=== PATIENT | female | born 1985 | race Caucasian/White ===

== ENCOUNTER 2020-03-11 16:19 | Outpatient (CLI) | payer MEDICAID, SELFPAY ==
--- NOTE | 2020-03-11 | XRR_ITS ---
PROCEDURE INFORMATION: Exam: XR Chest, 2 Views Exam date and time: 03/11/2020 4:50 PM Age: 34 years old Clinical indication: Cough TECHNIQUE: Imaging protocol: XR of the chest Views: 2 views. COMPARISON: CR Chest 2 views* [id number] 05/05/2017 3:21 PM FINDINGS: Lungs: Unremarkable. No consolidation. Pleural space: Unremarkable. No pleural effusion. No pneumothorax. Heart/Mediastinum: Unremarkable. No cardiomegaly. Bones/joints: Unremarkable. Metallic nipple rings are in place stable since prior XR/XR chest 2V* [id number] IMPRESSION: No acute findings.
== END 2020-03-11 16:20 | disposition home or self-care (01) ==
PROVIDERS: Family Provider Family Medicine; PCP Internal Medicine; Visit Provider Family Medicine
DX: R05 Cough (principal); J06.9 Acute upper respiratory infection, unspecified
CPT/HCPCS: 71046

== ENCOUNTER 2020-03-23 09:42 | Emergency (ER) | payer MEDICAID, SELFPAY ==
[2020-03-23 09:48] VITALS: BMI 36.8
--- NOTE | 2020-03-23 09:54 | ED_ITS ---
HPI - SOB/Dyspnea General: Chief Complaint: Shortness of Breath/Dyspnea Stated Complaint: SOB Time Seen by Provider: 03/23/20 09:50 History of Present Illness: HPI Narrative: 34-year-old female comes in complaining of shortness of breath she was evaluated about 10 days ago had a chest x-ray and Kovic test both of which were negative she has had temps up to 101 at home that she is measured she has a cough is worse when she lays down she generally smokes a pack a day of cigarettes but is not smoked in a week because of the worsening cough and congestion. MD elicited complaint: shortness of breath and cough Pertinent past history: asthma Onset (ago): day(s) (10 ) Context: occurred during exertion Timing: constant Severity: moderate Exacerbating factors: lying flat and coughing Relieving factors: rest and bronchodilators Known history of: asthma Associated symptoms: Reports chest congestion, cough, diaphoresis, fever(s) and orthopnea; Deny hemoptysis, lightheadedness, myalgias, nausea or vomiting Treatment prior to arrival: bronchodilator Review of Systems Const: Reports: fever(s) and diaphoresis ENMT: Denies: throat pain, ear or mastoid pain, nasal discharge or nasal congestion Card: Reports: orthopnea; Denies: lightheadedness Resp: Reports: chest congestion; Denies: hemoptysis GI: Denies: nausea or vomiting : Denies: flank pain, difficulty voiding, dysuria, urinary frequency or urinary urgency Skin/Breast: Denies: rash or pruritus [facility] PFSH: Social History (Updated 03/23/20 @ 09:55 by Marlene Houston RN) Smoking and tobacco status: former smoker Female Reproductive History: Date of last menstrual period: 02/28/20 Physical Exam Const: COMMON NORMALS: no acute distress GENERAL APPEARANCE: cooperative and comfortable ORIENTATION/CONSCIOUSNESS: Yes awake, Yes oriented to person, Yes oriented to place and Yes oriented to time HENMT: COMMON NORMALS: normocephalic, atraumatic and hearing grossly normal bilaterally HEAD & SCALP: normocephalic and atraumatic Eye: COMMON NORMALS: Equal, round and reactive pupils present, EOMs intact bilaterally, conjunctivae normal and no scleral icterus CONJUNCTIVA: Yes conjunctivae normal PUPIL: Yes Equal, round and reactive pupils present Neck/C-Spine: COMMON NORMALS: full ROM, no lymphadenopathy, supple and no JVD Lymph: LYMPHATIC: no lymphadenopathy noted and no lymphedema noted Resp: AUSCULTATION: rhonchi lower bilaterally and wheezes expiratory wheezes Cardio: COMMON NORMALS: no JVD, regular rate, regular rhythm and No murmurs present (Cardio) RATE: regular rate RHYTHM: regular rhythm GI: COMMON NORMALS: Soft to palpation and No hepatosplenomegaly present AUSCULTATION: Yes normoactive bowel sounds PALPATION: Yes Soft to palpation, No Tenderness to palpation present (GI), No Guarding due to palpation present (GI) and Yes No hepatosplenomegaly present Extremity: COMMON NORMALS: normal to inspection, capillary refill normal, no clubbing, cyanosis or edema, no calf tenderness and no pedal edema Neuro: SENSORIUM/ORIENTATION: Yes oriented to person, Yes oriented to place and Yes oriented to time Skin: COMMON NORMALS: no rashes or lesions noted GENERAL SKIN EXAM: no rashes or lesions noted Course Vital Signs: Vital signs: Vital Signs Temperature 98.5 F 03/23/20 11:54 Pulse Rate 94 03/23/20 11:54 Respiratory Rate 20 H 03/23/20 11:54 Blood Pressure 142/77 03/23/20 11:54 Pulse Oximetry 98 03/23/20 11:54 MDM - SOB/Dyspnea MDM Narrative: Medical decision making narrative: With the patient. And she is having a asthma exacerbation will start on doxycycline Medrol Dosepak albuterol follow-up with her primary care doctor within the week return sooner if she has any further problems. Lab Data: Labs: Lab Results 03/23/20 03/23/20 03/23/20 Range/Units 10:17 10:44 10:44 WBC 12.2 H (4.0-10.0) 10^3/ uL RBC 5.28 (4.1-5.3) 10^6/u L Hgb 14.4 (11.5-15.3) g/dL Hct 45.0 (37.0-47.0) % MCV 85.2 (81-99) fL MCH 27.3 L (28.0-34.0) pg MCHC 32.0 (30.0-36.0) g/dL RDW 13.2 (12.1-15.1) % Plt Count 341 (130-400) 10^3/c mm MPV 10.0 (7.4-10.4) fL Neut % (Auto) 58.5 % Lymph % (Auto) 20.5 % [place] % (Auto) 7.8 % Eos % (Auto) 11.8 % Baso % (Auto) 0.7 % Neut # (Auto) 7.12 (1.8-7.7) 10^3/u L Lymph # (Auto) 2.5 (0.8-4.8) 10^3/u L [place] # (Auto) 1.0 H (0.2-0.9) 10^3/u L Eos # (Auto) 1.4 H (0.0-0.8) 10^3/u L Baso # (Auto) 0.1 (0.0-0.1) 10^3/u L Nucleated RBC % (a uto) 0 % Nucleated RBCs # 0.0 /100WBC D-Dimer 0.39 (0-0.59) ug/mIFE U Specimen Type Arterial Sample Site Radial, right ABG pH 7.43 (7.35-7.45) ABG pCO2 37.0 (35-45) mmHg ABG pO2 77.6 L (80.0-100.0) mmH g ABG HCO3 24.3 (22-26) mmol/L ABG O2 Saturation 96.8 ABG Base Excess 0.2 (-2.0-2.0) mmol/ L Nickolas Test Pos A-a O2 Gradient 3.4 L (5-10) mmHg Hematocrit 44.4 (37-47) % Hgb O2 Saturation 95.2 (95-100) % Carboxyhemoglobin 0.7 (0.4-20.1) %THgb Methemoglobin 0.9 (0.4-1.5) % Total Hemoglobin 14.5 (12-16) g/dL Sodium 136.0 (131-143) mmol/L Potassium 4.2 (3.5-5.0) mmol/L Glucose 95.0 (70-115) mg/dL Ionized Calcium 1.2 (1.1-1.4) mmol/L O2 Delivery Device Room air FiO2 21.0 % Brake Drum Lathe Operator ID glc Chloride (98-107) mmol/L Carbon Dioxide (22-29) mmol/L Anion Gap (5-19) BUN (6-20) mg/dL Creatinine (0.5-0.9) mg/dL GFR Calculation (90-130) mL/min Calculated Osmolal ity (285-295) mOsm/k g Calcium (8.5-10.5) mg/dL Total Bilirubin (0.15-1.2) mg/dL AST (0-32) U/L ALT (0-33) U/L Alkaline Phosphata se (35-105) IU/L Total Protein (6.6-8.7) g/dL Albumin (3.5-5.2) g/dL Globulin (1.3-4.6) g/dL SARS-CoV-2 RNA (RT -PCR) (NOT DETECTED) 03/23/20 03/23/20 Range/Units 10:44 11:45 WBC (4.0-10.0) 10^3/ uL RBC (4.1-5.3) 10^6/u L Hgb (11.5-15.3) g/dL Hct (37.0-47.0) % MCV (81-99) fL MCH (28.0-34.0) pg MCHC (30.0-36.0) g/dL RDW (12.1-15.1) % Plt Count (130-400) 10^3/c mm MPV (7.4-10.4) fL Neut % (Auto) % Lymph % (Auto) % [place] % (Auto) % Eos % (Auto) % Baso % (Auto) % Neut # (Auto) (1.8-7.7) 10^3/u L Lymph # (Auto) (0.8-4.8) 10^3/u L [place] # (Auto) (0.2-0.9) 10^3/u L Eos # (Auto) (0.0-0.8) 10^3/u L Baso # (Auto) (0.0-0.1) 10^3/u L Nucleated RBC % (a uto) % Nucleated RBCs # /100WBC D-Dimer (0-0.59) ug/mIFE U Specimen Type Sample Site ABG pH (7.35-7.45) ABG pCO2 (35-45) mmHg ABG pO2 (80.0-100.0) mmH g ABG HCO3 (22-26) mmol/L ABG O2 Saturation ABG Base Excess (-2.0-2.0) mmol/ L Nickolas Test A-a O2 Gradient (5-10) mmHg Hematocrit (37-47) % Hgb O2 Saturation (95-100) % Carboxyhemoglobin (0.4-20.1) %THgb Methemoglobin (0.4-1.5) % Total Hemoglobin (12-16) g/dL Sodium 134 L (131-143) mmol/L Potassium 4.2 (3.5-5.0) mmol/L Glucose 96 (70-115) mg/dL Ionized Calcium (1.1-1.4) mmol/L O2 Delivery Device FiO2 % Brake Drum Lathe Operator ID Chloride 99 (98-107) mmol/L Carbon Dioxide 26 (22-29) mmol/L Anion Gap 13.2 (5-19) BUN 13 (6-20) mg/dL Creatinine 0.8 (0.5-0.9) mg/dL GFR Calculation 81.2 L (90-130) mL/min Calculated Osmolal ity 274 L (285-295) mOsm/k g Calcium 8.9 (8.5-10.5) mg/dL Total Bilirubin 0.3 (0.15-1.2) mg/dL AST 26 (0-32) U/L ALT 30 (0-33) U/L Alkaline Phosphata se 105 (35-105) IU/L Total Protein 7.6 (6.6-8.7) g/dL Albumin 4.5 (3.5-5.2) g/dL Globulin 3.1 (1.3-4.6) g/dL SARS-CoV-2 RNA (RT -PCR) Not detected (NOT DETECTED) Discharge Plan Discharge Patient Disposition: Home Clinical Impression: Asthma with exacerbation Condition: Stable Prescriptions: New doxycycline hyclate 100 mg capsule 100 mg PO BID 10 Days Qty: 20 RF: 0 Medrol (Corwin) 4 mg tablets,dose pack See Rx Instructions .ROUTE .COMPLEX Qty: 21 RF: 0 albuterol sulfate 90 mcg/actuation HFA aerosol inhaler 2 inh INHALATION Q4H PRN (Reason: shortness of breath or wheezing) Qty: 18 RF: 0 Discharge Orders: Discharge Order (Routine); Ordered 03/23/20 Ordered By: Peter Malhotra Referrals: Jesenia Toth MD [Primary Care Provider] - Discharge Diet: Usual diet Discharge Activity: Limit activity as instructed Activity Restrictions/Additional Instructions: Your tests for COVID-19 today, you should remained self quarantine until these results are back we will call you with the are available. We will start you on a steroid burst and taper as well as continue to use albuterol and also start on doxycycline. If you have any worsening of symptoms return to the emergency room Discharge Date/Time: 03/23/20 11:55 Coding Level of Care Code ED Retail Asset Protection Specialist for Isaac Fwd Exam Comprehensive
[2020-03-23 09:55] VITALS: BP 136/107; PULSE 94; RESP 24; TEMP 36.9; O2SAT 98
--- NOTE | 2020-03-23 09:58 | XRR_ITS ---
PROCEDURE INFORMATION: Exam: XR Chest, 1 View Exam date and time: 03/23/2020 10:00 AM Age: 34 years old Clinical indication: Dyspnea and shortness of breath; Additional info: Cough/dyspnea TECHNIQUE: Imaging protocol: XR of the chest Views: 1 view. COMPARISON: CR XR chest 2V* [id number] 03/11/2020 4:46 PM FINDINGS: Lungs: Unremarkable. No consolidation. Pleural space: Unremarkable. No pleural effusion. No pneumothorax. Heart/Mediastinum: Unremarkable. No cardiomegaly. Bones/joints: Unremarkable. XR/XR chest 1V portable [id number] IMPRESSION: No acute findings.
[2020-03-23 10:27] LABS: ABG PH Result 7.43 (7.35-7.45); Alveolar-Arterial Oxygen Gradi 3.4 mmHg (5-10); Arterial Blood Gas Hematocrit 44.4 % (37-47); Base Excess ABG 0.2 mmol/L (-2.0-2.0); Blood Gas Allen Test Pos; Blood Gas Operator Identificat glc; Blood Gas Sample Site Radial, right; Blood Gas Sample Type Arterial; Carboxyhemoglobin 0.7 %THgb (0.4-20.1); HCO3 ABG 24.3 mmol/L (22-26); HGB O2 Sat 95.2 % (95-100); Ionized Calcium Level - ABG 1.2 mmol/L (1.1-1.4); Methemoglobin 0.9 % (0.4-1.5); Oxygen Device ROOM AIR; Oxygen Saturation ABG 96.8; PO2 ABG 77.6 mmHg (80.0-100.0); Potassium Level - ABG 4.2 mmol/L (3.5-5.0); Total Hemoglobin 14.5 g/dL (12-16)
[2020-03-23] MEDS: dexamethasone 10 mg/mL INJ IVP (10:44)
[2020-03-23 11:02] LABS: Basophils # 0.1 10^3/uL (0.0-0.1); Basophils % 0.7 %; Eosinophils # 1.4 10^3/uL (0.0-0.8); Eosinophils % 11.8 %; Hemoglobin 14.4 g/dL (11.5-15.3); Lymphocytes # 2.5 10^3/uL (0.8-4.8); Lymphocytes % 20.5 %; Mean Corpuscular Hemoglobin 27.3 pg (28.0-34.0); Mean Corpuscular Volume 85.2 fL (81-99); Monocytes % 7.8 %; Neutrophils # 7.12 10^3/uL (1.8-7.7); Neutrophils % 58.5 %; Nucleated Red Blood Cells % 0 %; Platelet Count 341 10^3/cmm (130-400); Red Blood Count 5.28 10^6/uL (4.1-5.3); Red Cell Distribution Width 13.2 % (12.1-15.1); White Blood Count 12.2 10^3/uL (4.0-10.0)
[2020-03-23 11:17] LABS: D Dimer 0.39 ug/mIFEU (0-0.59)
[2020-03-23 11:19] LABS: Alanine Aminotransferase 30 U/L (0-33); Albumin Level 4.5 g/dL (3.5-5.2); Alkaline Phosphatase 105 IU/L (35-105); Anion Gap 13.2 (5-19); Aspartate Amino Transferase 26 U/L (0-32); Blood Urea Nitrogen 13 mg/dL (6-20); Calcium 8.9 mg/dL (8.5-10.5); Carbon Dioxide 26 mmol/L (22-29); Chloride 99 mmol/L (98-107); Globulin 3.1 g/dL (1.3-4.6); Glomerular Filtration Rate 81.2 mL/min (90-130); Glucose 96 mg/dL (65-115); Osmolality Calculated 274 mOsm/kg (285-295); Potassium 4.2 mmol/L (3.5-5.1); Sodium 134 mmol/L (136-145); Total Bilirubin 0.3 mg/dL (0.15-1.2); Total Protein 7.6 g/dL (6.6-8.7)
[2020-03-23 11:54] VITALS: BP 142/77; PULSE 94; RESP 20; TEMP 36.9; O2SAT 98
--- NOTE | 2020-03-23 11:55 | PC.NURSE ---
[facility] Covid test done on patient prior to DC.
[2020-03-24 21:49] LABS: Quest SARS-CoV-2 RNA NOT DETECTED (NOT DETECTED)
== END 2020-03-23 11:55 | disposition home or self-care (01) ==
PROVIDERS: Emergency Provider Family Medicine; PCP Internal Medicine
DX: J45.901 Unspecified asthma with (acute) exacerbation (principal); Z87.891 Personal history of nicotine dependence
CPT/HCPCS: 12345; 36600; 71045; 80051; 80053; 82810; 83986; 85025; 85378; 87635; 96374; 96375; 99281; 99283; J1100

== ENCOUNTER 2020-04-08 14:59 | Emergency (ER) | payer OTHER, SELFPAY ==
[2020-04-08 15:01] VITALS: BP 92/61; PULSE 96; RESP 16; TEMP 36.1; O2SAT 97; BMI 36.0
--- NOTE | 2020-04-08 15:20 | XRR_ITS ---
PROCEDURE INFORMATION: Exam: XR Left Ankle Exam date and time: 04/08/2020 3:22 PM Age: 34 years old Clinical indication: Pain and injury or trauma; Fall; Initial encounter; Blunt trauma; Ankle; Left; Injury date: 04/08/20; Additional info: Injury/pain TECHNIQUE: Imaging protocol: XR Left ankle. Views: 3 or more views. COMPARISON: No relevant prior studies available. FINDINGS: Bones/joints: Normal. Soft tissues: Normal. XR/XR ankle LT min 3V* [id number] IMPRESSION: No acute findings.
--- NOTE | 2020-04-08 15:20 | XRR_ITS ---
PROCEDURE INFORMATION: Exam: XR Left Foot Complete Exam date and time: 04/08/2020 3:22 PM Age: 34 years old Clinical indication: Pain and injury or trauma; Fall; Initial encounter; Blunt trauma; Foot; Left; Injury date: 04/08/20; Additional info: Injury/pain TECHNIQUE: Imaging protocol: XR Left foot. Views: 3 or more views. COMPARISON: No relevant prior studies available. FINDINGS: Bones/joints: Negative for acute bony abnormality. Soft tissues: Normal. XR/XR foot LT min 3V* [id number] IMPRESSION: No acute findings.
--- NOTE | 2020-04-08 15:21 | W.ED.FALL ---
HPI - Fall General: Chief Complaint: Fall Stated Complaint: fall/wc Time Seen by Provider: 04/08/20 15:16 Source: patient Mode of arrival: ambulatory Limitations: no limitations History of Present Illness: HPI Narrative: Fabi is a nice 34-year-old female who comes in complaining of left ankle and foot pain after falling. Patient was walking out of a client's home when she rolled her ankle going down a stair. She has abrasion to her right knee but claims it is only a skin abrasion denies any deep pain. She complains most of her pain to her left ankle and foot on the lateral aspect. Patient denies any numbness or weakness distal. She denies any head or neck pain or injury. She denies any other complaints or concerns. Review of Systems General: Reports: 10 or more systems reviewed and unremarkable except in HPI and below PFSH ED PFSH: Social History (Updated 03/23/20 @ 09:55 by Marlene Houston RN) Smoking and tobacco status: former smoker Female Reproductive History: Date of last menstrual period: 02/28/20 Physical Exam Const: COMMON NORMALS: no acute distress, patient oriented x3, no limitations, healthy appearing and well nourished GENERAL APPEARANCE: cooperative, well kempt and well developed HENMT: COMMON NORMALS: normocephalic, atraumatic, external ears normal, EAC's normal and Normal external nose present HEAD & SCALP: normal to inspection, normocephalic and atraumatic FACE & SINUS: normal facial exam and face symmetric NOSE: Normal external nose present and Normal nares present EXTERNAL EAR: Yes external ears normal EXTERNAL AUDITORY CANAL: EAC's normal MOUTH: Normal oral and palatal mucosa present, lip normal and tongue normal Eye: COMMON NORMALS: Equal, round and reactive pupils present and conjunctivae normal GENERAL EYE: appearance normal, both eyes and all related structures ALIGNMENT: Yes alignment normal PERIORBITAL: periorbital findings normal EYELID: eyelids normal CONJUNCTIVA: Yes conjunctivae normal SCLERA: sclerae normal PUPIL: Yes Equal, round and reactive pupils present Neck/C-Spine: COMMON NORMALS: full ROM, no lymphadenopathy, supple, no meningeal signs and no JVD GENERAL: Yes normal visual inspection and Yes trachea midline Chest: COMMONS NORMALS: normal inspection of the chest and normal palpation of entire chest wall Resp: COMMON NORMALS: normal respiratory effort, No retractions, No use of accessory muscles and clear to auscultation bilaterally EFFORT & INSPECTION: Yes able to speak in complete sentences and Yes symmetric chest movement AUSCULTATION: clear to auscultation bilaterally, no crackles, no rales, no rhonchi and no wheezes Cardio: COMMON NORMALS: no JVD, regular rate, regular rhythm, S1 normal heart sound present and S2 normal heart sound present RATE: regular rate RHYTHM: regular rhythm HEART SOUNDS: S1 normal heart sound present, S2 normal heart sound present, no click, no gallops, no murmurs, no rubs and abnormal split S2 GI: COMMON NORMALS: Soft to palpation and No hepatosplenomegaly present PALPATION: Yes Soft to palpation, No Tenderness to palpation present (GI), No Guarding due to palpation present (GI), No Rigid due to palpation, Yes No hepatosplenomegaly present, No Hernia present, No Palpable mass present and No Pulsatile mass present : COMMON NORMALS: Yes no CVA tenderness BLADDER/KIDNEY EXAM: Yes no CVA tenderness EXTERNAL FEMALE EXAM: No Hernia present Back/Pelvis: COMMON NORMALS: no CVA tenderness, thoracic and lumbar spine normal to inspection, no thoracic nor lumbar tenderness and thoraco-lumbar ROM normal Extremity: COMMON NORMALS: capillary refill normal, no clubbing, cyanosis or edema and no calf tenderness NARRATIVE EXTREMITY EXAM: Left foot and ankle with tenderness to palpation laterally. Strong dorsalis pedis pulse present. No numbness or weakness to the toes. Mild swelling over the lateral malleolus. Neuro: COMMON NORMALS: patient oriented x3, CN's II-XII intact bilaterally, moves all extremities, no focal motor deficits and no sensory deficits noted MENINGEAL SIGNS: Yes no meningeal signs SPEECH: speech normal Psych: COMMON NORMALS: mental status grossly normal, Normal thought process present, cooperative, normal affect, speech normal and activity/motor behavior normal APPEARANCE: Yes well kempt SPEECH: Yes normal speech THOUGHT PROCESS: Normal thought process present Skin: COMMON NORMALS: no rashes or lesions noted, turgor normal, no jaundice, no petechiae and no mottling GENERAL SKIN EXAM: no rashes or lesions noted and turgor normal Course Vital Signs: Vital signs: Vital Signs Temperature 96.9 F L 04/08/20 15:01 Pulse Rate 97 04/08/20 16:11 Respiratory Rate 14 04/08/20 16:11 Blood Pressure 112/94 04/08/20 16:11 Pulse Oximetry 98 04/08/20 16:11 MDM - Fall MDM Narrative: Medical decision making narrative: Patient does not have evidence of definitive fracture on x-ray. I will go and give her a stirrup splint and she has crutches at home that she says she can use. She will follow-up with Dr. Burnett for reevaluation if her pain continues. Imaging Data^: Left Foot and Ankle: Attestation: I personally reviewed and interpreted this imaging study as follows: My impression: No obvious fractures dislocations. Discussed with Dr. Leos. Discharge Plan Discharge Patient Disposition: Home Clinical Impression: Ankle sprain Qualifiers: Encounter type: initial encounter Involved ligament of ankle: unspecified ligament Laterality: left Qualified Code(s): S93.402A - Sprain of unspecified ligament of left ankle, initial encounter Condition: Stable Prescriptions: No Action Medrol (Corwin) 4 mg tablets,dose pack See Rx Instructions .ROUTE .COMPLEX Qty: 21 RF: 0 albuterol sulfate 90 mcg/actuation HFA aerosol inhaler 2 inh INHALATION Q4H PRN (Reason: shortness of breath or wheezing) Qty: 18 RF: 0 Discharge Orders: Discharge Order (Routine); Ordered 04/08/20 Ordered By: Bre Venegas Referrals: Jesenia Toth MD [Primary Care Provider] - Javon Burnett MD [Physician] - 1-3 days Discharge Diet: Advance as tolerated Discharge Activity: Limit activity as instructed and Use walker/crutches as instructed Patient Instructions: Ankle Sprain (ED) Activity Restrictions/Additional Instructions: Please return to the ER immediately for any of the signs or symptoms listed on your discharge instruction sheets, worsening/changing of your symptoms, you are not getting better as quickly as expected, or for ANY other cause or concerns. Use your crutches and stirrup splint at all times until your pain is gone. Be certain to follow-up with Dr. Burnett for recheck. Discharge Date/Time: 04/08/20 16:15 Coding Level of Care Code ED Business Objects Report Developer for Chg Fwd Exam Comprehensive
[2020-04-08 15:35] VITALS: BP 129/65; PULSE 105; RESP 14; O2SAT 98
[2020-04-08 16:11] VITALS: BP 112/94; PULSE 97; RESP 14; O2SAT 98
--- NOTE | 2020-04-10 11:09 | DCPLANNER ---
manager sports had message to schedule a follow up appointment for patient with ortho. manager sports called the ortho clinic spoke with Clarissa, gave clinic patients information. manager sports was told that patients information would be printed and reviewed. Clinic will call patient with appointment information.
--- NOTE | 2020-04-17 10:08 | DCPLANNER ---
manager customs called Pat at the ortho clinic to confirm that a follow up appointment had been scheduled for patient. manager customs was told that patient was a workman compensation visit, and that patient followed up with who her employer told her to follow up with.
== END 2020-04-08 16:15 | disposition home or self-care (01) ==
PROVIDERS: Emergency Provider Emergency Medicine; PCP Internal Medicine
DX: S93.402A Sprain of unspecified ligament of left ankle, initial encounter (principal); Z87.891 Personal history of nicotine dependence; X50.1XXA Overexertion from prolonged static or awkward postures, initial encounter
CPT/HCPCS: 12345; 29515; 73610; 73630; 99281; 99283

== ENCOUNTER 2020-06-02 02:21 | Emergency (ER) | payer MEDICAID, SELFPAY ==
[2020-06-02] VITALS (12 sets, daily range): BP systolic 100–120; BP diastolic 57–88; PULSE 108–128; RESP 20–32; TEMP 37–37.1; O2SAT 91–97; BMI 36.8
--- NOTE | 2020-06-02 02:50 | ECG_ITS ---
[facility] Test Date: 2020-06-02 Pat Name: Fabi Raymundo Department: Room: Gender: Female Tree Planter: : 1985 Requested By: Wali Beebe Order Number: [id number] Mckeon MD: Kandy Benitez M.D. Measurements Intervals [place] Rate: 113 P: 62 ID: [id number] QRS: 58 QRSD: 90 T: 29 QT: 318 QTc: 436 Interpretive Statements SINUS TACHYCARDIA POSSIBLE RIGHT VENTRICULAR CONDUCTION DELAY [RSR (QR) IN V1/V2] ABNORMAL RHYTHM ECG No previous ECG available for comparison Electronically Signed On 06-02-2020 12:09:58 CDT by Kandy Benitez M.D. [email or web address]
--- NOTE | 2020-06-02 02:50 | XRR_ITS ---
PROCEDURE INFORMATION: Exam: XR Chest, 1 View Exam date and time: 06/02/2020 3:03 AM Age: 35 years old Clinical indication: Dyspnea; Additional info: SOB TECHNIQUE: Imaging protocol: XR of the chest Views: 1 view. COMPARISON: CR XR chest 1V portable [id number] 03/23/2020 10:17 AM FINDINGS: Lungs: Unremarkable. No consolidation. Pleural space: Unremarkable. No pleural effusion. No pneumothorax. Heart/Mediastinum: Unremarkable. No cardiomegaly. Bones/joints: Unremarkable. XR/XR chest 1V portable [id number] IMPRESSION: No acute findings.
[2020-06-02] MEDS: albuterol 8 gm MDI 4 PUFF INHALATION (02:58)
--- NOTE | 2020-06-02 03:19 | ED_ITS ---
Documented by User: Wali Prescott, 06/02/20 21:59 HPI - SOB/Dyspnea General: Chief Complaint: Shortness of Breath/Dyspnea Stated Complaint: difficulty breathing, covid symptoms Time Seen by Provider: 06/02/20 02:41 History of Present Illness: HPI Narrative: 35-year-old female presents with shortness of breath and cough. She says she has been short of breath since March on and off. She says that she improved for a while, and then started smoking again. She quit smoking for the second time a week and a half ago. She remains short of breath. She says that she had a fever of over 100 yesterday. She is coughing up sputum. This is despite breathing treatments at home. Associated symptoms: Reports fever(s); Deny abdominal pain, chest pain, dizziness, nausea, palpitations or vomiting Review of Systems Const: Reports: fever(s) and chills Eyes: Denies: change in vision ENMT: Denies: odynophagia, swelling of lips/tongue, post nasal drip or sinus pain Card: Denies: chest pain, palpitations or irregular heart rhythm Resp: Reports: dyspnea, productive cough and wheezing GI: Denies: abdominal pain, nausea or vomiting : Denies: dysuria or hematuria Musc: Denies: neck pain, back pain, joint redness or joint warmth Skin/Breast: Denies: rash or erythema Neuro: Denies: headache(s), dizziness or vertigo Psych: Denies: anxiety PFSH ED PFSH: Social History (Updated 05/17/20 @ 18:42 by Matthew Velázquez RN) Smoking and tobacco status: current every day smoker cigarettes Packs smoked per day: 0.5 Alcohol intake: never Female Reproductive History: Date of last menstrual period: 04/28/20 Physical Exam Const: GENERAL APPEARANCE: well developed ORIENTATION/CONSCIOUSNESS: Yes oriented to person, Yes oriented to place and Yes oriented to time HENMT: COMMON NORMALS: normocephalic, external ears normal and Normal external nose present HEAD & SCALP: normocephalic FACE & SINUS: normal facial exam NOSE: Normal external nose present and No nasal discharge present EXTERNAL EAR: Yes external ears normal THROAT: posterior oropharynx normal; no peritonsillar mass Eye: COMMON NORMALS: Equal, round and reactive pupils present, EOMs intact bilaterally and conjunctivae normal EYELID: eyelids normal CONJUNCTIVA: Yes conjunctivae normal PUPIL: Yes Equal, round and reactive pupils present Neck/C-Spine: GENERAL: No tracheal deviation Chest: COMMONS NORMALS: normal inspection of the chest CHEST: No tenderness Resp: COMMON NORMALS: negative for clear to auscultation bilaterally EFFORT & INSPECTION: Yes tachypneic, Yes respiratory distress, Yes retractions, No uses accessory muscles and No tracheal deviation AUSCULTATION: not clear to auscultation bilaterally, no rhonchi, wheezes and diminished lung sounds Cardio: COMMON NORMALS: regular rate and regular rhythm RATE: regular rate RHYTHM: regular rhythm HEART SOUNDS: no murmurs PERIPHERAL PULSES: radial pulses present GI: INSPECTION: No abdominal distension AUSCULTATION: No Hyperactive bowel sounds present and No Hypoactive bowel sounds present PALPATION: No Guarding due to palpation present (GI) and No Rigid due to palpation PERCUSSION: no dullness to percussion and no tympanic to percussion Neuro: SENSORIUM/ORIENTATION: Yes oriented to person, Yes oriented to place and Yes oriented to time Psych: COMMON NORMALS: mental status grossly normal Skin: COMMON NORMALS: no rashes or lesions noted GENERAL SKIN EXAM: no rashes or lesions noted Course Vital Signs: Vital signs: Vital Signs Temperature 98.6 F 06/02/20 07:17 Pulse Rate 110 H 06/02/20 07:17 Respiratory Rate 25 H 06/02/20 07:17 Blood Pressure 106/76 06/02/20 07:17 Pulse Oximetry 93 06/02/20 07:17 MDM - SOB/Dyspnea MDM Narrative: Medical decision making narrative: 35-year-old female. She presents short of breath and wheezing. She is hypoxic with room air sats in the low 90s to upper 80s. Blood gas was not obtainable. White blood cell count is 12.9. Her electrolytes are normal. Chest x-ray was equivocal. She has infiltrates in her bases bilaterally on CTA. No pulmonary embolism. She is received albuterol and dexamethasone here. She remains tachycardic in the 100s to 110s. Her rapid Covid antigen test is pending. Lab Data: Labs: Lab Results 06/02/20 06/02/20 06/02/20 Range/Units 03:25 03:49 03:49 WBC 12.9 H (4.0-10.0) 10^3/ uL RBC 4.78 (4.1-5.3) 10^6/u L Hgb 12.9 (11.5-15.3) g/dL Hct 40.8 (37.0-47.0) % MCV 85.4 (81-99) fL MCH 27.0 L (28.0-34.0) pg MCHC 31.6 (30.0-36.0) g/dL RDW 13.0 (12.1-15.1) % Plt Count 360 (130-400) 10^3/c mm MPV 9.9 (7.4-10.4) fL Neut % (Auto) 62.7 % Lymph % (Auto) 20.1 % [place] % (Auto) 6.7 % Eos % (Auto) 9.4 % Baso % (Auto) 0.7 % Neut # (Auto) 8.11 H (1.8-7.7) 10^3/u L Lymph # (Auto) 2.6 (0.8-4.8) 10^3/u L [place] # (Auto) 0.9 (0.2-0.9) 10^3/u L Eos # (Auto) 1.2 H (0.0-0.8) 10^3/u L Baso # (Auto) 0.1 (0.0-0.1) 10^3/u L Nucleated RBC % (a uto) 0 % Nucleated RBCs # 0.0 /100WBC D-Dimer 0.42 (0-0.59) ug/mIFE U Sodium (136-145) mmol/L Potassium (3.5-5.1) mmol/L Chloride (98-107) mmol/L Carbon Dioxide (22-29) mmol/L Anion Gap (5-19) BUN (6-20) mg/dL Creatinine (0.5-0.9) mg/dL GFR Calculation (90-130) mL/min Glucose (65-115) mg/dL Calculated Osmolal ity (285-295) mOsm/k g Lactic Acid (0.5-2.2) mmol/L Calcium (8.5-10.5) mg/dL Total Bilirubin (0.15-1.2) mg/dL AST (0-32) U/L ALT (0-33) U/L Alkaline Phosphata se (35-105) IU/L C-Reactive Protein (0.0-4.9) mg/L NT-Pro-B Natriuret Pep (0-125) pg/mL Total Protein (6.6-8.7) g/dL Albumin (3.5-5.2) g/dL Globulin (1.3-4.6) g/dL Procalcitonin (0-0.5) ng/mL Urine Opiates Scre en Negative (Negative) ng/mL Ur Barbiturates Sc reen Negative (Negative) ng/mL Ur Phencyclidine S crn Negative (Negative) ng/mL Ur Amphetamines Sc reen Negative (Negative) ng/mL U Benzodiazepines Scrn Negative (Negative) ng/mL Urine Cocaine Scre en Negative (Negative) ng/mL U Marijuana (THC) Screen Negative (Negative) ng/mL SARS-CoV-2 Ag (Rap id) (Negative) 06/02/20 06/02/20 06/02/20 Range/Units 03:49 03:49 05:45 WBC (4.0-10.0) 10^3/ uL RBC (4.1-5.3) 10^6/u L Hgb (11.5-15.3) g/dL Hct (37.0-47.0) % MCV (81-99) fL MCH (28.0-34.0) pg MCHC (30.0-36.0) g/dL RDW (12.1-15.1) % Plt Count (130-400) 10^3/c mm MPV (7.4-10.4) fL Neut % (Auto) % Lymph % (Auto) % [place] % (Auto) % Eos % (Auto) % Baso % (Auto) % Neut # (Auto) (1.8-7.7) 10^3/u L Lymph # (Auto) (0.8-4.8) 10^3/u L [place] # (Auto) (0.2-0.9) 10^3/u L Eos # (Auto) (0.0-0.8) 10^3/u L Baso # (Auto) (0.0-0.1) 10^3/u L Nucleated RBC % (a uto) % Nucleated RBCs # /100WBC D-Dimer (0-0.59) ug/mIFE U Sodium 141 (136-145) mmol/L Potassium 3.6 (3.5-5.1) mmol/L Chloride 103 (98-107) mmol/L Carbon Dioxide 22 (22-29) mmol/L Anion Gap 19.6 H (5-19) BUN 8 (6-20) mg/dL Creatinine 0.8 (0.5-0.9) mg/dL GFR Calculation 80.7 L (90-130) mL/min Glucose 137 H (65-115) mg/dL Calculated Osmolal ity 292 (285-295) mOsm/k g Lactic Acid 1.1 (0.5-2.2) mmol/L Calcium 9.3 (8.5-10.5) mg/dL Total Bilirubin 0.4 (0.15-1.2) mg/dL AST 13 (0-32) U/L ALT 12 (0-33) U/L Alkaline Phosphata se 111 H (35-105) IU/L C-Reactive Protein 47.0 H (0.0-4.9) mg/L NT-Pro-B Natriuret Pep 87 (0-125) pg/mL Total Protein 7.0 (6.6-8.7) g/dL Albumin 4.0 (3.5-5.2) g/dL Globulin 3.0 (1.3-4.6) g/dL Procalcitonin 0.06 (0-0.5) ng/mL Urine Opiates Scre en (Negative) ng/mL Ur Barbiturates Sc reen (Negative) ng/mL Ur Phencyclidine S crn (Negative) ng/mL Ur Amphetamines Sc reen (Negative) ng/mL U Benzodiazepines Scrn (Negative) ng/mL Urine Cocaine Scre en (Negative) ng/mL U Marijuana (THC) Screen (Negative) ng/mL SARS-CoV-2 Ag (Rap id) Negative (Negative) Discharge Plan Discharge Patient Disposition: Home Clinical Impression: Community acquired pneumonia Qualifiers: Laterality: unspecified laterality Qualified Code(s): J18.9 - Pneumonia, unspecified organism Condition: Stable Prescriptions: New prednisone 50 mg tablet 50 mg PO DAILY Qty: 5 RF: 0 albuterol sulfate 90 mcg/actuation HFA aerosol inhaler 2 inh INHALATION Q6H PRN (Reason: shortness of breath or wheezing) Qty: 8 RF: 0 doxycycline hyclate 100 mg capsule 100 mg PO BID 7 Days Qty: 14 RF: 0 No Action Medrol (Corwin) 4 mg tablets,dose pack See Rx Instructions .ROUTE .COMPLEX Qty: 21 RF: 0 albuterol sulfate 90 mcg/actuation HFA aerosol inhaler 2 inh INHALATION Q4H PRN (Reason: shortness of breath or wheezing) Qty: 18 RF: 0 Discharge Orders: Discharge Order (Routine); Ordered 06/02/20 Ordered By: Leeann Diaz Referrals: Jesenia Toth MD [Primary Care Provider] - 1-3 days Discharge Diet: Advance as tolerated Discharge Activity: Resume usual activity Patient Instructions: Upper Respiratory Infection (ED) Discharge Date/Time: 06/02/20 07:19 Coding Level of Care Code ED Eye Surgeon for Chg Fwd Exam Comprehensive Documented by User: Leeann Diaz MD 06/02/20 06:57 HPI - SOB/Dyspnea General: Chief Complaint: Shortness of Breath/Dyspnea Stated Complaint: difficulty breathing, covid symptoms Time Seen by Provider: 06/02/20 02:41 PFS ED PFSH: Social History (Updated 05/17/20 @ 18:42 by Matthew Velázquez RN) Smoking and tobacco status: current every day smoker cigarettes Packs smoked per day: 0.5 Alcohol intake: never Course Vital Signs: Vital signs: Vital Signs Temperature 98.6 F 06/02/20 07:17 Pulse Rate 110 H 06/02/20 07:17 Respiratory Rate 25 H 06/02/20 07:17 Blood Pressure 106/76 06/02/20 07:17 Pulse Oximetry 93 06/02/20 07:17 MDM - SOB/Dyspnea MDM Narrative: Medical decision making narrative: Patient presents here with shortness of breath does have slight bilateral pneumonias. Patient's pulse ox is currently 94%. She states she does feel improved. Will prescribe her an inhaler along with steroids and antibiotics. I offered admission she states she has to get home to her children. I informed her if she worsens she is to return. Patient's Covid test here is negative. She has no signs of pulmonary embolism. Lab Data: Labs: Lab Results 06/02/20 06/02/20 06/02/20 Range/Units 03:25 03:49 03:49 WBC 12.9 H (4.0-10.0) 10^3/ uL RBC 4.78 (4.1-5.3) 10^6/u L Hgb 12.9 (11.5-15.3) g/dL Hct 40.8 (37.0-47.0) % MCV 85.4 (81-99) fL MCH 27.0 L (28.0-34.0) pg MCHC 31.6 (30.0-36.0) g/dL RDW 13.0 (12.1-15.1) % Plt Count 360 (130-400) 10^3/c mm MPV 9.9 (7.4-10.4) fL Neut % (Auto) 62.7 % Lymph % (Auto) 20.1 % [place] % (Auto) 6.7 % Eos % (Auto) 9.4 % Baso % (Auto) 0.7 % Neut # (Auto) 8.11 H (1.8-7.7) 10^3/u L Lymph # (Auto) 2.6 (0.8-4.8) 10^3/u L [place] # (Auto) 0.9 (0.2-0.9) 10^3/u L Eos # (Auto) 1.2 H (0.0-0.8) 10^3/u L Baso # (Auto) 0.1 (0.0-0.1) 10^3/u L Nucleated RBC % (a uto) 0 % Nucleated RBCs # 0.0 /100WBC D-Dimer 0.42 (0-0.59) ug/mIFE U Sodium (136-145) mmol/L Potassium (3.5-5.1) mmol/L Chloride (98-107) mmol/L Carbon Dioxide (22-29) mmol/L Anion Gap (5-19) BUN (6-20) mg/dL Creatinine (0.5-0.9) mg/dL GFR Calculation (90-130) mL/min Glucose (65-115) mg/dL Calculated Osmolal ity (285-295) mOsm/k g Lactic Acid (0.5-2.2) mmol/L Calcium (8.5-10.5) mg/dL Total Bilirubin (0.15-1.2) mg/dL AST (0-32) U/L ALT (0-33) U/L Alkaline Phosphata se (35-105) IU/L C-Reactive Protein (0.0-4.9) mg/L NT-Pro-B Natriuret Pep (0-125) pg/mL Total Protein (6.6-8.7) g/dL Albumin (3.5-5.2) g/dL Globulin (1.3-4.6) g/dL Procalcitonin (0-0.5) ng/mL Urine Opiates Scre en Negative (Negative) ng/mL Ur Barbiturates Sc reen Negative (Negative) ng/mL Ur Phencyclidine S crn Negative (Negative) ng/mL Ur Amphetamines Sc reen Negative (Negative) ng/mL U Benzodiazepines Scrn Negative (Negative) ng/mL Urine Cocaine Scre en Negative (Negative) ng/mL U Marijuana (THC) Screen Negative (Negative) ng/mL SARS-CoV-2 Ag (Rap id) (Negative) 06/02/20 06/02/20 06/02/20 Range/Units 03:49 03:49 05:45 WBC (4.0-10.0) 10^3/ uL RBC (4.1-5.3) 10^6/u L Hgb (11.5-15.3) g/dL Hct (37.0-47.0) % MCV (81-99) fL MCH (28.0-34.0) pg MCHC (30.0-36.0) g/dL RDW (12.1-15.1) % Plt Count (130-400) 10^3/c mm MPV (7.4-10.4) fL Neut % (Auto) % Lymph % (Auto) % [place] % (Auto) % Eos % (Auto) % Baso % (Auto) % Neut # (Auto) (1.8-7.7) 10^3/u L Lymph # (Auto) (0.8-4.8) 10^3/u L [place] # (Auto) (0.2-0.9) 10^3/u L Eos # (Auto) (0.0-0.8) 10^3/u L Baso # (Auto) (0.0-0.1) 10^3/u L Nucleated RBC % (a uto) % Nucleated RBCs # /100WBC D-Dimer (0-0.59) ug/mIFE U Sodium 141 (136-145) mmol/L Potassium 3.6 (3.5-5.1) mmol/L Chloride 103 (98-107) mmol/L Carbon Dioxide 22 (22-29) mmol/L Anion Gap 19.6 H (5-19) BUN 8 (6-20) mg/dL Creatinine 0.8 (0.5-0.9) mg/dL GFR Calculation 80.7 L (90-130) mL/min Glucose 137 H (65-115) mg/dL Calculated Osmolal ity 292 (285-295) mOsm/k g Lactic Acid 1.1 (0.5-2.2) mmol/L Calcium 9.3 (8.5-10.5) mg/dL Total Bilirubin 0.4 (0.15-1.2) mg/dL AST 13 (0-32) U/L ALT 12 (0-33) U/L Alkaline Phosphata se 111 H (35-105) IU/L C-Reactive Protein 47.0 H (0.0-4.9) mg/L NT-Pro-B Natriuret Pep 87 (0-125) pg/mL Total Protein 7.0 (6.6-8.7) g/dL Albumin 4.0 (3.5-5.2) g/dL Globulin 3.0 (1.3-4.6) g/dL Procalcitonin 0.06 (0-0.5) ng/mL Urine Opiates Scre en (Negative) ng/mL Ur Barbiturates Sc reen (Negative) ng/mL Ur Phencyclidine S crn (Negative) ng/mL Ur Amphetamines Sc reen (Negative) ng/mL U Benzodiazepines Scrn (Negative) ng/mL Urine Cocaine Scre en (Negative) ng/mL U Marijuana (THC) Screen (Negative) ng/mL SARS-CoV-2 Ag (Rap id) Negative (Negative) Imaging Data^: CT Chest: Attestation: I personally reviewed and interpreted this imaging study as follows: Radiologist's impression: [facility] [address] [place] [address] CT Scan Report Signed Patient: Fabi Raymundo Unit #: [id number] : 1985 Age/Sex: 35 / F ADM Date: 06/02/20 Loc: ER Room/Bed: Attending Dr: Ordering Provider/Ordering MD: Wali Prescott DO Date of Service: 06/02/20 Procedure(s): CT angio chest PE protcl [id number] Accession Number(s): [id number] Report Number: [id number] PROCEDURE INFORMATION: Exam: CT Angiography Chest With Contrast Exam date and time: 06/02/2020 4:42 AM Age: 35 years old Clinical indication: Left-sided chest pain TECHNIQUE: Imaging protocol: Computed tomographic angiography of the chest with intravenous contrast. 3D rendering (Not supervised by radiologist): MIP and/or 3D reconstructed images were created by the technologist. Radiation optimization: All CT scans at this facility use at least one of these dose optimization techniques: automated exposure control; mA and/or kV adjustment per patient size (includes targeted exams where dose is matched to clinical indication); or iterative reconstruction. Contrast material: OMNI 350; Contrast volume: 95 ml; Contrast route: INTRAVENOUS (IV); COMPARISON: CR (CHEST, ) 06/02/2020 3:10 AM RADIATION DOSE METRICS: Total DLP (mGy-cm): 1244.9 FINDINGS: Pulmonary arteries: Pulmonary arteries are adequately opacified for evaluation to the central segmental level. More peripheral vessels are obscured. There is no filling defect to suggest embolism. Aorta: The aorta is unremarkable. There is no aneurysm. Lungs: There is mild patchy subpleural predominant geographic ground-glass opacities in the lower lungs bilaterally, greater on the right. There is no consolidation. Pleural space: There is no pleural effusion or pneumothorax. Heart: The heart is unremarkable. There is no pericardial effusion. Mediastinal space: There is a small sliding-type hiatal hernia. Lymph nodes: There is mild bilateral hilar lymph node enlargement. Gallbladder and bile ducts: The gallbladder is absent. Kidneys and ureters: Nonobstructive right renal stones are present. Bones/joints: Bones are unremarkable. Soft tissues: The extrathoracic soft tissues are unremarkable. CT/CT angio chest PE protcl [id number] IMPRESSION: 1. No visible pulmonary embolism. Evaluation is limited to the central segmental level. More peripheral vessels are poorly opacified. 2. Mild bilateral lower lung disease. Commonly reported imaging features of COVID-19 pneumonia are present. Other processes such as influenza pneumonia and organizing pneumonia (as can be seen with drug toxicity and connective tissue disease), can produce a similar imaging pattern. 3. Incidental findings above. Discharge Plan Discharge Patient Disposition: Home Clinical Impression: Community acquired pneumonia Qualifiers: Laterality: unspecified laterality Qualified Code(s): J18.9 - Pneumonia, unspecified organism Condition: Stable Prescriptions: New prednisone 50 mg tablet 50 mg PO DAILY Qty: 5 RF: 0 albuterol sulfate 90 mcg/actuation HFA aerosol inhaler 2 inh INHALATION Q6H PRN (Reason: shortness of breath or wheezing) Qty: 8 RF: 0 doxycycline hyclate 100 mg capsule 100 mg PO BID 7 Days Qty: 14 RF: 0 No Action Medrol (Corwin) 4 mg tablets,dose pack See Rx Instructions .ROUTE .COMPLEX Qty: 21 RF: 0 albuterol sulfate 90 mcg/actuation HFA aerosol inhaler 2 inh INHALATION Q4H PRN (Reason: shortness of breath or wheezing) Qty: 18 RF: 0 Discharge Orders: Discharge Order (Routine); Ordered 06/02/20 Ordered By: Leeann Diaz Referrals: Jesenia Toth MD [Primary Care Provider] - 1-3 days Discharge Diet: Advance as tolerated Discharge Activity: Resume usual activity Patient Instructions: Upper Respiratory Infection (ED) Discharge Date/Time: 06/02/20 07:19 Coding Level of Care Code ED Eye Surgeon for Chg Fwd Exam Comprehensive
[2020-06-02 03:52] LABS: Basophils # 0.1 10^3/uL (0.0-0.1); Basophils % 0.7 %; Eosinophils # 1.2 10^3/uL (0.0-0.8); Eosinophils % 9.4 %; Hematocrit 40.8 % (37.0-47.0); Hemoglobin 12.9 g/dL (11.5-15.3); Lymphocytes # 2.6 10^3/uL (0.8-4.8); Lymphocytes % 20.1 %; Mean Corpuscular HGB Conc 31.6 g/dL (30.0-36.0); Mean Corpuscular Volume 85.4 fL (81-99); Mean Platelet Volume 9.9 fL (7.4-10.4); Monocytes # 0.9 10^3/uL (0.2-0.9); Monocytes % 6.7 %; Neutrophils # 8.11 10^3/uL (1.8-7.7); Neutrophils % 62.7 %; Nucleated Red Blood Cells % 0 %; Platelet Count 360 10^3/cmm (130-400); Red Blood Count 4.78 10^6/uL (4.1-5.3); White Blood Count 12.9 10^3/uL (4.0-10.0)
[2020-06-02] MEDS: dexamethasone 10 mg/mL INJ IVP (03:52)
[2020-06-02] MEDS: LORazepam 2 mg/mL INJ 1 mL IVP (03:52)
[2020-06-02 04:14] LABS: Lactic Sepsis W/Reflex 1.1 mmol/L (0.5-2.2)
[2020-06-02 04:19] LABS: Amphetamines Screen Urine Negative (Negative); Barbiturates Screen Urine Negative (Negative); Benzodiazepines Screen Urine Negative (Negative); Cocaine Screen Urine Negative (Negative); Opiate Screen Urine Negative (Negative); PCP Screen Urine Negative (Negative); THC Screen Urine Negative (Negative)
[2020-06-02 04:32] LABS: D Dimer 0.42 ug/mIFEU (0-0.59)
--- NOTE | 2020-06-02 04:40 | CTR_ITS ---
PROCEDURE INFORMATION: Exam: CT Angiography Chest With Contrast Exam date and time: 06/02/2020 4:42 AM Age: 35 years old Clinical indication: Left-sided chest pain TECHNIQUE: Imaging protocol: Computed tomographic angiography of the chest with intravenous contrast. 3D rendering (Not supervised by radiologist): MIP and/or 3D reconstructed images were created by the technologist. Radiation optimization: All CT scans at this facility use at least one of these dose optimization techniques: automated exposure control; mA and/or kV adjustment per patient size (includes targeted exams where dose is matched to clinical indication); or iterative reconstruction. Contrast material: OMNI 350; Contrast volume: 95 ml; Contrast route: INTRAVENOUS (IV); COMPARISON: CR (CHEST, ) 06/02/2020 3:10 AM RADIATION DOSE METRICS: Total DLP (mGy-cm): 1244.9 FINDINGS: Pulmonary arteries: Pulmonary arteries are adequately opacified for evaluation to the central segmental level. More peripheral vessels are obscured. There is no filling defect to suggest embolism. Aorta: The aorta is unremarkable. There is no aneurysm. Lungs: There is mild patchy subpleural predominant geographic ground-glass opacities in the lower lungs bilaterally, greater on the right. There is no consolidation. Pleural space: There is no pleural effusion or pneumothorax. Heart: The heart is unremarkable. There is no pericardial effusion. Mediastinal space: There is a small sliding-type hiatal hernia. Lymph nodes: There is mild bilateral hilar lymph node enlargement. Gallbladder and bile ducts: The gallbladder is absent. Kidneys and ureters: Nonobstructive right renal stones are present. Bones/joints: Bones are unremarkable. Soft tissues: The extrathoracic soft tissues are unremarkable. CT/CT angio chest PE protcl [id number] IMPRESSION: 1. No visible pulmonary embolism. Evaluation is limited to the central segmental level. More peripheral vessels are poorly opacified. 2. Mild bilateral lower lung disease. Commonly reported imaging features of COVID-19 pneumonia are present. Other processes such as influenza pneumonia and organizing pneumonia (as can be seen with drug toxicity and connective tissue disease), can produce a similar imaging pattern. 3. Incidental findings above. Radiation Dose CTDIVOL = (mGy): DLP = 1244.9 (mGy-cm)
[2020-06-02] MEDS: iohexol 350 mg/mL 100 mL Btl IV (05:03)
[2020-06-02 05:33] LABS: NT Pro B Type Natriuretic Pept 87 pg/mL (0-125); Procalcitonin 0.06 ng/mL (0-0.5)
[2020-06-02 05:47] LABS: Alanine Aminotransferase 12 U/L (0-33); Alkaline Phosphatase 111 IU/L (35-105); Anion Gap 19.6 (5-19); Aspartate Amino Transferase 13 U/L (0-32); Blood Urea Nitrogen 8 mg/dL (6-20); Calcium 9.3 mg/dL (8.5-10.5); Carbon Dioxide 22 mmol/L (22-29); Chloride 103 mmol/L (98-107); Creatinine Clr Calc Pharmacy 109.1773; Glomerular Filtration Rate 80.7 mL/min (90-130); Glucose 137 mg/dL (65-115); Osmolality Calculated 292 mOsm/kg (285-295); Potassium 3.6 mmol/L (3.5-5.1); Sodium 141 mmol/L (136-145); Total Bilirubin 0.4 mg/dL (0.15-1.2)
[2020-06-02 06:40] LABS: SARS Covid-2 Antigen Negative (Negative)
--- NOTE | 2020-06-02 06:50 | PC.NURSE ---
Noted wheezes expiratory in all lung ke[place]. Pt states still feels tight . [place] at bedside has watery and thick sputum. Offered water.
--- NOTE | 2020-06-02 06:53 | PC.NURSE ---
Received report assumed care. No changes noted from report. Sitting up in bed. Offered water. Continue to monitor.
[2020-06-02] MEDS: doxycycline 100 mg Tablet PO (07:11)
== END 2020-06-02 07:19 | disposition home or self-care (01) ==
PROVIDERS: Emergency Medicine; Emergency Provider Emergency Medicine; PCP Internal Medicine
DX: J18.8 Other pneumonia, unspecified organism (principal); F17.210 Nicotine dependence, cigarettes, uncomplicated
CPT/HCPCS: 12345; 71045; 71275; 80053; 80306; 83605; 83880; 84145; 85025; 85378; 86140; 87426; 93005; 94640; 96374; 96375; 99284; J1100; J2060; J3535; Q9967

== ENCOUNTER 2020-06-28 07:46 | Outpatient (CLI) | payer MEDICAID, SELFPAY ==
--- NOTE | 2020-06-28 08:04 | CT_ITS ---
WS: [id number] CT CHEST TECHNIQUE: Noncontrast CT of the chest with coronal and sagittal reformatted images. CLINICAL INFORMATION: PNEUMONIA COMPARISON: June 02, 2020 DLP: 984.[address] scans at [facility] use at least one of these dose optimization techniques: automat ed exposure control; mA and/or kV adjustment per patient size (includes targeted exams where dose is matched to clinical indication); or iterative reconstruction. FINDINGS: Hazy groundglass infiltrates in the bilateral lower lobes right greater than left and right middle lo be improved from the prior examination and nearly resolved. Small amount of residual groundglass infi ltrates in the right lower lobe. No new pulmonary infiltrates. Mild chronic emphysematous changes. No focal pneumonia or pleural fluid. Normal thyroid gland. No mediastinal or hilar lymphadenopathy. Prominent pretracheal lymph node measu ring 9 mm nonspecific but likely reactive. Calcified subcarinal lymph nodes. No axillary lymphadenopa thy. Cholecystectomy clips. Adrenal glands are normal. A few incidental areas of sclerosis in the tho racic spine. No other significant findings. CT/CT chest wo con [id number] IMPRESSION: 1. Improved hazy ground glass infiltrates in both lower lobes compared to prev ious which has nearly resolved. Small amount of residual groundglass infiltrate in right lower lobe. 2. Slightly prominent pretracheal lymph node measuring 9 mm likely reactive. N o mediastinal or hilar lymphadenopathy. 3. Cholecystectomy clips. 4. No other significant findings.
== END 2020-06-28 07:47 | disposition home or self-care (01) ==
LOC: RADWPI 07:50
PROVIDERS: PCP Internal Medicine; Visit Provider Nurse Practitioner Family
DX: J18.9 Pneumonia, unspecified organism (principal)
CPT/HCPCS: 71250

== ENCOUNTER 2020-07-09 18:18 | Inpatient (IN) | payer MEDICAID, SELFPAY ==
[2020-07-09] VITALS (10 sets, daily range): BP systolic 101–122; BP diastolic 37–80; PULSE 110–137; RESP 16–22; TEMP 36.4–37.3; O2SAT 93–97; BMI 39.4
--- NOTE | 2020-07-09 18:23 | XR_ITS ---
WS: [id number] Portable AP upright chest, 07/09/2020 Clinical Data: sob Comparison: Portable chest, 06/02/2020. Findings: No nodules, masses or effusions are seen. The heart is normal. The pulmonary vascularity is not increased. No pneumonia or pneumothorax is seen. There are monitor leads on the chest wall. Ther e are decorative items overlying the breasts. XR/XR chest 1V portable [id number] Impression: Negative chest.
--- NOTE | 2020-07-09 18:25 | ECG_ITS ---
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 Measurements Intervals [place] Rate: 126 P: 75 NH: 128 QRS: 72 QRSD: 88 T: 74 QT: 309 QTc: 449 Interpretive Statements SINUS TACHYCARDIA POSSIBLE RIGHT VENTRICULAR CONDUCTION DELAY [RSR (QR) IN V1/V2] ABNORMAL RHYTHM ECG Compared to ECG 06/02/2020 03:14:12 No significant changes Electronically Signed On 07-09-2020 22:24:29 HARDWARE ASSEMBLER by Lili Castorena M.D. [id number]
--- NOTE | 2020-07-09 18:28 | W.ED.SOB ---
HPI - SOB/Dyspnea General: Chief Complaint: Shortness of Breath/Dyspnea Stated Complaint: RESP DISTRESS, ANXIETY Time Seen by Provider: 07/09/20 18:19 Source: patient and EMS Mode of arrival: EMS Limitations: no limitations History of Present Illness: HPI Narrative: 35-year-old female who has been having shortness of breath over last 3 weeks. She has been on albuterol along with prednisone in the past and states she has had improvement then gets worse again. She states that over the last 2 days she has had increasing shortness of breath and wheezing that got much worse over the last few hours. She denies any cough or fever. Denies any vomiting or diarrhea. Associated symptoms: Deny abdominal pain, chest pain, fever(s), nausea or vomiting Review of Systems Const: Denies: fever(s), chills, body aches or change in appetite Eyes: Denies: blurry vision or eye discomfort ENMT: Denies: throat pain or dental pain Card: Denies: chest pain Resp: Reports: dyspnea and wheezing GI: Denies: abdominal pain, nausea, vomiting or diarrhea : Denies: dysuria Musc: Denies: neck pain or back pain Skin/Breast: Denies: rash Neuro: Denies: headache(s) Psych: Denies: depression Michele/Lymph: Denies: easy bruising All/Imm: Denies: urticaria [facility] ED PFSH: Social History (Updated 05/17/20 @ 18:42 by Matthew Velázquez RN) Smoking and tobacco status: current every day smoker cigarettes Packs smoked per day: 0.5 Alcohol intake: never Female Reproductive History: Date of last menstrual period: 04/28/20 Physical Exam Const: COMMON NORMALS: no acute distress, patient oriented x3 and healthy appearing HENMT: COMMON NORMALS: normocephalic and atraumatic HEAD & SCALP: normocephalic and atraumatic Eye: COMMON NORMALS: Equal, round and reactive pupils present and EOMs intact bilaterally PUPIL: Yes Equal, round and reactive pupils present Neck/C-Spine: COMMON NORMALS: full ROM and supple Chest: COMMONS NORMALS: normal inspection of the chest and normal palpation of entire chest wall Resp: COMMON NORMALS: normal respiratory effort, No retractions, No use of accessory muscles and clear to auscultation bilaterally EFFORT & INSPECTION: Yes tachypneic and Yes respiratory distress AUSCULTATION: clear to auscultation bilaterally and wheezes Cardio: COMMON NORMALS: regular rate, regular rhythm and No murmurs present (Cardio) RATE: regular rate RHYTHM: regular rhythm GI: COMMON NORMALS: Normal to inspection, nondistended, normoactive bowel sounds present, Soft to palpation, non-tender and no masses PALPATION: Yes Soft to palpation Extremity: COMMON NORMALS: normal to inspection and full ROM Neuro: COMMON NORMALS: patient oriented x3, moves all extremities and no focal motor deficits Psych: COMMON NORMALS: mental status grossly normal, Normal thought process present and cooperative THOUGHT PROCESS: Normal thought process present Skin: COMMON NORMALS: no rashes or lesions noted and no wounds GENERAL SKIN EXAM: no rashes or lesions noted Course Vital Signs: Vital signs: Vital Signs Temperature 99.1 F 07/09/20 18:20 Pulse Rate 124 H 07/09/20 19:38 Respiratory Rate 20 H 07/09/20 19:38 Blood Pressure 122/54 07/09/20 19:38 Pulse Oximetry 95 07/09/20 19:38 MDM - SOB/Dyspnea MDM Narrative: Medical decision making narrative: Patient presents here with asthma exacerbation she is requiring 2 L of oxygen here. She is improved after breathing treatments. Patient's D-dimer is negative she has no signs of pulmonary embolism. Spoke to hospitalist will admit for observation Lab Data: Labs: Lab Results 07/09/20 07/09/20 07/09/20 Range/Units 18:52 18:52 18:52 WBC 13.4 H (4.0-10.0) 10^3/ uL RBC 4.87 (4.1-5.3) 10^6/u L Hgb 13.2 (11.5-15.3) g/dL Hct 41.0 (37.0-47.0) % MCV 84.2 (81-99) fL MCH 27.1 L (28.0-34.0) pg MCHC 32.2 (30.0-36.0) g/dL RDW 13.7 (12.1-15.1) % Plt Count 322 (130-400) 10^3/c mm MPV 10.0 (7.4-10.4) fL Neut % (Auto) 56.8 % Lymph % (Auto) 23.1 % [place] % (Auto) 7.1 % Eos % (Auto) 12.0 % Baso % (Auto) 0.6 % Neut # (Auto) 7.61 (1.8-7.7) 10^3/u L Lymph # (Auto) 3.1 (0.8-4.8) 10^3/u L [place] # (Auto) 1.0 H (0.2-0.9) 10^3/u L Eos # (Auto) 1.6 H (0.0-0.8) 10^3/u L Baso # (Auto) 0.1 (0.0-0.1) 10^3/u L Nucleated RBC % (a uto) 0 % Nucleated RBCs # 0.0 /100WBC D-Dimer 0.39 (0-0.59) ug/mIFE U Sodium 137 (136-145) mmol/L Potassium 5.5 H (3.5-5.1) mmol/L Chloride 102 (98-107) mmol/L Carbon Dioxide 27 (22-29) mmol/L Anion Gap 13.5 (5-19) BUN 12 (6-20) mg/dL Creatinine 0.8 (0.5-0.9) mg/dL GFR Calculation 80.7 L (90-130) mL/min Glucose 151 H (65-115) mg/dL Calculated Osmolal ity 287 (285-295) mOsm/k g Calcium 9.2 (8.5-10.5) mg/dL Total Bilirubin 0.4 (0.15-1.2) mg/dL AST 5 (0-32) U/L ALT < 5 (0-33) U/L Alkaline Phosphata se 122 H (35-105) IU/L NT-Pro-B Natriuret Pep 29 (0-125) pg/mL Total Protein 7.2 (6.6-8.7) g/dL Albumin 3.9 (3.5-5.2) g/dL Globulin 3.3 (1.3-4.6) g/dL Imaging Data^: CXR: Attestation: I personally reviewed and interpreted this imaging study as follows: My impression: no acute abnormality EKG Data^: EKG 1: Attestation: I personally reviewed and interpreted this EKG as follows: EKG Interpretation Date: 07/09/20 EKG interpretation time: 18:34 Interpretation: sinus tach hr [address] or t wave abnormalities qrs 88 qtc 384 Discharge Plan Discharge Patient Disposition: Admitted As Inpatient Clinical Impression: Asthma with exacerbation Condition: Stable Coding Level of Care Code ED Boiler Helper for Isaac Fwd Exam Comprehensive
[2020-07-09] MEDS: ipratropium-albuterol 3 mL Neb INHALATION (18:49)
[2020-07-09] MEDS: LORazepam 2 mg/mL INJ 1 mL 1 MG IVP (18:52)
[2020-07-09 19:03] LABS: Basophils # 0.1 10^3/uL (0.0-0.1); Basophils % 0.6 %; Eosinophils # 1.6 10^3/uL (0.0-0.8); Hemoglobin 13.2 g/dL (11.5-15.3); Lymphocytes # 3.1 10^3/uL (0.8-4.8); Lymphocytes % 23.1 %; Mean Corpuscular HGB Conc 32.2 g/dL (30.0-36.0); Mean Corpuscular Hemoglobin 27.1 pg (28.0-34.0); Mean Corpuscular Volume 84.2 fL (81-99); Monocytes % 7.1 %; Neutrophils # 7.61 10^3/uL (1.8-7.7); Neutrophils % 56.8 %; Nucleated Red Blood Cells % 0 %; Platelet Count 322 10^3/cmm (130-400); Red Blood Count 4.87 10^6/uL (4.1-5.3); Red Cell Distribution Width 13.7 % (12.1-15.1); White Blood Count 13.4 10^3/uL (4.0-10.0)
[2020-07-09] MEDS: sodium chloride 0.9% 1,000 ML 999 ML IV (19:10)
[2020-07-09 19:45] LABS: Albumin Level 3.9 g/dL (3.5-5.2); Alkaline Phosphatase 122 IU/L (35-105); Blood Urea Nitrogen 12 mg/dL (6-20); Calcium 9.2 mg/dL (8.5-10.5); Carbon Dioxide 27 mmol/L (22-29); Chloride 102 mmol/L (98-107); Globulin 3.3 g/dL (1.3-4.6); Glomerular Filtration Rate 80.7 mL/min (90-130); Glucose 151 mg/dL (65-115); NT Pro B Type Natriuretic Pept 29 pg/mL (0-125); Osmolality Calculated 287 mOsm/kg (285-295); Sodium 137 mmol/L (136-145); Total Bilirubin 0.4 mg/dL (0.15-1.2); Total Protein 7.2 g/dL (6.6-8.7)
[2020-07-09 19:57] LABS: Alanine Aminotransferase < 5 U/L (0-33); Aspartate Amino Transferase 5 U/L (0-32)
[2020-07-09 19:59] LABS: Anion Gap 13.5 (5-19); Potassium 5.5 mmol/L (3.5-5.1)
[2020-07-09 20:06] LABS: D Dimer 0.39 ug/mIFEU (0-0.59)
[2020-07-09] MEDS: guaiFENesin-dextromethorphan UDC 10 mL PO (20:42)
--- NOTE | 2020-07-09 20:51 | P.HP_ITS ---
Providers/Chief Complaint Admitting Physician: Konstantin Booker MD Primary Care Provider: Jesenia oTth MD Chief Complaint: RESP DISTRESS, ANXIETY History of Present Illness Fabi Raymundo is a 35 year old female with past medical history of asthma, and has positive Covid antibody test, though her prior rapid and PCR testings have been negative, also has significant history of smoking, quit last May. Came in with chief complaint of worsening shortness of breath for the last 3 days, associated with cough, and whitish sputum production.She is also giving history of subjective fever at home, runny nose, headache. She is able to speak in full complete sentences, no prior history of intubation. She has been in the ER multiple times in the last couple of , all her respir atory symptoms started after March this year, she has been tested for Covid multiple times, all her test have been negative, except for reported positive Covid antibody. Has a recent chest CT as well as CTA done in the month of May and June this year, suggestive of Mild bilateral lower lung disease. Commonly reported imaging features of COVID-19 pneumonia where present. Upon arrival in the ER: She was managed for acute asthma exacerbation: She received nebs as well as Solu-Medrol 125 mg i.v one-time dose, which failed to control her shortness of breath as well as wheezing. It was decided to admit as observation for acute asthma exacerbation management. Imaging study in the ER: X-ray chest: No acute infiltrates, no pulmonary vascular congestion. EKG: Sinus tachycardia Pertinent labs: D-dimer negative WBC: 13.4 ,( likely secondary to Solu-Medrol ) Review of Systems Const: Denies: chills, body aches or change in appetite Card: Denies: edema, swelling of feet/ankles, orthopnea or leg pain with exertion GI: Denies: abdominal pain, nausea, vomiting, diarrhea or constipation : Denies: flank pain Musc: Denies: back pain, extremity pain or extremity swelling Neuro: Denies: headache(s), difficulty walking or confusion Medications/Allergies Home Medications Medication Instructions Recorded Confirmed Last Taken Type albuterol sulfate 2 inh INHALATION Q4H PRN #18 gm 03/23/20 07/09/20 07/09/20 Rx albuterol sulfate 2 inh INHALATION Q6H PRN #8 gm 06/02/20 07/09/2020 Rx Fish Oil 1 tab PO DAILY 07/09/20 07/09/20 07/09/20 History diphenhydramine HCl [Cough 12.5 mg PO TID PRN 07/09/20 07/09/20 07/08/20 History Control(diphenhydramine)] Allergies Allergy/AdvReac Type Severity Reaction Status Date / Time No Known Allergies Allergy Verified 06/02/20 02:29 PFSH Acute PFSH: Social History Smoking and tobacco status: current every day smoker cigarettes Packs smoked p er day: 0.5 Alcohol intake: never Female Reproductive History: Date of last menstrual period: 04/28/20 Vitals/I&O/Wt Last Vital Signs Temp 99.1 F 07/09/20 18:20 Pulse 124 H 07/09/20 19:38 Resp 20 H 07/09/20 19:38 BP 122/54 07/09/20 19:38 Pulse Ox 95 07/09/20 19:38 Weight last 48 hrs Weight 104.326 kg Physical Exam Const: COMMON NORMALS: patient oriented x3 HENMT: COMMON NORMALS: normocephalic, atraumatic, hearing grossly normal bilaterally and external ears normal HEAD & SCALP: normocephalic and atraumatic EXTERNAL EAR: Yes external ears normal Eye: COMMON NORMALS: no scleral icterus GENERAL EYE: appearance normal, both eyes and all related structures Chest: COMMONS NORMALS: normal inspection of the chest and normal palpation of entire chest wall CHEST: Yes Symmetrical chest wall rise Resp: COMMON NORMALS: No retractions and No use of accessory muscles EFFORT & INSPECTION: Yes symmetric chest movement OTHER: Minimal expiratory wheezing bilaterally in both lung keene, decreased air entry at bases. No rhonchi no rails Cardio: COMMON NORMALS: regular rate, regular rhythm, S1 normal heart sound present, S2 normal heart sound present, No gallops present (Cardio), No murmurs present (Cardio), No rub (Cardio) and Peripheral pulses 2+ throughout RATE: regular rate RHYTHM: regular rhythm HEART SOUNDS: S1 normal heart sound present and S2 normal heart sound present PERIPHERAL PULSES: Peripheral pulses 2+ throughout GI: COMMON NORMALS: Normal to inspection, nondistended, normoactive bowel sounds present, Soft to palpation, non-tender, No hepatosplenomegaly present and no masses AUSCULTATION: Yes normoactive bowel sounds PALPATION: Yes Soft to palpation and Yes No hepatosplenomegaly present RECTAL EXAM: deferred Extremity: COMMON NORMALS: no clubbing, cyanosis or edema and no pedal edema Neuro: COMMON NORMALS: patient oriented x3 Data : 07/09/20 18:52 07/09/20 18:52 A&P Assessment and plan (1) Asthma exacerbation: Acute asthma exacerbation: Unknown precipitant: Nebs Solu-Medrol 60 mg i.v every 8h Azithromycin 500 mg IV daily (will help with inflammation as well as any p ossible atypical infection) Patient should be evaluated as outpatient for asthma / COPD overlap syndrome. Upon discharge she will need a pulmonary follow-up. Status: Acute (2) Hyperkalemia: Current serum potassium is 5.5. No EKG changes. We will continue to monitor serum potassium. Telemetry Status: Acute (3) Leukocytosis: Likely secondary to steroid use. We will continue azithromycin for now Status: Acute Additional A&P Information DVT prophylax: Lovenox 40 subcu IV daily CODE STATUS: Full code Disposition: Home Attestations Medical Necessity Statement*: Patient is to be in hospital for management of asthma exacerbation. Coding Level of Care Code Acute Special Forces Officer for Isaac Garcia Diagnoses Asthma exacerbation J45.901 Hyperkalemia E87.5 Leukocytosis D72.829
[2020-07-09 21:15] LABS: SARS Covid-2 Antigen Negative (Negative)
[2020-07-09] MEDS: enoxaparin 40 mg/0.4 mL Syringe SUBCUT (22:14)
[2020-07-09] MEDS: azithromycin 500 MG in sodium chloride 0.9% 250 ML 250 MG IV (23:27)
[2020-07-10] VITALS (15 sets, daily range): BP systolic 90–134; BP diastolic 57–81; PULSE 87–137; RESP 16–26; TEMP 36.4–36.9; O2SAT 93–98
[2020-07-10] MEDS: ipratropium-albuterol 3 mL Neb INHALATION ×2 (02:27→08:54)
[2020-07-10 05:32] LABS: Basophils % 0.2 %; Hematocrit 37.4 % (37.0-47.0); Lymphocytes # 0.9 10^3/uL (0.8-4.8); Lymphocytes % 8.9 %; Mean Corpuscular HGB Conc 32.1 g/dL (30.0-36.0); Mean Corpuscular Hemoglobin 27.1 pg (28.0-34.0); Mean Corpuscular Volume 84.4 fL (81-99); Mean Platelet Volume 10.2 fL (7.4-10.4); Monocytes # 0.1 10^3/uL (0.2-0.9); Monocytes % 0.7 %; Neutrophils # 8.87 10^3/uL (1.8-7.7); Neutrophils % 89.5 %; Nucleated Red Blood Cells % 0 %; Platelet Count 292 10^3/cmm (130-400); Red Blood Count 4.43 10^6/uL (4.1-5.3); Red Cell Distribution Width 13.5 % (12.1-15.1); White Blood Count 9.9 10^3/uL (4.0-10.0)
[2020-07-10 05:51] LABS: INR 0.99 (0.8-1.2)
[2020-07-10 06:00] LABS: Estmated Average Glucose 108; Hemoglobin A1C 5.4 % (4.0-6.0)
[2020-07-10 06:08] LABS: Chol HDL Ratio 2.58 mg/dL (0.0-4.40); Cholesterol 188 mg/dL (0-200); HDL Cholesterol 73 mg/dL (60-100); LDL Cholesterol Calculated 102 mg/dL (50-129); Triglycerides 67 mg/dL (0-150)
[2020-07-10 06:10] LABS: Alanine Aminotransferase 17 U/L (0-33); Albumin Level 3.7 g/dL (3.5-5.2); Alkaline Phosphatase 87 IU/L (35-105); Anion Gap 15.3 (5-19); Aspartate Amino Transferase 10 U/L (0-32); Blood Urea Nitrogen 11 mg/dL (6-20); Calcium 9.2 mg/dL (8.5-10.5); Carbon Dioxide 23 mmol/L (22-29); Chloride 104 mmol/L (98-107); Creatinine Clr Calc Pharmacy 129.5017; Glomerular Filtration Rate 94.2 mL/min (90-130); Glucose 168 mg/dL (65-115); Magnesium 1.7 mg/dL (1.7-2.3); Osmolality Calculated 289 mOsm/kg (285-295); Potassium 4.3 mmol/L (3.5-5.1); Sodium 138 mmol/L (136-145); Thyroid Stimulating Hormone 0.27 uIU/mL (0.27-4.20); Total Bilirubin 0.4 mg/dL (0.15-1.2); Total Protein 6.7 g/dL (6.6-8.7)
[2020-07-10] MEDS: benzonatate 100 mg Capsule PO (11:25)
--- NOTE | 2020-07-10 14:47 | PM.PN ---
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, she has been tested for Covid multiple times, she had a positive antibody test more than a month ago, every test since then has been negative, she did have a PCR done on 06/22 which was negative, no fevers, no chills Vitals/I&O/Wt Last Vital Signs Temp 97.5 F L 07/10/20 11:31 Pulse 133 H 07/10/20 14:19 Resp 24 H 07/10/20 14:10 BP 96/57 07/10/20 11:31 Pulse Ox 94 07/10/20 14:10 07/09/20 07/10/20 07/10/20 22:59 06:59 14:59 Intake Total 480 / 480 720 / 720 Balance 480 / 480 720 / 720 Weight last 48 hrs Weight 104.326 kg Physical Exam Const: COMMON NORMALS: no acute distress and patient oriented x3 HENMT: COMMON NORMALS: normocephalic HEAD & SCALP: normocephalic Neck/C-Spine: COMMON NORMALS: no JVD Resp: COMMON NORMALS: normal respiratory effort, No retractions, No use of accessory muscles and clear to auscultation bilaterally AUSCULTATION: clear to auscultation bilaterally Cardio: COMMON NORMALS: no JVD, regular rhythm, S1 normal heart sound present and S2 normal heart sound present RATE: tachycardic RHYTHM: regular rhythm HEART SOUNDS: S1 normal heart sound present and S2 normal heart sound present GI: COMMON NORMALS: Normal to inspection, nondistended, normoactive bowel sounds present, Soft to palpation, non-tender, No hepatosplenomegaly present, no masses and no bruits PALPATION: Yes Soft to palpation and Yes No hepatosplenomegaly present Extremity: COMMON NORMALS: capillary refill normal, no clubbing, cyanosis or edema, no calf tenderness and no pedal edema Neuro: COMMON NORMALS: patient oriented x3 Psych: COMMON NORMALS: mental status grossly normal Data : 07/10/20 05:16 07/10/20 05:16 A&P Assessment and plan (1) Asthma exacerbation: Acute asthma exacerbation: Unknown precipitant: Stop DuoNeb, switch to albuterol, space out albuterol due to sinus tachycardia Solu-Medrol 60 mg i.v every 8h Azithromycin 500 mg IV daily (will help with inflammation as well as any possible atypical infection), QTC 474 ms 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 Small amount of residual groundglass infiltrate in right lower lobe. Patient should be evaluated as outpatient for asthma / COPD overlap syndrome. Upon discharge she will need a pulmonary follow-up. Status: Acute (2) Hyperkalemia: Current serum potassium is 5.5. No EKG changes. We will continue to monitor serum potassium. Telemetry Status: Acute (3) Leukocytosis: Likely secondary to steroid use. We will continue azithromycin for now Status: Acute (4) Sinus tachycardia: -Likely secondary to anxiety, asthma, nebulizer treatments -Switch to albuterol, nebulizer treatments -EKG shows sinus tachycardia, QTC 474 ms -No complaints of chest pain -We will obtain a cardiac echocardiogram Status: Acute Additional A&P Information DVT prophylax: Lovenox 40 subcu IV daily CODE STATUS: Full code Disposition: Home Attestations Medical Necessity Statement*: Patient requires hospitalization for acute asthma exacerbation, sinus tachycardia Coding Level of Care Code Acute Paperhanger Pipe for [facility] Diagnoses Asthma exacerbation J45.901 Hyperkalemia E87.5 Leukocytosis D72.829 Sinus tachycardia R00.0
[2020-07-10] MEDS: acetaminophen 325 mg Tablet 650 MG PO (16:30)
[2020-07-10] MEDS: azithromycin 500 MG in sodium chloride 0.9% 250 ML 250 MG IV (21:15)
[2020-07-10] MEDS: enoxaparin 40 mg/0.4 mL Syringe SUBCUT (21:15)
[2020-07-11] VITALS (9 sets, daily range): BP systolic 110–120; BP diastolic 68–78; PULSE 69–121; RESP 17–19; TEMP 36.8–36.9; O2SAT 94–97
[2020-07-11] MEDS: phenol oral Spray 177 mL 3 SPRAY MUCOUS MEM (04:30)
[2020-07-11 04:57] LABS: Base Excess ABG -0.1 mmol/L (-2.0-2.0); HCO3 ABG 23.6 mmol/L (22-26); PO2 ABG 72.3 mmHg (80.0-100.0)
[2020-07-11 04:58] LABS: Arterial Blood Gas Hematocrit 38.6 % (37-47)
[2020-07-11 05:24] LABS: Basophils % 0.2 %; Hematocrit 38.3 % (37.0-47.0); Hemoglobin 11.7 g/dL (11.5-15.3); Lymphocytes % 9.8 %; Mean Corpuscular HGB Conc 30.5 g/dL (30.0-36.0); Mean Corpuscular Hemoglobin 26.7 pg (28.0-34.0); Mean Corpuscular Volume 87.2 fL (81-99); Mean Platelet Volume 10.6 fL (7.4-10.4); Monocytes # 0.6 10^3/uL (0.2-0.9); Neutrophils # 17.16 10^3/uL (1.8-7.7); Neutrophils % 85.8 %; Nucleated Red Blood Cells % 0 %; Platelet Count 288 10^3/cmm (130-400); Red Blood Count 4.39 10^6/uL (4.1-5.3); Red Cell Distribution Width 14.2 % (12.1-15.1)
[2020-07-11 05:40] LABS: D Dimer <= 0.27 ug/mIFEU (0-0.59)
[2020-07-11 05:54] LABS: C Reactive Protein 17.5 mg/L (0.0-4.9); Magnesium 1.9 mg/dL (1.7-2.3); Phosphorus 3.2 mg/dL (2.5-4.5)
[2020-07-11 05:56] LABS: Alanine Aminotransferase 15 U/L (0-33); Albumin Level 3.8 g/dL (3.5-5.2); Alkaline Phosphatase 79 IU/L (35-105); Anion Gap 16.9 (5-19); Aspartate Amino Transferase 10 U/L (0-32); Blood Urea Nitrogen 12 mg/dL (6-20); Calcium 9.2 mg/dL (8.5-10.5); Carbon Dioxide 20 mmol/L (22-29); Chloride 104 mmol/L (98-107); Creatinine Clr Calc Pharmacy 151.0854; Globulin 2.8 g/dL (1.3-4.6); Glomerular Filtration Rate 112.5 mL/min (90-130); Glucose 150 mg/dL (65-115); Osmolality Calculated 287 mOsm/kg (285-295); Potassium 3.9 mmol/L (3.5-5.1); Sodium 137 mmol/L (136-145); Total Bilirubin 0.2 mg/dL (0.15-1.2); Total Protein 6.6 g/dL (6.6-8.7)
[2020-07-11 05:58] LABS: NT Pro B Type Natriuretic Pept 544 pg/mL (0-125)
--- NOTE | 2020-07-11 06:00 | ECG_ITS ---
[facility] Test Date: 2020-07-11 Pat Name: Fabi Raymundo Department: Room: 277 Gender: Female Route Carrier: : 1985 Requested By: Vasyl Tamayo Order Number: [id number] Mckeon MD: Jason Law M.D. Measurements Intervals [place] Rate: 75 P: 41 NH: 121 QRS: 40 QRSD: 94 T: 6 QT: 364 QTc: 408 Interpretive Statements SINUS RHYTHM WITH SINUS ARRHYTHMIA POSSIBLE RIGHT VENTRICULAR CONDUCTION DELAY [RSR (QR) IN V1/V2] Compared to ECG 07/09/2020 18:34:15 Sinus tachycardia no longer present Electronically Signed On 07-11-2020 17:38:40 RIP TAILER by Jason Law M.D. [email or web address] [email or web address] [facility] biloxiSumo Insight Ltduniversity hospitals [facility].[id number]
--- NOTE | 2020-07-11 06:12 | NUR.SHIFT ---
From what this nurse understands, is that the patient has had a good night other than the patient's throat hurting. The patient has slept part of the night. The patient has been afebrile. The patient was have periods of tachycardia which will drop back down to Sinus rhythm.
--- NOTE | 2020-07-11 07:00 | USCV_ITS ---
Fabi Raymundo Age: 35 Gender: F : 1985 Exam Date: 07/11/2020 07:49 Ordering Phys: Vasyl Tamayo MD Technologist: Manolo Nolan [place] [facility] [place]: TACH BP: 110 / 72 HR: 69 Rhythm: Sinus Technical Quality: Fair MEASUREMENTS (Male / Female) Normal Values 2D ECHO LV Diastolic Diameter PLAX 3.7 cm 4.2 - 5.9 / 3.9 - 5.3 cm LV Systolic Diameter PLAX 2.2 cm IVS Diastolic Thickness 0.9 cm 0.6 - 1.0 / 0.6 - 0.9 cm IVS Systolic Thickness 1.4 cm LVPW Diastolic Thickness 1.1 cm 0.6 - 1.0 / 0.6 - 0.9 cm LVPW Systolic Thickness 1.3 cm LVOT Diameter 2.0 cm LV Ejection Fraction 2D Teich 73.5 % LV Ejection Fraction MOD 2C 69.1 % LV Ejection Fraction 2C AL 68.9 % LA Diameter 3.2 cm LA Width 3.1 cm LA Height 4.0 cm RA Width 3.0 cm RA Height 4.3 cm Aorta at Sinotubular Diameter 1.9 cm M-MODE LV Diastolic Diameter MM 3.9 cm 4.2 - 5.9 / 3.9 - 5.3 cm LV Systolic Diameter MM 2.4 cm LV Ejection Fraction MM Teich 69.4 % IVS Diastolic Thickness MM 0.9 cm 0.6 - 1.0 / 0.6 - 0.9 cm IVS Systolic Thickness MM 1.6 cm LVPW Diastolic Thickness MM 1.0 cm 0.6 - 1.0 / 0.6 - 0.9 cm LVPW Systolic Thickness MM 0.9 cm RV Diastolic Diameter MM 2.0 cm Aortic Annulus Diameter 2.6 cm LA Ao Ratio MM 1.3 MV E Point Septal Separation 0.9 cm DOPPLER AV Peak Velocity 131.0 cm/s LVOT Peak Velocity 121.0 cm/s AV Area Cont Eq vti 3.6 cm squared AV Area Cont Eq pk 2.9 cm squared MV Area PHT 5.0 cm squared Mitral E to A Ratio 1.1 MV E' Velocity 70.5 cm/s Mitral E to MV E' Ratio 8.8 Mitral E to LV E' Lateral Ratio 8.0 Mitral E to LV E' Septal Ratio 9.8 TR Peak Velocity 101.7 cm/s TR Peak Gradient 4.1 mmHg TV Peak E Velocity 89.0 cm/s Right Atrial Pressure 3.0 mmHg Pulmonary Artery Systolic Pressu 7.1 mmHg PV Peak Velocity 106.0 cm/s FINDINGS Left Ventricle Normal left ventricular size and systolic function, EF 67 %. No regional wall motion abnormalities. Right Ventricle The right ventricle is normal in size and function. Right Atrium The right atrium is normal in size. Left Atrium The left atrium is normal in size. Mitral Valve Slightly thickened mitral valve.trace mitral valve regurgitation. Aortic Valve No gross abnormalities noted Tricuspid Valve No gross abnormalities noted Pulmonic Valve No gross abnormalities noted Pericardium Normal pericardium without effusion. Aorta Normal ascending aorta dimension. CONCLUSIONS Normal left ventricular size and systolic function, EF 67 %. No regional wall motion abnormalities. Slightly thickened mitral valve. Trace mitral valve regurgitation. Normal chamber sizes. No significant valvular lesions. There is no pericardial effusion. There are no intracardiac masses. No previous study is available for comparison. Dr Lili Castorena MD FACC (Electronically Signed) Final Date: 11 July 2020 15:01 S
--- NOTE | 2020-07-11 07:00 | XR_ITS ---
WS: [id number] Portable AP upright chest, 07/11/2020 Clinical Data: sob Comparison: Portable chest, 07/09/2020. Findings: No nodules, masses or effusions are seen. The heart is normal. The pulmonary vascularity is not increased. No pneumonia or pneumothorax is seen. Monitor leads on the chest wall XR/XR chest 1V portable [id number] Impression: Negative chest.
[2020-07-11] MEDS: fluticasone nasal spray 16gm Btl 1 SPRAY NASAL (08:55)
--- NOTE | 2020-07-11 09:44 | PC.RESP ---
SMOKING CESSATION INFORMATION SENT TO PATIENT.
--- NOTE | 2020-07-11 10:41 | PC.CHAP ---
Pastoral Care Encounter/Spiritual Assessment Type of Contact [] Declined cocoa bean cleaner visit [] Patient/Family/Request visit [] Outpatient visit [] Follow-up visit [] Physician referral [] Code/Alert [x] Routine visit [] Staff referral [] Actively dying [] Patient sleeping [] Family support [] [] Out of room [] Palliative care [] [x] Receiving care in room [] Pre-surgical visit [] Trauma [] Long length of stay [] ICU visit [] Other: Relational/Emotional Strength [x] Patient feels connected with others/family/visitors/staff [] Distress [] Loneliness/isolation [] Abandonment Spirituality of Patient [x] Person of Krystle [] Attends Jehovah'S Witness of their Krystle [x] Believes in Prayer [] Reads Bible or Sabianism materials [] There are Spiritual issues to be addressed Corporate Real Estate Manager Interventions [x] Prayer [x] Active listening [x] Non-anxious presence [x] Spiritual/emotional support [] Crisis/trauma care [x] Spiritual counseling [] Bereavement support [] Provided bereavement packet [] Provided Bible/devotional materials [] Provided toy/stuffed animal, coloring book to patient or family member [] Provided Communion [] Anointing/Wilson [] Salvation [x] Completed spiritual assessment [] Other: Impact on Illness or Injury [] Angry [] Fearful [] Anxious [] Often cries [] Exhaustion [] Unable to work [] Unable to attend moravian [] Unable to walk/stand [] Unable to read [] Unable to drive [] Unable to eat/drink [] Unable to sleep [] Unable to be with family [] Patient intubated [] Other: Summary Has had Carona virers has had set back in the lungs, blood clots, has a good attitiude, getting ready to home Time spent with patient 10 mins
--- NOTE | 2020-07-11 11:34 | PM.DCS ---
Discharge Providers Date of Admission: 07/10/20 15:55 Date of Discharge: July 11, 2020 Attending Provider at Admission: Konstantin Booker MD Attending Provider at Discharge: Vasyl Tamayo MD Primary Care Provider: Jesenia Toth MD Diagnoses at Discharge Discharge Diagnosis (1) Asthma exacerbation: Status: Acute (2) Hyperkalemia: Status: Acute (3) Leukocytosis: Status: Acute (4) Sinus tachycardia: Status: Acute Reason for Visit Reason for Visit: RESP DISTRESS, ANXIETY Hospital Course Hospital Course This is a 35-year-old female, previous history of smoking, asthma, who presents to [facility] due to complaints of wheezing and shortness of breath Patient was admitted to [facility] for asthma exacerbation, admitted to general medical floors, received Solu-Medrol, nebulizers, oxygen therapy, azithromycin, clinically monitored. Patient clinically improved, discharged on a prednisone taper, albuterol nebulizer, doxycycline, with a follow-up with Dr. Khalil in 1 to 2 weeks Patient has sinus tachycardia throughout her hospital admission, improved after she was taken off duo nebs, onto albuterol, EKG showed sinus tachycardia Patient has quit smoking in mid May, advised to continue to stop smoking If she has any fevers or chills, cough go to the emergency room Physical Exam Const: COMMON NORMALS: no acute distress and patient oriented x3 HENMT: COMMON NORMALS: normocephalic HEAD & SCALP: normocephalic Neck/C-Spine: COMMON NORMALS: no JVD Resp: COMMON NORMALS: normal respiratory effort, No retractions, No use of accessory muscles and clear to auscultation bilaterally AUSCULTATION: clear to auscultation bilaterally Cardio: COMMON NORMALS: no JVD, regular rate, regular rhythm, S1 normal heart sound present and S2 normal heart sound present RATE: regular rate RHYTHM: regular rhythm HEART SOUNDS: S1 normal heart sound present and S2 normal heart sound present GI: COMMON NORMALS: Normal to inspection, nondistended, normoactive bowel sounds present, Soft to palpation, non-tender, No hepatosplenomegaly present, no masses and no bruits PALPATION: Yes Soft to palpation and Yes No hepatosplenomegaly present Extremity: COMMON NORMALS: capillary refill normal, no clubbing, cyanosis or edema, no calf tenderness and no pedal edema Neuro: COMMON NORMALS: patient oriented x3 Psych: COMMON NORMALS: mental status grossly normal Discharge Data Data Completed and Pending: Completed Studies During Hospitalization Category Date Time Status XR chest 1V tawanda ble [id number] Routine Exams 07/11/20 07:00 Completed XR chest 1V tawanda ble [id number] Urgent Exams 07/09/20 18:23 Completed Pending at discharge Category Date Time Status Arterial Blood Ga s W/O Coox AM LABS Lab 07/12/20 04:00 Ordered Arterial Blood Ga s W/O Coox AM LABS Lab 07/13/20 04:00 Ordered C Reactive Protei n AM LABS Lab 07/12/20 04:00 Ordered C Reactive Protei n AM LABS Lab 07/13/20 04:00 Ordered Complete Blood Co unt w/Auto AM LABS Lab 07/12/20 04:00 Ordered Comprehensive Met abolic Panel AM LA BS Lab 07/12/20 04:00 Ordered D Dimer AM LABS Lab 07/12/20 04:00 Ordered D Dimer AM LABS Lab 07/13/20 04:00 Ordered Magnesium AM LABS Lab 07/12/20 04:00 Ordered Magnesium AM LABS Lab 07/13/20 04:00 Ordered NT Pro B Type Clarita riuretic Pept QAM Lab 07/12/20 06:00 Ordered NT Pro B Type Clarita riuretic Pept QAM Lab 07/13/20 06:00 Ordered Phosphorus AM LAB S Lab 07/12/20 04:00 Ordered Phosphorus AM LAB S Lab 07/13/20 04:00 Ordered CV echo complete* [id number] Routine Ultrasound 07/11/20 07:00 Taken Labs from last 24 hours 07/11/20 07/11/20 07/11/20 05:04 05:04 05:04 WBC 20.0 H RBC 4.39 Hgb 11.7 Hct 38.3 MCV 87.2 MCH 26.7 L MCHC 30.5 RDW 14.2 Plt Count 288 MPV 10.6 H Neut % (Auto) 85.8 Lymph % (Auto) 9.8 [place] % (Auto) 3.0 Eos % (Auto) 0.0 Baso % (Auto) 0.2 Neut # (Auto) 17.16 H Lymph # (Auto) 2.0 [place] # (Auto) 0.6 Eos # (Auto) 0.0 Baso # (Auto) 0.0 Nucleated RBC % (a uto) 0 Nucleated RBCs # 0.0 D-Dimer Specimen Type Sample Site ABG pH ABG pCO2 ABG pO2 ABG HCO3 ABG Base Excess Nickolas Test Hematocrit O2 Delivery Device FiO2 Specimen Drawn By Oil Field Worker ID Sodium 137 Potassium 3.9 Chloride 104 Carbon Dioxide 20 L Anion Gap 16.9 BUN 12 Creatinine 0.6 GFR Calculation 112.5 Glucose 150 H Calculated Osmolal ity 287 Calcium 9.2 Phosphorus Magnesium Total Bilirubin 0.2 AST 10 ALT 15 Alkaline Phosphata se 79 C-Reactive Protein NT-Pro-B Natriuret Pep 544 H Total Protein 6.6 Albumin 3.8 Globulin 2.8 07/11/20 07/11/20 07/11/20 05:04 05:04 04:45 WBC RBC Hgb Hct MCV MCH MCHC RDW Plt Count MPV Neut % (Auto) Lymph % (Auto) [place] % (Auto) Eos % (Auto) Baso % (Auto) Neut # (Auto) Lymph # (Auto) [place] # (Auto) Eos # (Auto) Baso # (Auto) Nucleated RBC % (a uto) Nucleated RBCs # D-Dimer <= 0.27 Specimen Type arterial Sample Site left radial ABG pH 7.43 ABG pCO2 35.0 ABG pO2 72.3 L ABG HCO3 23.6 ABG Base Excess -0.1 Nickolas Test positive Hematocrit 38.6 O2 Delivery Device room air FiO2 21.0 Specimen Drawn By harkr Oil Field Worker ID harkr Sodium Potassium Chloride Carbon Dioxide Anion Gap BUN Creatinine GFR Calculation Glucose Calculated Osmolal ity Calcium Phosphorus 3.2 Magnesium 1.9 Total Bilirubin AST ALT Alkaline Phosphata se C-Reactive Protein 17.5 H NT-Pro-B Natriuret Pep Total Protein Albumin Globulin Vitals: Last Vital Signs Temp 98.3 F 07/11/20 07:41 Pulse 85 07/11/20 08:08 Resp 18 07/11/20 08:08 BP 116/68 07/11/20 07:41 Pulse Ox 94 07/11/20 08:08 Discharge Plan Discharge Patient Disposition: Home Condition: Stable Prescriptions: New albuterol sulfate 2.5 mg/0.5 mL Solution For Nebulization 2.5 mg inhalation Q6H.RESPIRATORY PRN (Reason: Shortness Of Breath) Qty: 30 RF: 0 prednisone 10 mg tablet See Rx Instructions .ROUTE .COMPLEX Qty: 53 RF: 0 doxycycline hyclate 100 mg capsule 100 mg PO BID 7 Days Qty: 14 RF: 0 Continued albuterol sulfate 90 mcg/actuation HFA aerosol inhaler 2 inh INHALATION Q4H PRN (Reason: shortness of breath or wheezing) Qty: 18 RF: 0 diphenhydramine HCl 12.5 mg/5 mL Syrup 12.5 mg PO TID PRN (Reason: Cough) RF: 0 Fish Oil 1 tab PO DAILY RF: 0 albuterol sulfate 90 mcg/actuation HFA aerosol inhaler 2 inh INHALATION Q6H PRN (Reason: shortness of breath or wheezing) Qty: 8 RF: 0 Discharge Orders: Discharge Order (Routine); Ordered 07/11/20 Ordered By: Vasyl Tamayo Referrals: Jesenia Toth MD [Primary Care Provider] - 07/18/20 10:00 am Datar,Jaswinder De Jesus MD [Physician] - 08/05/20 10:45 am Discharge Diet: Cardiac Discharge Activity: Resume usual activity Patient Instructions: Asthma Exacerbation - Adult, Doxycycline (By mouth), Albuterol (By breathing), Prednisone (By mouth) Discharge Attestations Time Spent in Discharge Care*: less than 30 min Quality Metrics Clinical Quality Measures During this hospital stay, did patient experience: None Coding Level of Care Code Acute Administrative Coordinator for Isaac Garcia Diagnoses Asthma exacerbation J45.901 Hyperkalemia E87.5 Leukocytosis D72.829 Sinus tachycardia R00.0
[2020-07-11 15:06] LABS: ABG PH Result 7.44 (7.35-7.45); Blood Gas Allen Test Pos; Blood Gas Operator Identificat HARKR; Blood Gas Sample Site Radial, left; Blood Gas Sample Type Arterial; Oxygen Device ROOM AIR
== END 2020-07-11 13:15 | disposition home or self-care (01) | DRG 203 ==
LOC: ER 20:35 → MEDSURG 20:41
PROVIDERS: Admitting Provider Internal Medicine; Emergency Provider Emergency Medicine; PCP Internal Medicine; Visit Provider Family Medicine
DX: J45.901 Unspecified asthma with (acute) exacerbation (principal); R00.0 Tachycardia, unspecified; E87.5 Hyperkalemia; F41.9 Anxiety disorder, unspecified; Z87.891 Personal history of nicotine dependence
CPT/HCPCS: 12345; 36415; 36600; 71045; 80053; 80061; 82803; 83036; 83735; 83880; 84100; 84443; 85025; 85378; 85610; 86140; 87426; 93005; 93306; 94640; 96372; 96375; 99283; G0378; J0456; J1650; J2060; J2930; J7030; J7050; J7611

== ENCOUNTER 2020-08-15 09:16 | Inpatient (IN) | payer BC, MEDICAID, SELFPAY ==
[2020-08-15] VITALS (89 sets, daily range): BP systolic 93–183; BP diastolic 55–117; PULSE 97–167; RESP 18–34; TEMP 36.6–37; O2SAT 83–100; BMI 39.4
--- NOTE | 2020-08-15 09:22 | W.ED.SOB ---
HPI - SOB/Dyspnea General: Chief Complaint: Shortness of Breath/Dyspnea Stated Complaint: RESPIRATORY DISTRESS Time Seen by Provider: 08/15/20 09:22 History of Present Illness: HPI Narrative: 35-year-old female brought in by EMS with difficulty breathing respiratory distress. States she has been having asthma-like symptoms she has been checked multiple times for Covid it was always negative she had a antibody test and told me it was positive. She has not had any abdominal pain she does have some chest discomfort she is breathing rapidly on arrival with a respiratory rate in the upper thirties. MD elicited complaint: shortness of breath, cough and asthma attack Pertinent past history: asthma Onset (ago): hour(s) Timing: constant Severity: severe Exacerbating factors: nothing Relieving factors: nothing Known history of: asthma Associated symptoms: Reports chest congestion, cough, diaphoresis, dizziness, lightheadedness and sense of impending doom; Deny abdominal pain, chest pain, extremity pain, fever(s), hemoptysis, myalgias, nausea, orthopnea, palpitations, paresthesias, polydipsia, polyuria, rash, syncope or vomiting Treatment prior to arrival: oxygen and bronchodilator Review of Systems Const: Reports: diaphoresis; Denies: fever(s) ENMT: Denies: throat pain, ear or mastoid pain, nasal discharge or nasal congestion Card: Reports: lightheadedness; Denies: chest pain, palpitations, syncope or orthopnea Resp: Reports: chest congestion; Denies: hemoptysis GI: Denies: abdominal pain, nausea or vomiting : Denies: flank pain, difficulty voiding, dysuria, urinary frequency or urinary urgency Musc: Denies: extremity pain Skin/Breast: Denies: rash or pruritus Neuro: Reports: dizziness Endo: Denies: polyuria or polydipsia PFSH ED PFSH: Medical History Asthma-COPD overlap syndrome H/O renal calculi H/O: depression Surgical History H/O tubal ligation Hx of cholecystectomy Social History Smoking and tobacco status: former smoker Quit status (tobacco): has quit using tobacco Year quit tobacco: may 2020 [id number] Second hand smoke exposure: Yes Smoking risk assessment/counseling performed?: Yes Alcohol intake: current Alcohol intake frequency: holidays/special occasions only Alcohol type: wine Desire information about alcohol rehabilitation?: No Counseling given: No Caregiver/support person: No Lives independently: Yes Household members: children Housing: House Marital status: service: No Current occupational status: employed Pets and animals: Yes History of recent travel: No Current gender identity: Female Female Reproductive History: Date of last menstrual period: 04/28/20 Physical Exam Const: GENERAL APPEARANCE: cooperative ORIENTATION/CONSCIOUSNESS: Yes awake, Yes oriented to person, Yes oriented to place and Yes oriented to time HENMT: COMMON NORMALS: normocephalic, atraumatic and hearing grossly normal bilaterally HEAD & SCALP: normocephalic and atraumatic Resp: AUSCULTATION: rales, wheezes and diminished lung sounds Cardio: COMMON NORMALS: regular rhythm and No murmurs present (Cardio) RATE: tachycardic RHYTHM: regular rhythm GI: COMMON NORMALS: Soft to palpation and No hepatosplenomegaly present AUSCULTATION: Yes normoactive bowel sounds PALPATION: Yes Soft to palpation, No Tenderness to palpation present (GI), No Guarding due to palpation present (GI) and Yes No hepatosplenomegaly present Extremity: COMMON NORMALS: normal to inspection, capillary refill normal, no clubbing, cyanosis or edema, no calf tenderness and no pedal edema Neuro: SENSORIUM/ORIENTATION: Yes oriented to person, Yes oriented to place and Yes oriented to time Skin: COMMON NORMALS: no rashes or lesions noted GENERAL SKIN EXAM: no rashes or lesions noted Course Vital Signs: Vital signs: Vital Signs Temperature 98.2 F 08/16/20 16:00 Pulse Rate 91 08/16/20 16:30 Respiratory Rate 18 08/16/20 17:39 Blood Pressure 124/66 08/16/20 16:30 Pulse Oximetry 96 08/16/20 16:30 MDM - SOB/Dyspnea MDM Narrative: Medical decision making narrative: Patient initially improved with nebulizers. Prior to arrival she had multiple Covid test. She improved and then began to worsen again we were reinstituted nebulizers made arrangements for admission Dr. Monique gave her more nebulizers including some Xopenex and Atrovent. She improved again for a time and then worsened the markedly worsened to the point where she was in severe respiratory distress and we decided to go ahead and intubate the patient rapid sequence intubation done by Dr. Monique was a fiberoptic laryngoscope. Patient tolerated well Dr. Dickson was consulted in the emergency room for management of her vent settings Dr. Monique will admit patient to the ICU Lab Data: Labs: Lab Results 08/15/20 08/15/20 08/15/20 Range/Units 09:23 09:33 09:33 WBC 10.2 H (4.0-10.0) 10^3/ uL RBC 5.04 (4.1-5.3) 10^6/u L Hgb 13.6 (11.5-15.3) g/dL Hct 42.4 (37.0-47.0) % MCV 84.1 (81-99) fL MCH 27.0 L (28.0-34.0) pg MCHC 32.1 (30.0-36.0) g/dL RDW 14.1 (12.1-15.1) % Plt Count 369 (130-400) 10^3/c mm MPV 9.8 (7.4-10.4) fL Neut % (Auto) 59.7 % Lymph % (Auto) 28.5 % [place] % (Auto) 6.4 % Eos % (Auto) 4.2 % Baso % (Auto) 0.7 % Neut # (Auto) 6.06 (1.8-7.7) 10^3/u L Lymph # (Auto) 2.9 (0.8-4.8) 10^3/u L [place] # (Auto) 0.7 (0.2-0.9) 10^3/u L Eos # (Auto) 0.4 (0.0-0.8) 10^3/u L Baso # (Auto) 0.1 (0.0-0.1) 10^3/u L Nucleated RBC % (a uto) 0 % Nucleated RBCs # 0.0 /100WBC D-Dimer (0-0.59) ug/mIFE U Specimen Type Arterial Sample Site Rr ABG pH 7.31 L (7.35-7.45) ABG pCO2 47.0 H (35-45) mmHg ABG pO2 70.6 L (80.0-100.0) mmH g ABG HCO3 23.4 (22-26) mmol/L ABG O2 Saturation Not Reportable ABG Base Excess -3.3 L (-2.0-2.0) mmol/ L Nickolas Test Pos A-a O2 Gradient Not Reportable Hematocrit 44.0 (37-47) % Hgb O2 Saturation 92.6 L (95-100) % Carboxyhemoglobin 0.7 (0.4-20.1) %THgb Methemoglobin 0.4 (0.4-1.5) % Total Hemoglobin 14.4 (12-16) g/dL Sodium 142.0 137 (131-143) mmol/L Potassium 4.3 4.1 (3.5-5.0) mmol/L Glucose 128.0 H 123 H (70-115) mg/dL Ionized Calcium 1.3 (1.1-1.4) mmol/L O2 Delivery Device Nc O2 Liters/Min 6.0 % FiO2 44.0 % Specimen Drawn By Monro Outreach Assistant ID Monro Chloride 104 (98-107) mmol/L Carbon Dioxide 22 (22-29) mmol/L Anion Gap 15.1 (5-19) BUN 12 (6-20) mg/dL Creatinine 0.8 (0.5-0.9) mg/dL GFR Calculation 80.7 L (90-130) mL/min Estimat Average Gl ucose Hemoglobin A1c (4.0-6.0) % Calculated Osmolal ity 285 (285-295) mOsm/k g Calcium 9.2 (8.5-10.5) mg/dL Magnesium (1.7-2.3) mg/dL Total Bilirubin 0.3 (0.15-1.2) mg/dL AST 21 (0-32) U/L ALT 24 (0-33) U/L Alkaline Phosphata se 104 (35-105) IU/L Creatine Kinase 63 (26-192) U/L Total Protein 7.3 (6.6-8.7) g/dL Albumin 4.2 (3.5-5.2) g/dL Globulin 3.1 (1.3-4.6) g/dL Procalcitonin (0-0.5) ng/mL Urine Color (Yellow) Urine Appearance (CLEAR) Urine pH (5-7) Ur Specific Gravit y (1.005-1.030) Urine Protein (Negative) Urine Glucose (UA) (Normal) Urine Ketones (Negative) Urine Blood (Negative) Urine Nitrate (Negative) Urine Bilirubin (Negative) Urine Urobilinogen (Negative) mg/dL Ur Leukocyte Jenae ase (Negative) Urine Opiates Scre en (Negative) ng/mL Ur Barbiturates Sc reen (Negative) ng/mL Ur Phencyclidine S crn (Negative) ng/mL Ur Amphetamines Sc reen (Negative) ng/mL U Benzodiazepines Scrn (Negative) ng/mL Urine Cocaine Scre en (Negative) ng/mL U Marijuana (THC) Screen (Negative) ng/mL 08/15/20 08/15/20 08/15/20 Range/Units 09:33 09:33 09:33 WBC (4.0-10.0) 10^3/ uL RBC (4.1-5.3) 10^6/u L Hgb (11.5-15.3) g/dL Hct (37.0-47.0) % MCV (81-99) fL MCH (28.0-34.0) pg MCHC (30.0-36.0) g/dL RDW (12.1-15.1) % Plt Count (130-400) 10^3/c mm MPV (7.4-10.4) fL Neut % (Auto) % Lymph % (Auto) % [place] % (Auto) % Eos % (Auto) % Baso % (Auto) % Neut # (Auto) (1.8-7.7) 10^3/u L Lymph # (Auto) (0.8-4.8) 10^3/u L [place] # (Auto) (0.2-0.9) 10^3/u L Eos # (Auto) (0.0-0.8) 10^3/u L Baso # (Auto) (0.0-0.1) 10^3/u L Nucleated RBC % (a uto) % Nucleated RBCs # /100WBC D-Dimer 0.63 H (0-0.59) ug/mIFE U Specimen Type Sample Site ABG pH (7.35-7.45) ABG pCO2 (35-45) mmHg ABG pO2 (80.0-100.0) mmH g ABG HCO3 (22-26) mmol/L ABG O2 Saturation ABG Base Excess (-2.0-2.0) mmol/ L Nickolas Test A-a O2 Gradient Hematocrit (37-47) % Hgb O2 Saturation (95-100) % Carboxyhemoglobin (0.4-20.1) %THgb Methemoglobin (0.4-1.5) % Total Hemoglobin (12-16) g/dL Sodium (131-143) mmol/L Potassium (3.5-5.0) mmol/L Glucose (70-115) mg/dL Ionized Calcium (1.1-1.4) mmol/L O2 Delivery Device O2 Liters/Min % FiO2 % Specimen Drawn By Outreach Assistant ID Chloride (98-107) mmol/L Carbon Dioxide (22-29) mmol/L Anion Gap (5-19) BUN (6-20) mg/dL Creatinine (0.5-0.9) mg/dL GFR Calculation (90-130) mL/min Estimat Average Gl ucose 117 Hemoglobin A1c 5.7 (4.0-6.0) % Calculated Osmolal ity (285-295) mOsm/k g Calcium (8.5-10.5) mg/dL Magnesium (1.7-2.3) mg/dL Total Bilirubin (0.15-1.2) mg/dL AST (0-32) U/L ALT (0-33) U/L Alkaline Phosphata se (35-105) IU/L Creatine Kinase (26-192) U/L Total Protein (6.6-8.7) g/dL Albumin (3.5-5.2) g/dL Globulin (1.3-4.6) g/dL Procalcitonin 0.04 (0-0.5) ng/mL Urine Color (Yellow) Urine Appearance (CLEAR) Urine pH (5-7) Ur Specific Gravit y (1.005-1.030) Urine Protein (Negative) Urine Glucose (UA) (Normal) Urine Ketones (Negative) Urine Blood (Negative) Urine Nitrate (Negative) Urine Bilirubin (Negative) Urine Urobilinogen (Negative) mg/dL Ur Leukocyte Jenae ase (Negative) Urine Opiates Scre en (Negative) ng/mL Ur Barbiturates Sc reen (Negative) ng/mL Ur Phencyclidine S crn (Negative) ng/mL Ur Amphetamines Sc reen (Negative) ng/mL U Benzodiazepines Scrn (Negative) ng/mL Urine Cocaine Scre en (Negative) ng/mL U Marijuana (THC) Screen (Negative) ng/mL 08/15/20 08/15/20 08/15/20 Range/Units 09:50 10:44 10:44 WBC (4.0-10.0) 10^3/ uL RBC (4.1-5.3) 10^6/u L Hgb (11.5-15.3) g/dL Hct (37.0-47.0) % MCV (81-99) fL MCH (28.0-34.0) pg MCHC (30.0-36.0) g/dL RDW (12.1-15.1) % Plt Count (130-400) 10^3/c mm MPV (7.4-10.4) fL Neut % (Auto) % Lymph % (Auto) % [place] % (Auto) % Eos % (Auto) % Baso % (Auto) % Neut # (Auto) (1.8-7.7) 10^3/u L Lymph # (Auto) (0.8-4.8) 10^3/u L [place] # (Auto) (0.2-0.9) 10^3/u L Eos # (Auto) (0.0-0.8) 10^3/u L Baso # (Auto) (0.0-0.1) 10^3/u L Nucleated RBC % (a uto) % Nucleated RBCs # /100WBC D-Dimer (0-0.59) ug/mIFE U Specimen Type Sample Site ABG pH (7.35-7.45) ABG pCO2 (35-45) mmHg ABG pO2 (80.0-100.0) mmH g ABG HCO3 (22-26) mmol/L ABG O2 Saturation ABG Base Excess (-2.0-2.0) mmol/ L Nickolas Test A-a O2 Gradient Hematocrit (37-47) % Hgb O2 Saturation (95-100) % Carboxyhemoglobin (0.4-20.1) %THgb Methemoglobin (0.4-1.5) % Total Hemoglobin (12-16) g/dL Sodium (131-143) mmol/L Potassium (3.5-5.0) mmol/L Glucose (70-115) mg/dL Ionized Calcium (1.1-1.4) mmol/L O2 Delivery Device O2 Liters/Min % FiO2 % Specimen Drawn By Outreach Assistant ID Chloride (98-107) mmol/L Carbon Dioxide (22-29) mmol/L Anion Gap (5-19) BUN (6-20) mg/dL Creatinine (0.5-0.9) mg/dL GFR Calculation (90-130) mL/min Estimat Average Gl ucose Hemoglobin A1c (4.0-6.0) % Calculated Osmolal ity (285-295) mOsm/k g Calcium (8.5-10.5) mg/dL Magnesium 1.7 (1.7-2.3) mg/dL Total Bilirubin (0.15-1.2) mg/dL AST (0-32) U/L ALT (0-33) U/L Alkaline Phosphata se (35-105) IU/L Creatine Kinase (26-192) U/L Total Protein (6.6-8.7) g/dL Albumin (3.5-5.2) g/dL Globulin (1.3-4.6) g/dL Procalcitonin (0-0.5) ng/mL Urine Color Straw (Yellow) Urine Appearance Clear (CLEAR) Urine pH 5.0 (5-7) Ur Specific Gravit y 1.005 (1.005-1.030) Urine Protein Neg (Negative) Urine Glucose (UA) Norm (Normal) Urine Ketones Negative (Negative) Urine Blood Neg (Negative) Urine Nitrate Negative (Negative) Urine Bilirubin Neg (Negative) Urine Urobilinogen Norm (Negative) mg/dL Ur Leukocyte Jenae ase Negative (Negative) Urine Opiates Scre en Negative (Negative) ng/mL Ur Barbiturates Sc reen Negative (Negative) ng/mL Ur Phencyclidine S crn Negative (Negative) ng/mL Ur Amphetamines Sc reen Negative (Negative) ng/mL U Benzodiazepines Scrn Negative (Negative) ng/mL Urine Cocaine Scre en Negative (Negative) ng/mL U Marijuana (THC) Screen Negative (Negative) ng/mL 08/15/20 Range/Units 13:36 WBC (4.0-10.0) 10^3/ uL RBC (4.1-5.3) 10^6/u L Hgb (11.5-15.3) g/dL Hct (37.0-47.0) % MCV (81-99) fL MCH (28.0-34.0) pg MCHC (30.0-36.0) g/dL RDW (12.1-15.1) % Plt Count (130-400) 10^3/c mm MPV (7.4-10.4) fL Neut % (Auto) % Lymph % (Auto) % [place] % (Auto) % Eos % (Auto) % Baso % (Auto) % Neut # (Auto) (1.8-7.7) 10^3/u L Lymph # (Auto) (0.8-4.8) 10^3/u L [place] # (Auto) (0.2-0.9) 10^3/u L Eos # (Auto) (0.0-0.8) 10^3/u L Baso # (Auto) (0.0-0.1) 10^3/u L Nucleated RBC % (a uto) % Nucleated RBCs # /100WBC D-Dimer (0-0.59) ug/mIFE U Specimen Type Arterial Sample Site Radial, right ABG pH 7.33 L (7.35-7.45) ABG pCO2 42.1 (35-45) mmHg ABG pO2 277.0 H (80.0-100.0) mmH g ABG HCO3 22.0 (22-26) mmol/L ABG O2 Saturation > 100.0 ABG Base Excess -3.9 L (-2.0-2.0) mmol/ L Nickolas Test Pos A-a O2 Gradient Not Reportable Hematocrit 44.3 (37-47) % Hgb O2 Saturation 98.9 (95-100) % Carboxyhemoglobin 0.3 L (0.4-20.1) %THgb Methemoglobin 0.9 (0.4-1.5) % Total Hemoglobin 14.5 (12-16) g/dL Sodium 141.0 (131-143) mmol/L Potassium 4.0 (3.5-5.0) mmol/L Glucose 179.0 H (70-115) mg/dL Ionized Calcium 1.2 (1.1-1.4) mmol/L O2 Delivery Device Nrb O2 Liters/Min 15.0 % FiO2 % Specimen Drawn By Outreach Assistant ID Nellie Chloride (98-107) mmol/L Carbon Dioxide (22-29) mmol/L Anion Gap (5-19) BUN (6-20) mg/dL Creatinine (0.5-0.9) mg/dL GFR Calculation (90-130) mL/min Estimat Average Gl ucose Hemoglobin A1c (4.0-6.0) % Calculated Osmolal ity (285-295) mOsm/k g Calcium (8.5-10.5) mg/dL Magnesium (1.7-2.3) mg/dL Total Bilirubin (0.15-1.2) mg/dL AST (0-32) U/L ALT (0-33) U/L Alkaline Phosphata se (35-105) IU/L Creatine Kinase (26-192) U/L Total Protein (6.6-8.7) g/dL Albumin (3.5-5.2) g/dL Globulin (1.3-4.6) g/dL Procalcitonin (0-0.5) ng/mL Urine Color (Yellow) Urine Appearance (CLEAR) Urine pH (5-7) Ur Specific Gravit y (1.005-1.030) Urine Protein (Negative) Urine Glucose (UA) (Normal) Urine Ketones (Negative) Urine Blood (Negative) Urine Nitrate (Negative) Urine Bilirubin (Negative) Urine Urobilinogen (Negative) mg/dL Ur Leukocyte Jenae ase (Negative) Urine Opiates Scre en (Negative) ng/mL Ur Barbiturates Sc reen (Negative) ng/mL Ur Phencyclidine S crn (Negative) ng/mL Ur Amphetamines Sc reen (Negative) ng/mL U Benzodiazepines Scrn (Negative) ng/mL Urine Cocaine Scre en (Negative) ng/mL U Marijuana (THC) Screen (Negative) ng/mL Discharge Plan Discharge Patient Disposition: Admitted As Inpatient Admit Provider: Jeffy Crawford Clinical Impression: Asthma-COPD overlap syndrome, Respiratory failure with hypercapnia Condition: Stable Coding Level of Care Code ED Supervisor [employer] for Leslyeg Radha
--- NOTE | 2020-08-15 09:23 | XR_ITS ---
WS: [id number] Portable AP upright chest, 08/15/2020 Clinical Data: dyspnea/cough Comparison: Portable chest, 07/11/2020. Findings: No nodules, masses or effusions are seen. The heart is normal. The pulmonary vascularity is not increased. No pneumonia or pneumothorax is seen. There is a monitor lead on the right chest wall . XR/XR chest 1V portable [id number] Impression: Negative chest.
[2020-08-15] MEDS: dexamethasone 4 mg/mL INJ 10 MG IVP (09:38)
[2020-08-15 09:44] LABS: Basophils # 0.1 10^3/uL (0.0-0.1); Basophils % 0.7 %; Eosinophils # 0.4 10^3/uL (0.0-0.8); Eosinophils % 4.2 %; Hematocrit 42.4 % (37.0-47.0); Hemoglobin 13.6 g/dL (11.5-15.3); Lymphocytes # 2.9 10^3/uL (0.8-4.8); Lymphocytes % 28.5 %; Mean Corpuscular HGB Conc 32.1 g/dL (30.0-36.0); Mean Corpuscular Volume 84.1 fL (81-99); Mean Platelet Volume 9.8 fL (7.4-10.4); Monocytes # 0.7 10^3/uL (0.2-0.9); Monocytes % 6.4 %; Neutrophils # 6.06 10^3/uL (1.8-7.7); Neutrophils % 59.7 %; Nucleated Red Blood Cells % 0 %; Platelet Count 369 10^3/cmm (130-400); Red Blood Count 5.04 10^6/uL (4.1-5.3); Red Cell Distribution Width 14.1 % (12.1-15.1); White Blood Count 10.2 10^3/uL (4.0-10.0)
[2020-08-15] MEDS: ipratropium-albuterol 3 mL Neb 6 ML INHALATION (10:05)
[2020-08-15 10:09] LABS: Alanine Aminotransferase 24 U/L (0-33); Albumin Level 4.2 g/dL (3.5-5.2); Alkaline Phosphatase 104 IU/L (35-105); Anion Gap 15.1 (5-19); Aspartate Amino Transferase 21 U/L (0-32); Blood Urea Nitrogen 12 mg/dL (6-20); Calcium 9.2 mg/dL (8.5-10.5); Carbon Dioxide 22 mmol/L (22-29); Chloride 104 mmol/L (98-107); Creatine Phosphokinase 63 U/L (26-192); Globulin 3.1 g/dL (1.3-4.6); Glomerular Filtration Rate 80.7 mL/min (90-130); Glucose 123 mg/dL (65-115); Osmolality Calculated 285 mOsm/kg (285-295); Potassium 4.1 mmol/L (3.5-5.1); Sodium 137 mmol/L (136-145); Total Bilirubin 0.3 mg/dL (0.15-1.2); Total Protein 7.3 g/dL (6.6-8.7)
[2020-08-15 10:59] LABS: ABG PH Result 7.31 (7.35-7.45); Base Excess ABG -3.3 mmol/L (-2.0-2.0); HCO3 ABG 23.4 mmol/L (22-26); PO2 ABG 70.6 mmHg (80.0-100.0); Potassium Level - ABG 4.3 mmol/L (3.5-5.0)
[2020-08-15 11:00] LABS: Blood Gas Allen Test POS; Blood Gas Drawn By MONRO; Blood Gas Operator Identificat MONRO; Blood Gas Sample Site RR; Blood Gas Sample Type ARTERIAL; Ionized Calcium Level - ABG 1.3 mmol/L (1.1-1.4); Oxygen Device NC; Total Hemoglobin 14.4 g/dL (12-16)
[2020-08-15 11:01] LABS: Carboxyhemoglobin 0.7 %THgb (0.4-20.1); HGB O2 Sat 92.6 % (95-100); Methemoglobin 0.4 % (0.4-1.5)
[2020-08-15 11:07] LABS: Add Urine Microscopic? NO
[2020-08-15 11:11] LABS: Magnesium 1.7 mg/dL (1.7-2.3)
--- NOTE | 2020-08-15 11:27 | PC.PHAR ---
pt states she only takes her paxil twice a week even tho it was written for 10mg po daily-pt states she has been using her albuterol for the nebulizer every 3-4 hours-pt states she has been using her proair inhaler every 2-4 hours -deport pharmacy states they have a rx ready to nut picker for singulair that was filled on 08/14/2019
[2020-08-15 11:31] LABS: Bilirubin Urine Neg (Negative); Blood Urine Neg (Negative); Glucose Urine UA Norm (Normal); Ketones Urine Negative (Negative); Leukocyte Esterase Urine Negative (Negative); Nitrate Urine Negative (Negative); Protein Urine Neg (Negative); Specific Gravity, Urine 1.005 (1.005-1.030); Urine Appearance Clear (CLEAR); Urine Color Straw (Yellow); Urobilinogen Urine Norm (Negative)
--- NOTE | 2020-08-15 11:40 | P.HP_ITS ---
Providers/Chief Complaint Chief Complaint: RESPIRATORY DISTRESS History of Present Illness Fabi Raymundo is a 35 year old female presenting to the emergency department with wheezing. She reports she has been using her inhaler, albuterol perhaps every 4 hours. She has stopped her Advair as she thought she was doing better. She was recently admitted to the hospital, and discharged on July 11. An office visit with pulmonary occurred on August 05 and reported her wheezing was better at that time. She denies any fever. She has had cough occasionally productive but no hemoptysis. No significant chest pain but has had chest tightness. Wheezing much worse the last 24 hours. Does not know of any particular triggers. Has had some reflux for a while. Review of Systems General: Reports: 10 or more systems reviewed and unremarkable except in HPI and below Const: Denies: fever(s) Eyes: Denies: change in vision ENMT: Denies: throat pain Card: Denies: chest pain Resp: Reports: dyspnea, productive cough and wheezing GI: Denies: abdominal pain : Denies: flank pain Musc: Denies: neck pain Skin/Breast: Denies: rash Neuro: Denies: headache(s) Psych: Reports: anxiety Endo: Denies: polyuria Michele/Lymph: Denies: easy bruising All/Imm: Denies: urticaria Medications/Allergies Home Medications Medication Instructions Recorded Confirmed Last Taken Type albuterol sulfate 2 inh INHALATION Q6H PRN #8 gm 06/02/20 08/15/20 07/09/20 Rx albuterol sulfate 2.5 mg INHALATION Q6H.RESPIRATORY 07/11/20 08/15/20 Unknown Rx PRN #30 ea paroxetine HCl 10 mg tablet 10 mg PO DAILY PRN 08/05/20 08/15/20 Unknown History Childrens Robitussin Syrup 20 ml PO PRN 08/15/20 08/15/20 08/14/20 History PNV cmb#95-ferrous fumarate-FA 1 tab PO DAILY@08/15/20 08/15/20 Unknown History [] hydroxyzine HCl 12.5 - 25 mg PO TID PRN 08/15/20 08/15/20 Unknown History montelukast [Singulair] 10 mg PO DAILY 08/15/20 08/15/20 Unknown History salmeterol [Serevent Diskus] 1 inh INHALATION BID 08/15/20 08/15/20 Unknown History Allergies Allergy/AdvReac Type Severity Reaction Status Date / Time No Known Allergies Allergy Verified 08/15/20 11:27 PFSH Acute PFSH: Medical History (Updated 08/15/20 @ 12:15 by Jeffy Crawford MD) Asthma-COPD overlap syndrome H/O renal calculi H/O: depression Surgical History (Updated 08/15/20 @ 12:15 by Jeffy Crawford MD) H/O tubal ligation Hx of cholecystectomy Social History Smoking and tobacco status: former smoker Quit status (tobacco): has quit using tobacco Year quit tobacco: may 2020 [id number] Second hand smoke exposure: Yes Smoking risk assessment/counseling performed?: Yes Alcohol intake: current Alcohol intake frequency: holidays/special occasions only Alcohol type: wine Desire information about alcohol rehabilitation?: No Counseling given: No Caregiver/support person: No Lives independently: Yes Household members: children Housing: House Marital status: service: No Current occupational status: employed Pets and animals: Yes History of recent travel: No Current gender identity: Female Female Reproductive History: Date of last menstrual period: 04/28/20 Supplemental PFSH Information: Denies any significant surgeries. Does report family history of asthma. Vitals/I&O/Wt Last Vital Signs Temp 97.9 F 08/15/20 09:17 Pulse 158 H 08/15/20 10:20 Resp 34 H 08/15/20 10:06 BP 131/84 08/15/20 09:40 Pulse Ox 98 08/15/20 10:20 Weight last 48 hrs Weight 104.326 kg Physical Exam Narrative: EXAM NARRATIVE: General exam is a white female on BiPAP who appears more comfortable with her breathing HEENT: Pupils equally round. Oropharynx clear. Neck is supple no lymphadenopathy or thyromegaly Cardiovascular tachycardic, no murmur Lungs bilateral expiratory wheezes Abdomen is soft with positive bowel sounds. No obvious organomegaly was deferred Extremities no cyanosis clubbing or edema, cap refill brisk Skin no rash Neuro no obvious focal deficits. Data : 08/15/20 09:33 08/15/20 09:33 Other data: Previous echocardiogram July demonstrated preserved EF, largely normal. CTA May demonstrated no pulmonary embolism, some bilateral lower lobe lung disease with question of Covid Covid antibody test positive June. Has not had a documented PCR or rapid that is positive. Chest x-ray question right middle lobe infiltrate by me. Radiology has read as normal. ABG with pH is 7.3, PCO2 47, PO2 71 LFTs normal Urinalysis and urine drug screen negative A&P Assessment and plan (1) Asthma-COPD overlap syndrome: Acute asthma exacerbation. Solu-Medrol 60 mg IV every 6 hours As she has had tachycardia with albuterol will use Xopenex and Atrovent scheduled Oxygen as needed Initiate budesonide inhaled with intention on conversion to Advair on discharge. It appears she was just receiving Serevent. Add Singulair, as well as loratadine she has already stopped smoking Secondary to review of systems with reflux add Protonix Zithromax 500mg a day Status: Acute (2) Respiratory failure: Placed on BiPAP Wean off as tolerated Status: Acute (3) Tachycardia: Change albuterol to Xopenex Status: Acute (4) Hyperglycemia: Check A1c Status: Acute Additional A&P Information Reflux. Initiate Protonix Anxiety. Ativan as needed. Full code Lovenox for DVT prophylaxis Attestations Medical Necessity Statement*: Will need greater than 2 midnight stay for evaluation and treatment of asthma. Time Spent in Patient Care: Greater than 35 minutes Coding Level of Care Code Acute Nursing Informatics Analyst for Isaac Fwd Diagnoses Asthma-COPD overlap syndrome J44.9 Respiratory failure J96.90 Tachycardia R00.0 Hyperglycemia R73.9
[2020-08-15 11:48] LABS: Amphetamines Screen Urine Negative (Negative); Barbiturates Screen Urine Negative (Negative); Benzodiazepines Screen Urine Negative (Negative); Cocaine Screen Urine Negative (Negative); Opiate Screen Urine Negative (Negative); PCP Screen Urine Negative (Negative); THC Screen Urine Negative (Negative)
[2020-08-15] MEDS: enoxaparin 40 mg/0.4 mL Syringe SUBCUT (12:50)
[2020-08-15] MEDS: ondansetron 2 mg/ML SDV 2 mL 4 MG IVP (13:23)
[2020-08-15] MEDS: levalbuterol 1.25 mg/3 mL Neb INHALATION ×5 (13:31→21:45)
[2020-08-15] MEDS: morphine 4 mg/mL SDV 1 mL IVP (13:31)
[2020-08-15 13:49] LABS: ABG PCO2 42.1 mmHg (35-45); ABG PH Result 7.33 (7.35-7.45); Arterial Blood Gas Hematocrit 44.3 % (37-47); Base Excess ABG -3.9 mmol/L (-2.0-2.0); Blood Gas Allen Test Pos; Blood Gas Operator Identificat MONRO; Blood Gas Sample Site Radial, right; Blood Gas Sample Type Arterial; Carboxyhemoglobin 0.3 %THgb (0.4-20.1); HGB O2 Sat 98.9 % (95-100); Ionized Calcium Level - ABG 1.2 mmol/L (1.1-1.4); Methemoglobin 0.9 % (0.4-1.5); Oxygen Device NRB; Oxygen Saturation ABG > 100.0; Total Hemoglobin 14.5 g/dL (12-16)
[2020-08-15] MEDS: magnesium sulfate premix 2 GM/50 ML PIGGYBACK IV ×2 (14:01→17:10)
[2020-08-15] MEDS: succinylcholine 20 mg/mL SDV 10mL 100 MG IVP (15:15)
--- NOTE | 2020-08-15 15:21 | XR_ITS ---
WS: [id number] Portable AP upright chest, 08/15/2020, 1534 hours Clinical Data: dyspnea/cough Comparison: Portable chest, today, 0946 hours. Findings: The endotracheal tube is above the vanessa. The nasogastric tube appears to end in the stoma ch. There is patchy opacity over the surface of the right diaphragm. The left lung is clear. No nodul es, masses or effusions are seen. The heart is normal. Monitor leads are on the chest wall. The pulmo nary vascularity is not increased. No pneumothorax is seen. XR/XR chest 1V portable [id number] Impression: 1. Satisfactory placement of endotracheal tube and nasogastric tube. 2. Development of patchy right lower lobe opacity which may represent acute pne umonia.
[2020-08-15 15:37] LABS: D Dimer 0.63 ug/mIFEU (0-0.59)
[2020-08-15] MEDS: propofol 1,000 MG/100 ML INJ 16.1 MG (15:46)
[2020-08-15] MEDS: vecuronium 10 mg SDV IVP (15:50)
--- NOTE | 2020-08-15 15:56 | PM.EVENT ---
Event Note Event Note: Patient tiring out. Emergency department physician noted this and she needed emergent intubation secondary to increased work of breathing.. She was alert enough to give consent. She received etomidate, succinylcholine. She was elevated with glide scope, with direct visualization of the tube going through the cords. 8 endotracheal tube. Breath sounds noted bilaterally with good color change. Chest x-ray shows adequate placement of OG and endotracheal tube.
[2020-08-15] MEDS: azithromycin 500 MG in sodium chloride 0.9% 250 ML 250 MG IV (16:00)
[2020-08-15] MEDS: ipratropium 0.5 mg/2.5 mL Neb INHALATION ×3 (16:25→21:45)
--- NOTE | 2020-08-15 16:30 | ECG_ITS ---
[facility] Test Date: 2020-08-15 Pat Name: Fabi Raymundo Department: Room: [facility] Gender: Female Sr. Director Product Management: : 1985 Requested By: Jeffy Clayton Order Number: [id number] Linda MD: Kandy Benitez M.D. Measurements Intervals [place] Rate: 141 P: 66 AL: 115 QRS: 65 QRSD: 82 T: 45 QT: 305 QTc: 468 Interpretive Statements SINUS TACHYCARDIA WITH SHORT AL INTERVAL POSSIBLE RIGHT VENTRICULAR CONDUCTION DELAY [RSR (QR) IN V1/V2] Compared to ECG 07/11/2020 06:21:04 Sinus rhythm no longer present Sinus arrhythmia no longer present Electronically Signed On 08-16-2020 13:55:30 BRAND AMBASSADOR PROMOTIONAL MODEL by Kandy Benitez M.D. [id number]
[2020-08-15 16:54] LABS: Alveolar-Arterial Oxygen Gradi 14.9 mmHg (5-10); Arterial Blood Gas Hematocrit 45.2 % (37-47); Base Excess ABG -6.4 mmol/L (-2.0-2.0); Blood Gas Allen Test Pos; Blood Gas Operator Identificat MONRO; Blood Gas Sample Site Radial, right; Blood Gas Sample Type Arterial; Blood Gas Tidal Volume 0.35; Carboxyhemoglobin 0.3 %THgb (0.4-20.1); HGB O2 Sat 99.8 % (95-100); Ionized Calcium Level - ABG 1.3 mmol/L (1.1-1.4); Methemoglobin 0.1 % (0.4-1.5); Oxygen Device VENT; Oxygen Saturation ABG > 100.0; Total Hemoglobin 14.7 g/dL (12-16)
[2020-08-15 16:55] LABS: Procalcitonin 0.04 ng/mL (0-0.5)
[2020-08-15] MEDS: piperacillin-tazobactam 3.375 GM in sodium chloride 0.9% (plus) 50 ML IV (17:01)
--- NOTE | 2020-08-15 17:14 | PC.NURSE ---
Late entry for 15:00. PT NOTED TO BE IN RESP DISTRESS, ANXIOUS, O2 SATS NOTED TO BE 88%. DR HARDEN AND DR BARRAZA AT BEDSIDE. ABG'S OBTAINED. THE DECISION TO INTUBATE WAS MADE BY DR HARDEN. ROOM PREPARED FOR INTUBATION. PER VO DR HARDEN SUCCINYLCHOLINE 100MG ORDERED WITH ETOMIDATE 30MG ORDERED. MEDS GIVEN ORDERED AFTER REASSURANCE GIVEN TO PT. PT INTUBATED WITH A 8.0 ET TUBE, 23CM @ THE LIP. TOLERATED WELL. SECOND IV ACCESS OBTAINED. SEDATION WITH PROPOFOL AND FENTANYL GTT ORDERED FOR TUBE TOLERANCE. DR BARRAZA REMAINS AT BEDSIDE. VECIRONIUM GIVEN ORDERED. PT'S MOTHER CALLED TO ER FOR UPDATE, DR BARRAZA SPOKE WITH MOTHER OF PT. VITAL SIGNS PER MONITOR.
--- NOTE | 2020-08-15 17:32 | XR_ITS ---
WS: [id number] Portable AP upright chest, 08/15/2020, 1736 hours Clinical Data: resp failure Comparison: Portable chest, yesterday, 1534 hours. Findings: The patchy opacity of the right lower lobe remains the same. The endotracheal tube and naso gastric tube are in good position. The left lung is clear. No nodules, masses or effusions are seen. The heart is normal. The pulmonary vascularity is not increased. No pneumothorax is seen. XR/XR chest 1V portable [id number] Impression: 1. No change in endotracheal tube and nasogastric tube. 2. No change in patchy opacity in right lower lobe which may represent acute pn eumonia.
[2020-08-15] MEDS: rocuronium 10 mg/mL INJ 5mL 65 MG IV (17:33)
[2020-08-15 17:57] LABS: ABG PCO2 78.6 mmHg (35-45); ABG PH Result 7.11 (7.35-7.45)
[2020-08-15] MEDS: propofol 1,000 MG/100 ML INJ 75 MG (18:00)
--- NOTE | 2020-08-15 19:01 | PC.NURSE ---
report received from JARED Manuel and care transferred to JARED Khan
[2020-08-15 19:06] LABS: ABG PH Result 7.18 (7.35-7.45); Alveolar-Arterial Oxygen Gradi 31.7 mmHg (5-10); Arterial Blood Gas Hematocrit 43.8 % (37-47); Base Excess ABG -5.1 mmol/L (-2.0-2.0); Blood Gas Allen Test Pos; Blood Gas Operator Identificat CAK; Blood Gas Sample Site Radial, left; Blood Gas Sample Type Arterial; Blood Gas Tidal Volume 0.38; Carboxyhemoglobin 0.7 %THgb (0.4-20.1); HCO3 ABG 24.7 mmol/L (22-26); HGB O2 Sat 91.7 % (95-100); Ionized Calcium Level - ABG 1.2 mmol/L (1.1-1.4); Methemoglobin 0.8 % (0.4-1.5); Oxygen Device VENT; Oxygen Saturation ABG 93.1; PO2 ABG 71.2 mmHg (80.0-100.0); Potassium Level - ABG 5.2 mmol/L (3.5-5.0); Total Hemoglobin 14.3 g/dL (12-16)
[2020-08-15 19:07] LABS: ABG PCO2 66.4 mmHg (35-45)
[2020-08-15] MEDS: propofol 1,000 MG/100 ML INJ 46.9 MG IV (20:13)
--- NOTE | 2020-08-15 20:50 | PC.NURSE ---
375ml out in strickland catheter.
[2020-08-15 22:24] LABS: Base Excess ABG -3.8 mmol/L (-2.0-2.0); Blood Gas Sample Site Brachial, left; Blood Gas Sample Type Arterial; Oxygen Device VENT
[2020-08-15 22:37] LABS: Estmated Average Glucose 117; Hemoglobin A1C 5.7 % (4.0-6.0)
[2020-08-15 22:44] LABS: ABG PCO2 45.5 mmHg (35-45); ABG PH Result 7.31 (7.35-7.45); Arterial Blood Gas Hematocrit 40.4 % (37-47); Blood Gas Allen Test Pos; HCO3 ABG 22.6 mmol/L (22-26)
[2020-08-15] MEDS: propofol 1,000 MG/100 ML INJ 31.3 MG IV (22:45)
--- NOTE | 2020-08-15 23:05 | P.CONIM_ITS ---
Providers/Reason For Consult Consulting Physican/Specialty*: Jaswinder Chauhan MD/Pulmonary critical care Reason for Consult*: And management in patient with asthma exacerbation Requesting Physcian: Jeffy Crawford MD Attending Physician: Jeffy Crawford MD History of Present Illness History of Present Illness Fabi Raymundo is a 35 year old female previous history of smoking, asthma, who presents to [facility] ER with wheezing and shortness of breath. She was recently admitted to the hospital, and discharged on July 11. Later she followed up in pulmonary clinic and reported she was asymptomatic with no wheezing or shortness of breath and mMRC 0 and so stopped taking Advair and albuterol that was given during hospitalization. Also reported her mother had asthma but she never had any symptoms of asthma except lately she was having shortness of breath when exposed to strong chemicals. She was tested -5 times for COVID-19 but her antibodies were positive and used oral steroids for 1 month during which the blood work showed high eosinophils. Had a history of significant smoking, smoked 1.5 PPD X 23 years and quit May 2020. Her work- up for COPD/asthma is pending and today she is seen in ER. . As per admitting H&P patient denied any fever. She has had cough occasionally productive but denied hemoptysis, chest pain reported chest tightness. Wheezing much worse the last 24 hours. Does not know of any particular triggers. While in ED patient received multiple doses of albuterol/Atrovent and later became tachycardic and received Xopenex and 2 doses of magnesium sulfate and IV steroids. Eventually got intubated and because of extreme bronchospasm. Pulmonary critical care consulted for vent management severe asthma exacerbation. Patient is intubated and sedated in the ED, with severe bronchoconstriction and wheezing, tachycardic and difficulty adequate tidal volumes. Review of Systems General: Reports: ROS unobtainable due to endotracheal tube, ROS unobtainable due to medical condition and ROS unobtainable due to mental status Meds/Allergies Home Medications and Allergies Home Medications Medication Instructions Recorded Confirmed Last Taken Type albuterol sulfate 2 inh INHALATION Q6H PRN #8 gm 06/02/20 08/15/20 07/09/20 Rx albuterol sulfate 2.5 mg INHALATION Q6H.RESPIRATORY 07/11/20 08/15/20 Unknown Rx PRN #30 ea paroxetine HCl 10 mg tablet 10 mg PO DAILY PRN 08/05/20 08/15/20 Unknown History Childrens Robitussin Syrup 20 ml PO PRN 08/15/20 08/15/20 08/14/20 History PNV cmb#95-ferrous fumarate-FA 1 tab PO DAILY@07 08/15/20 08/15/20 Unknown History [] hydroxyzine HCl 12.5 - 25 mg PO TID PRN 08/15/20 08/15/20 Unknown History montelukast [Singulair] 10 mg PO DAILY 08/15/20 08/15/20 Unknown History salmeterol [Serevent Diskus] 1 inh INHALATION BID 08/15/20 08/15/20 Unknown History Allergies Allergy/AdvReac Type Severity Reaction Status Date / Time No Known Allergies Allergy Verified 08/15/20 11:27 Current Medications Current Medications Generic Name Dose Route Start Last Admin Trade Name Freq PRN Reason Stop Dose Admin Enoxaparin Sodium 40 mg 08/15/20 13:00 08/15/20 12:50 Enoxaparin 40 Mg/0.4 Ml Syringe SUBCUT 40 mg Q24H HEATHER Administration Fentanyl 1,000 mcg/ Sodium 100 mls @ 0 mls/hr 08/15/20 16:00 08/15/20 21:25 Chloride IV 125 mcg/hr .Q0M HEATHER 12.5 mls/hr Titration Protocol Per Protocol Piperacillin Sod/Tazobactam 50 mls @ 12.5 mls/hr 08/15/20 16:30 08/15/20 21:01 Sod 3.375 gm/ Sodium Chloride IV Infused Q8H HEATHER Infusion Protocol Azithromycin 500 mg/ Sodium 250 mls @ 250 mls/hr 08/15/20 16:00 08/15/20 16:00 Chloride IV 250 mls/hr Q24H HEATHER Administration Protocol Propofol 1,000 mg in 100 mls @ 0 mls/hr 08/15/20 20:01 08/15/20 22:45 Diprivan IV 50 mcg/kg/min .Q0M HEATHER 31.3 mls/hr Administration Protocol Per Protocol Ipratropium [place] 0.5 mg 08/15/20 21:48 08/15/20 21:45 Ipratropium 0.5 Mg/2.5 Ml Neb INHALATION 0.5 mg Q3H HEATHER Administration Levalbuterol HCl 1.25 mg 08/15/20 21:45 08/15/20 21:45 Levalbuterol 1.25 Mg/3 Ml Neb INHALATION 1.25 mg Q3H HEATHER Administration Methylprednisolone Sodium Succinate 60 mg 08/15/20 21:48 08/15/20 21:58 Methylprednisolone Sod Succ 125 Mg/2 Ml Inj IVP 60 mg Q6H HEATHER Administration Ondansetron HCl 4 mg 08/15/20 11:58 08/15/20 13:23 Ondansetron 2 Mg/Ml Sdv 2 Ml IVP 4 mg Q6H PRN Administration vomiting, or N/V if npo Rocuronium [place] 65 mg 08/15/20 15:54 08/15/20 17:33 Rocuronium 10 Mg/Ml Inj 5ml IV 65 mg Q1H PRN Administration AGITATION PFSH Acute PFSH: Medical History Asthma-COPD overlap syndrome H/O renal calculi H/O: depression Surgical History H/O tubal ligation Hx of cholecystectomy Social History Smoking and tobacco status: former smoker Quit status (tobacco): has quit using tobacco Year quit tobacco: may 2020 [id number] Second hand smoke exposure: Yes Smoking risk assessment/counseling performed?: Yes Alcohol intake: current Alcohol intake frequency: holidays/special occasions only Alcohol type: wine Desire information about alcohol rehabilitation?: No Counseling given: No Caregiver/support person: No Lives independently: Yes Household members: children Housing: House Marital status: service: No Current occupational status: employed Pets and animals: Yes History of recent travel: No Current gender identity: Female Female Reproductive History: Date of last menstrual period: 04/28/20 Vitals/I&O/Wt Last Vital Signs Temp 98.6 F 08/15/20 21:30 Pulse 98 08/15/20 22:00 Resp 18 08/15/20 22:18 BP 146/81 08/15/20 23:00 Pulse Ox 98 08/15/20 23:00 08/15/20 08/15/20 08/16/20 14:59 22:59 06:59 Intake Total 160.221 / 160.221 Balance 160.221 / 160.221 Weight last 48 hrs Weight 230 lb Physical Exam Narrative: EXAM NARRATIVE: PHYSICAL EXAM: General: lying in bed, sedated and intubated. HEENT:NCAT, PERRLA, EOMI Neck: Supple Lungs: Bilateral diffuse wheeze with prolonged expiration Heart: s1/s2, RRR Abd: Obese soft, NT, ND, BS + Normoactive Extremities: No edema CATSHOVEL DRIVER: sedated and limited CATSHOVEL DRIVER exam possible. SKIN: no rash Urinary Catheter Management^: Beebe: Cath Placed During This Visit: yes Urinary Catheter Date of Insertion: 08/15/20 Urinary Catheter Time of Insertion: 15:39 A&P Assessment and plan (1) Asthma-COPD overlap syndrome: Status: Acute (2) ROBINA (obstructive sleep apnea): Status: Acute (3) Ex-smoker for less than 1 year: Status: Acute (4) Respiratory failure with hypercapnia: Status: Acute Qualifiers: Chronicity: acute Qualified Code(s): J96.02 - Acute respiratory failure with hypercapnia (5) Patient ventilator dyssynchrony: Status: Acute #Acute hypercapnic respiratory failure secondary to severe asthma/COPD exacerbation #Ex-smoker with significant smoking history 1.5 PPD cross 23 years quit May 2020 #Undiagnosed ROIBNA #Difficulty vent management due to severe bronchoconstriction -Patient is sedated with fentanyl 125 and propofol 75, pulling low tidal volumes on CMV 18/350 TV/PEEP 10/FiO2 70%. Initial ABG revealed pH 7.11/PCO2 78. - Decreased TI 1sec, increased RR to 20 and TV 400, given a dose of paralytic rocuronium 80 mg and repeat ABG showed 7.17/PcO2 64. - Continued every hour Xopenex/Atrovent and given second dose of magnesium sulfate, -increased tidal volume to 500 and decreased rate to 18 and patient was transferred to ICU. - Increased his sedation fentanyl to 150 and decreased propofol to 50; repeated ABG in couple of hours showed pH 7.30 and PCO2 45. -Requested to continue sedation fentanyl 150 and propofol 50-start weaning of sedation tomorrow morning -to awakening trial and patient is awake and following commands do breathing trials. -Continue Xopenex Atrovent nebulizations every 3 hours scheduled -IV Solu-Medrol 40 every 8 from tomorrow and taper based on clinical response later -Pulmicort 0.5 twice daily scheduled -Chest x-ray-no acute events -Singulair 10 mg daily -Agree with antibiotic coverage with Zosyn and azithromycin Based on most recent ABG-seems like patient is slowly recovering and now her bronchoconstriction is improving and with no underlying significant lung injury- we can plan for tapering off sedation, awakening trial and breathing trial tomorrow. Recommendations conveyed to hospitalist, RN and RT taking care of the patient. Consult Attestations Medical Necessity Statement: Acute hypercarbic respiratory failure secondary to severe asthma exacerbation requiring mechanical ventilation and intubation Time Spent in Patient Care: Greater than 35 minutes (>than 50% of time spent in counselling and/or direct pt care on unit) . Critical Care Time: Critical Care Time (min): 90 Coding Level of Care Code New Pt Acute Surgical Instrument Mechanic for Chg Fwd Patient Type New History Comprehensive Exam Comprehensive Medical Decision Making High Complexity Diagnoses Asthma-COPD overlap syndrome J44.9 ROBINA (obstructive sleep apnea) G47.33 Ex-smoker for less than 1 year Z78.9 Respiratory failure with hypercapnia J96.02 Chronicity: acute Patient ventilator dyssynchrony J95.859 Time Spent (min) 90
[2020-08-16] VITALS (58 sets, daily range): BP systolic 86–137; BP diastolic 49–79; PULSE 71–114; RESP 17–20; TEMP 36.6–37.3; O2SAT 93–100
[2020-08-16] MEDS: piperacillin-tazobactam 3.375 GM in sodium chloride 0.9% (plus) 50 ML IV ×3 (00:55→16:34)
[2020-08-16] MEDS: propofol 1,000 MG/100 ML INJ 31.3 MG IV ×8 (01:32→23:58)
[2020-08-16] MEDS: ipratropium 0.5 mg/2.5 mL Neb INHALATION ×7 (01:59→23:32)
[2020-08-16] MEDS: levalbuterol 1.25 mg/3 mL Neb INHALATION ×8 (01:59→23:32)
[2020-08-16 03:53] LABS: Basophils % 0.2 %; Hematocrit 39.7 % (37.0-47.0); Hemoglobin 12.7 g/dL (11.5-15.3); Lymphocytes # 1.2 10^3/uL (0.8-4.8); Mean Corpuscular Hemoglobin 27.9 pg (28.0-34.0); Mean Corpuscular Volume 87.1 fL (81-99); Mean Platelet Volume 10.4 fL (7.4-10.4); Monocytes # 0.6 10^3/uL (0.2-0.9); Monocytes % 3.6 %; Neutrophils # 15.76 10^3/uL (1.8-7.7); Neutrophils % 88.6 %; Nucleated Red Blood Cells % 0 %; Platelet Count 339 10^3/cmm (130-400); Red Blood Count 4.56 10^6/uL (4.1-5.3); Red Cell Distribution Width 14.3 % (12.1-15.1); White Blood Count 17.8 10^3/uL (4.0-10.0)
[2020-08-16 05:27] LABS: Anion Gap 16.2 (5-19); Blood Urea Nitrogen 17 mg/dL (6-20); Calcium 9.6 mg/dL (8.5-10.5); Carbon Dioxide 22 mmol/L (22-29); Chloride 104 mmol/L (98-107); Glomerular Filtration Rate 55.9 mL/min (90-130); Glucose 216 mg/dL (65-115); Magnesium 2.9 mg/dL (1.7-2.3); Osmolality Calculated 294 mOsm/kg (285-295); Potassium 4.2 mmol/L (3.5-5.1); Sodium 138 mmol/L (136-145)
[2020-08-16 05:45] LABS: ABG PCO2 38.1 mmHg (35-45); ABG PH Result 7.39 (7.35-7.45); Arterial Blood Gas Hematocrit 39.4 % (37-47); Base Excess ABG -1.6 mmol/L (-2.0-2.0); Blood Gas Allen Test Pos; Blood Gas Sample Site Radial, right; Blood Gas Sample Type Arterial; HCO3 ABG 23.1 mmol/L (22-26); Oxygen Device VENT; PO2 ABG 88.1 mmHg (80.0-100.0)
--- NOTE | 2020-08-16 07:00 | XR_ITS ---
WS: [id number] Portable AP upright chest, 08/16/2020 Clinical Data: resp failure Comparison: Portable chest, 08/15/2020, 1736 hours Findings: The endotracheal tube and nasogastric tube remain in good position. The patchy opacity over lying the right diaphragm is not changed. The remainder the lungs is clear. No nodules or masses are seen. There is no pneumothorax. Monitor leads on the chest wall. XR/XR chest 1V portable [id number] Impression: 1. No change in endotracheal tube and nasogastric tube. 2. No change in right lower lobe opacity.
[2020-08-16] MEDS: budesonide 0.5 mg/2 mL Neb INHALATION (09:16)
[2020-08-16] MEDS: sodium chloride 0.9% 1,000 ML 100 ML IV ×2 (09:20→21:51)
[2020-08-16] MEDS: loratadine 10 mg Tablet PO (09:21)
[2020-08-16] MEDS: montelukast sodium 10 mg Tablet PO (09:21)
--- NOTE | 2020-08-16 10:34 | XR_ITS ---
WS: [id number] Portable AP upright chest, 08/16/2020, 1045 hours Clinical Data: tube placement Comparison: Portable chest, 08/16/2020, 0517 hours. Findings: A nasogastric tube now appears to enter the stomach. The distal portion of the tube is clos e to the duodenal bulb. XR/XR chest 1V portable [id number] Impression: Nasogastric tube which appears to end in the stomach and the distal tip is clos e to the duodenal bulb.
[2020-08-16] MEDS: dexmedetomidine 400 MCG in sodium chloride 0.9% (100 ml) 100 ML 5.5 MCG IV (11:40)
--- NOTE | 2020-08-16 13:24 | P.PN_ITS ---
Subjective Subjective: Interval history: Fabi is stable on the ventilator this morning. She is well sedated. Medications: Reviewed: Yes Vitals/I&O/Wt Last Vital Signs Temp 99.1 F 08/16/20 04:00 Pulse 105 H 08/16/20 11:27 Resp 18 08/16/20 13:17 BP 95/49 08/16/20 05:00 Pulse Ox 97 08/16/20 11:27 08/15/20 08/16/20 08/16/20 22:59 06:59 14:59 Intake Total 160.221 / 160.221 369.410 / 529.631 200 / 200 Output Total 250 / 250 Balance 160.221 / 160.221 119.410 / 279.631 200 / 200 Weight last 48 hrs Weight 106.594 kg Weight 104.326 kg Physical Exam Narrative: EXAM NARRATIVE: General exam, well sedated Neck is supple no lymphadenopathy or thyromegaly Cardiovascular tachycardic, no murmur Lungs bilateral expiratory wheezes Abdomen is soft with positive bowel sounds. No obvious organomegaly demonstrates Beebe Extremities no cyanosis clubbing or edema, cap refill brisk Urinary Catheter Management^: Beebe: Cath Placed During This Visit: yes Reason for Continuing Indwelling Catheter: Accurate Measurement of Urinary Output in Critically Ill Patients Urinary Catheter Date of Insertion: 08/15/20 Urinary Catheter Time of Insertion: 15:39 Data : 08/16/20 03:06 08/16/20 03:06 A&P Assessment and plan (1) Asthma-COPD overlap syndrome: Acute asthma exacerbation. Continue Solu-Medrol. Dose adjusted down per pulmonary Continue Xopenex and Atrovent every 4 hours Continue inhaled budesonide Continue Singulair and loratadine Continue Protonix Continue a azithromycin Status: Acute (2) Respiratory failure: Currently on the ventilator. Appreciate pulmonary consult Further vent changes per pulmonary. No plans to extubate today. Likely extubate tomorrow. Status: Acute (3) Tachycardia: Improved with treatment of respiratory failure Status: Acute (4) Hyperglycemia: A1c not elevated Some glucose elevation secondary to steroids. Status: Acute Additional A&P Information Question pneumonia. Procalcitonin level normal. Placed on Zosyn on admission secondary to possibility of aspiration pneumonitis. MRSA PCR pending. Reflux. Initiate Protonix Anxiety. Full code Lovenox for DVT prophylaxis Attestations Medical Necessity Statement*: Needs continued hospitalization for respiratory failure requiring ventilatory support Coding Level of Care Code Acute Student Counselor for Chg Fwd Diagnoses Asthma-COPD overlap syndrome J44.9 Respiratory failure J96.90 Tachycardia R00.0 Hyperglycemia R73.9
[2020-08-16] MEDS: enoxaparin 40 mg/0.4 mL Syringe SUBCUT (14:06)
--- NOTE | 2020-08-16 15:00 | PC.RESP ---
PULMONARY REHAB INFORMATION SENT TO PATIENT.
[2020-08-16] MEDS: azithromycin 500 MG in sodium chloride 0.9% 250 ML 250 MG IV (16:30)
--- NOTE | 2020-08-16 17:20 | PC.NURSE ---
Left wrist IV infiltrated. Hand and arm skin tight. Hand dusky. Restraints released to relieve pressure. Iv removed. Cath tip intact. Hand and arm elevated on 2 pillows . Warm blanket placed over arm. By the time these interventions were done the color of her hand returned to normal.
--- NOTE | 2020-08-16 19:30 | PC.NURSE ---
Report given to JARED Wilks.
--- NOTE | 2020-08-16 19:59 | PC.NURSE ---
Shift summary: Pt remains intubated and sedated at 35% FIO@. HEr lungs were very coarse and wheezy this am. Some improvement noted at end of shift. She bit the ETT so hard first thing this am her O2 sats dropped to 75%. BIte block was inserted around ETT with some difficulty. Sats greatly improved. During the episode the Og was bit hard enough no fluids would pass though so OG was replaced. Placement checked with xray. She did this while on Fentanyl 100mcg/hr and Propofol at 50 mcg/kg/min. Dr Chauhan came by and ordered Precedex started, then to wean fentanyl. At merrill of shift she wan on Fentanyl at 50mcg/hr, Propofol at 50 mcg/kg/min and Precedex at 0.4mck/kg/hr. The skin on her right hand and arm less tight from infiltration. urie is brown output of 525ml. She remains restrained for her safety.
[2020-08-16] MEDS: dexmedetomidine 400 MCG in sodium chloride 0.9% (100 ml) 100 ML 11.1 MCG IV ×2 (20:58→21:48)
--- NOTE | 2020-08-16 23:09 | PM.PN ---
Subjective Subjective: Interval history: Patient ABG improved since admission but still has diffuse expiratory wheezing On suctioning she still has some thick clots coming up Getting agitated while trying to wean off sedation -Plan today is to continue adequate sedation and continue nebulizations and steroids and plan for extubation tomorrow Medications: Reviewed: Yes Vitals/I&O/Wt Last Vital Signs Temp 98.3 F 08/16/20 20:00 Pulse 90 08/16/20 21:30 Resp 18 08/16/20 19:57 BP 118/63 08/16/20 21:30 Pulse Ox 96 08/16/20 21:30 08/16/20 08/16/20 08/17/20 14:59 22:59 06:59 Intake Total 504.925 / 226.549 2196.777 / 2050.702 Output Total 500 / 500 Balance 504.925 / 107.216 6606.777 / 1550.702 Weight last 48 hrs Weight 235 lb Weight 230 lb Physical Exam Narrative: EXAM NARRATIVE: PHYSICAL EXAM: General: lying in bed, sedated and intubated. HEENT:NCAT, PERRLA, EOMI Neck: Supple Lungs: Improving bilateral diffuse wheeze with prolonged expiration Heart: s1/s2, RRR Abd: Obese soft, NT, ND, BS + Normoactive Extremities: No edema ROCK CLIMBING INSTRUCTOR: sedated and limited ROCK CLIMBING INSTRUCTOR exam possible. SKIN: no rash Urinary Catheter Management^: Beebe: Cath Placed During This Visit: yes Reason for Continuing Indwelling Catheter: Accurate Measurement of Urinary Output in Critically Ill Patients Urinary Catheter Date of Insertion: 08/15/20 Urinary Catheter Time of Insertion: 15:39 Data : 08/16/20 03:06 08/16/20 03:06 A&P Assessment and plan (1) Asthma-COPD overlap syndrome: Status: Acute (2) ROBINA (obstructive sleep apnea): Status: Acute (3) Ex-smoker for less than 1 year: Status: Acute (4) Respiratory failure with hypercapnia: Status: Acute (5) Patient ventilator dyssynchrony: Status: Acute #Acute hypercapnic respiratory failure secondary to severe asthma/COPD exacerbation #Ex-smoker with significant smoking history 1.5 PPD cross 23 years quit May 2020 #Undiagnosed ROBINA #Difficulty vent management due to severe bronchoconstriction - -ABG 7.3 /88/20 3/93% on 35% FiO2 500 CV/18 RR - Patient is sedated with fentanyl 125 and propofol 75,-plan is to reduce fentanyl to 50 and propofol to 20 and added Precedex to reduce anxiety -Continued every hour Xopenex/Atrovent every 4 hours, -start weaning of sedation tomorrow morning -to awakening trial and patient is awake and following commands do breathing trials. -Continue Xopenex Atrovent nebulizations every 3 hours scheduled -IV Solu-Medrol 40 every 8 and taper based on clinical response -Pulmicort 0.5 twice daily scheduled -Chest x-ray-RLL opacity -Singulair 10 mg daily -Agree with antibiotic coverage with Zosyn and azithromycin -After extubation continue incentive spirometry/physical therapy/Acapella Based on most recent ABG-seems like patient is slowly recovering and now her bronchoconstriction is improving and with no underlying significant lung injury-we can plan for tapering off sedation, awakening trial and breathing trial tomorrow. Recommendations conveyed to hospitalist, RN and RT taking care of the patient. Attestations Medical Necessity Statement*: Acute hypercapnic respiratory failure secondary to severe asthma exacerbation still requiring mechanical ventilation Time Spent in Patient Care: Greater than 35 minutes (>than 50% of time spent in counselling and/or direct pt care on unit). Critical Care Time: Critical Care Time (min): 45 Coding Level of Care Code Acute Hotel Night Auditor for Chg Fwd Diagnoses Asthma-COPD overlap syndrome J44.9 ROBINA (obstructive sleep apnea) G47.33 Ex-smoker for less than 1 year Z78.9 Respiratory failure with hypercapnia J96.92 Patient ventilator dyssynchrony J95.859
[2020-08-17] VITALS (43 sets, daily range): BP systolic 119–180; BP diastolic 52–114; PULSE 64–137; RESP 14–20; TEMP 36.6–37.2; O2SAT 94–98
[2020-08-17] MEDS: piperacillin-tazobactam 3.375 GM in sodium chloride 0.9% (plus) 50 ML IV ×3 (00:51→17:25)
[2020-08-17] MEDS: propofol 1,000 MG/100 ML INJ 31.3 MG IV ×2 (02:48→05:51)
[2020-08-17 03:46] LABS: Basophils % 0.1 %; Hematocrit 35.2 % (37.0-47.0); Hemoglobin 11.2 g/dL (11.5-15.3); Lymphocytes # 0.8 10^3/uL (0.8-4.8); Lymphocytes % 4.6 %; Mean Corpuscular HGB Conc 31.8 g/dL (30.0-36.0); Mean Corpuscular Hemoglobin 27.4 pg (28.0-34.0); Mean Corpuscular Volume 86.1 fL (81-99); Mean Platelet Volume 10.5 fL (7.4-10.4); Monocytes # 0.5 10^3/uL (0.2-0.9); Monocytes % 2.9 %; Neutrophils # 16.26 10^3/uL (1.8-7.7); Neutrophils % 91.6 %; Nucleated Red Blood Cells % 0 %; Platelet Count 325 10^3/cmm (130-400); Red Blood Count 4.09 10^6/uL (4.1-5.3); White Blood Count 17.8 10^3/uL (4.0-10.0)
[2020-08-17 04:16] LABS: Alanine Aminotransferase 25 U/L (0-33); Albumin Level 3.3 g/dL (3.5-5.2); Alkaline Phosphatase 73 IU/L (35-105); Anion Gap 14.2 (5-19); Aspartate Amino Transferase 51 U/L (0-32); Blood Urea Nitrogen 15 mg/dL (6-20); Calcium 8.9 mg/dL (8.5-10.5); Carbon Dioxide 22 mmol/L (22-29); Chloride 108 mmol/L (98-107); Globulin 3.1 g/dL (1.3-4.6); Glomerular Filtration Rate 80.7 mL/min (90-130); Glucose 203 mg/dL (65-115); Osmolality Calculated 297 mOsm/kg (285-295); Potassium 4.2 mmol/L (3.5-5.1); Sodium 140 mmol/L (136-145); Total Bilirubin 0.2 mg/dL (0.15-1.2); Total Protein 6.4 g/dL (6.6-8.7)
[2020-08-17] MEDS: ipratropium 0.5 mg/2.5 mL Neb INHALATION ×6 (04:23→23:00)
[2020-08-17] MEDS: levalbuterol 1.25 mg/3 mL Neb INHALATION ×6 (04:23→23:00)
--- NOTE | 2020-08-17 05:04 | PC.NURSE ---
Addendum entered by Olga Catherine RN 08/17/20 05:07: Wasted 36 ml fentanyl drip. Original Note: Waste 36 mL of Fentanyl. Witnessed by Olga Catherine RN.
[2020-08-17 05:24] LABS: ABG PCO2 31.1 mmHg (35-45); ABG PH Result 7.49 (7.35-7.45); Arterial Blood Gas Hematocrit 37.2 % (37-47); Base Excess ABG 1.2 mmol/L (-2.0-2.0); Blood Gas Allen Test Pos; Blood Gas Sample Site Radial, right; Blood Gas Sample Type Arterial; HCO3 ABG 23.9 mmol/L (22-26); Oxygen Device VENT
--- NOTE | 2020-08-17 07:28 | XRR_ITS ---
PROCEDURE INFORMATION: Exam: XR Chest, 1 View Exam date and time: 08/17/2020 5:34 AM Age: 35 years old Clinical indication: Condition or disease; Lung condition and disease; Respiratory failure; Status not specified TECHNIQUE: Imaging protocol: XR of the chest Views: 1 view. COMPARISON: CR XR chest 1V portable [id number] 08/16/2020 10:45 AM FINDINGS: Tubes, catheters and devices: An endotracheal tube is placed with its tip approximately 4 cm from the vanessa. A nasogastric tube is present with its tip at least in the proximal stomach. Lungs: See Diaphragm finding. Pleural space: Unremarkable. No pleural effusion. No pneumothorax. Heart/Mediastinum: Unremarkable. No cardiomegaly. Diaphragm: Hazy opacities are again seen superimposed over right hemidiaphragm. There are some increased interstitial markings seen in the left lower hemithorax as well. There does appear to be an improvement in aeration in the right upper hemithorax. Bones/joints: Unremarkable. XR/XR chest 1V portable [id number] IMPRESSION: Bilateral hazy and interstitial opacities present in the lower hemithoraces. There has been an improvement in aeration in the right upper hemithorax however.
[2020-08-17] MEDS: budesonide 0.5 mg/2 mL Neb INHALATION ×2 (08:34→19:59)
[2020-08-17] MEDS: dexmedetomidine 400 MCG in sodium chloride 0.9% (100 ml) 100 ML 11.1 MCG IV (09:02)
[2020-08-17] MEDS: sodium chloride 0.9% 1,000 ML 60 ML IV (09:08)
[2020-08-17] MEDS: propofol 1,000 MG/100 ML INJ 18.8 MG IV (09:14)
[2020-08-17 10:03] LABS: Alanine Aminotransferase 24 U/L (0-33); Albumin Level 3.5 g/dL (3.5-5.2); Alkaline Phosphatase 70 IU/L (35-105); Aspartate Amino Transferase 46 U/L (0-32); Blood Urea Nitrogen 15 mg/dL (6-20); Calcium 8.4 mg/dL (8.5-10.5); Carbon Dioxide 24 mmol/L (22-29); Chloride 109 mmol/L (98-107); Globulin 2.6 g/dL (1.3-4.6); Glomerular Filtration Rate 94.2 mL/min (90-130); Glucose 161 mg/dL (65-115); Osmolality Calculated 296 mOsm/kg (285-295); Sodium 141 mmol/L (136-145); Total Bilirubin 0.2 mg/dL (0.15-1.2); Total Protein 6.1 g/dL (6.6-8.7)
[2020-08-17 10:28] LABS: Anion Gap 12.4 (5-19); Potassium 4.4 mmol/L (3.5-5.1)
[2020-08-17] MEDS: pantoprazole DR 40 mg Tablet PO (11:24)
[2020-08-17] MEDS: loratadine 10 mg Tablet PO (11:24)
[2020-08-17] MEDS: montelukast sodium 10 mg Tablet PO (11:24)
--- NOTE | 2020-08-17 11:35 | PC.NURSE ---
1130 RT had extubated per doctor orders after decreasing sedation. Patient awake and alert, tolerating nasal canula o2 well. Only complaint is of a sore throat.
--- NOTE | 2020-08-17 13:02 | P.PN_ITS ---
Subjective Subjective: Interval history: - ABG slightly alkalotic: - Patient more alert and cooperative had bilious secretions out of her oral cavity clear to gag ET tube; suctioned all the secretions right away -Plan is to wean off sedation and go for extubation -Recommend extubation to BiPAP initially and then to nasal cannula -Clear liquid diets couple of hours after extubation - post extubation intensive spirometry and Acapella -Leukocytosis likely secondary to steroids -Continue 40 q. 8 today and taper later on based on clinical response -Continue Zosyn and azithromycin -Can change Xopenex Atrovent nebulizations every 6 hours scheduled Medications: Reviewed: Yes Vitals/I&O/Wt Last Vital Signs Temp 97.8 F 08/17/20 09:00 Pulse 112 H 08/17/20 11:15 Resp 16 08/17/20 11:12 BP 174/93 08/17/20 11:00 Pulse Ox 96 08/17/20 11:12 08/16/20 08/17/20 08/17/20 22:59 06:59 14:59 Intake Total 1595.777 / 2100.702 379.131 / 2479.833 1204 / 1204 Output Total 950 / 950 450 / 1400 Balance 645.777 / 1150.702 -70.869 / 5169.469 8920 / 1204 Weight last 48 hrs Weight 235 lb Physical Exam Narrative: EXAM NARRATIVE: PHYSICAL EXAM: General: lying in bed, sedated and intubated, opening eyes and following commands HEENT:NCAT, PERRLA, EOMI Neck: Supple Lungs: Improving breath sounds; currently only end expiration wheeze Heart: s1/s2, RRR Abd: Obese soft, NT, ND, BS + Normoactive Extremities: No edema BETTING AGENCY MANAGER: sedated and limited BETTING AGENCY MANAGER exam possible opening eyes and cooperative SKIN: no rash Urinary Catheter Management^: Beebe: Cath Placed During This Visit: yes Reason for Continuing Indwelling Catheter: Accurate Measurement of Urinary Output in Critically Ill Patients Urinary Catheter Date of Insertion: 08/15/20 Urinary Catheter Time of Insertion: 15:39 Data : 08/17/20 03:10 08/17/20 09:20 A&P Assessment and plan (1) Asthma-COPD overlap syndrome: Status: Acute (2) ROBIAN (obstructive sleep apnea): Status: Acute (3) Ex-smoker for less than 1 year: Status: Acute (4) Respiratory failure with hypercapnia: Status: Acute (5) Patient ventilator dyssynchrony: Status: Acute #Acute hypercapnic respiratory failure secondary to severe asthma/COPD exacerbation #Ex-smoker with significant smoking history 1.5 PPD cross 23 years quit May 2020 #Undiagnosed ROBINA #Difficulty vent management due to severe bronchoconstriction - -ABG 7.4 9/31/114/20 3/93% on 30% FiO2 500 CV/18 RR -reduced RR 12 - Patient more alert and cooperative had bilious secretions out of her oral cavity due to gag ET tube; suctioned all the secretions right away -Plan is to wean off sedation and go for extubation -Recommend extubation to BiPAP initially and then to nasal cannula -Clear liquid diets couple of hours after extubation - post extubation intensive spirometry and Acapella -Leukocytosis likely secondary to steroids -Continue 40 q. 8 today and taper later on based on clinical response -Can change Xopenex Atrovent nebulizations every 6 hours scheduled -Pulmicort 0.5 twice daily scheduled -Chest x-ray-RLL opacity -Singulair 10 mg daily -Agree with antibiotic coverage with Zosyn and azithromycin -After extubation continue incentive spirometry/physical therapy/Acapella Based on most recent ABG-seems like patient is slowly recovering and now her bronchoconstriction is improving and with no underlying significant lung injury- we can plan for tapering off sedation, awakening trial and breathing trial tomorrow. Recommendations conveyed to hospitalist, RN and RT taking care of the patient. Attestations Medical Necessity Statement*: #Acute hypercapnic respiratory failure secondary to severe asthma/COPD exacerbation Time Spent in Patient Care: Greater than 35 minutes (>than 50% of time spent in counselling and/or direct pt care on unit) . Critical Care Time: Critical Care Time (min): 45 Coding Level of Care Code Established Pt Acute Conference And Event Organiser for Chg Fwd Patient Type Established History Comprehensive Exam Comprehensive Medical Decision Making High Complexity Diagnoses Asthma-COPD overlap syndrome J44.9 ROBINA (obstructive sleep apnea) G47.33 Ex-smoker for less than 1 year Z78.9 Respiratory failure with hypercapnia J96.92 Patient ventilator dyssynchrony J95.859 Time Spent (min) 45
[2020-08-17] MEDS: enoxaparin 40 mg/0.4 mL Syringe SUBCUT (13:37)
--- NOTE | 2020-08-17 13:47 | P.PN_ITS ---
Subjective Subjective: Interval history: This is a 35-year-old female who presented to the ER on August 15 with complaints of wheezing. Concern for asthma COPD overlap. Initially placed on BiPAP. The patient was noted to have 5 - COVID-19 test but had positive Covid 19 antibodies. He is a smoker history. The patient was noted to be in extreme respiratory distress and was emergently intubated. This morning sedation has been reduced. Plan for possible extubation later today Medications: Reviewed: Yes Vitals/I&O/Wt Last Vital Signs Temp 98.3 F 08/17/20 13:00 Pulse 114 H 08/17/20 13:00 Resp 16 08/17/20 11:12 BP 180/79 08/17/20 13:00 Pulse Ox 98 08/17/20 13:00 08/16/20 08/17/20 08/17/20 22:59 06:59 14:59 Intake Total 1595.777 / 2100.702 379.131 / 2479.833 1204 / 1204 Output Total 950 / 950 450 / 1400 Balance 645.777 / 1150.702 -70.869 / 7046.711 5531 / 1204 Weight last 48 hrs Weight 235 lb Physical Exam Const: OTHER: Intubated and sedated, opens eyes Eye: COMMON NORMALS: EOMs intact bilaterally and conjunctivae normal CONJUNCTIVA: Yes conjunctivae normal Resp: OTHER: on vent, faint wheeze Cardio: COMMON NORMALS: regular rate and regular rhythm RATE: regular rate RHYTHM: regular rhythm GI: COMMON NORMALS: Soft to palpation and no masses PALPATION: Yes Soft to palpation Skin: COMMON NORMALS: no rashes or lesions noted GENERAL SKIN EXAM: no rashes or lesions noted Urinary Catheter Management^: Beebe: Cath Placed During This Visit: yes Reason for Continuing Indwelling Catheter: Accurate Measurement of Urinary Output in Critically Ill Patients Urinary Catheter Date of Insertion: 08/15/20 Urinary Catheter Time of Insertion: 15:39 Data : 08/17/20 03:10 08/17/20 09:20 A&P Assessment and plan (1) Patient ventilator dyssynchrony: Status: Acute (2) Asthma-COPD overlap syndrome: Status: Acute (3) ROBINA (obstructive sleep apnea): Status: Acute (4) Ex-smoker for less than 1 year: Status: Acute Additional A&P Information Respiratory failure -likely 2/2 asthma/COPD -on vent support -plan for extuabation today -SBT -IV solumedrol 40mg q8hr -scheduled inhalers Levalbuterol, budesonide -taper sedation abnormal CXR -?aspiration pna vs atelectasis -continue azithromycin, zosyn -IS post extubaiton COPD -as above DVT:lovenox GI: Protonix Code:full Attestations Medical Necessity Statement*: Fabi Raymundo's hospital stay will require greater than 2 midnights for respiratory failure Coding Level of Care Code Acute Customer Accounts Advisor for Chg Fwd Diagnoses Patient ventilator dyssynchrony J95.859 Asthma-COPD overlap syndrome J44.9 ROBINA (obstructive sleep apnea) G47.33 Ex-smoker for less than 1 year Z78.9
--- NOTE | 2020-08-17 14:19 | PC.NURSE ---
1420 Wasted 80ml of Fentynl witnessed by Faye Treadwell.
--- NOTE | 2020-08-17 14:25 | PC.NURSE ---
Fentanyl gtt: this nurse witnessed waste of 80ml by Adrianne Smith RN.
[2020-08-17] MEDS: acetaminophen 325 mg Tablet 650 MG PO (15:50)
[2020-08-17] MEDS: azithromycin 500 MG in sodium chloride 0.9% 250 ML 250 MG IV (15:54)
[2020-08-17] MEDS: ondansetron 2 mg/ML SDV 2 mL 4 MG IVP (18:01)
--- NOTE | 2020-08-17 18:07 | PC.NURSE ---
1800 took a couple bites of applesauce. 180 complaint of nausea. Medicated for it.
[2020-08-17] MEDS: dexmedetomidine 400 MCG in sodium chloride 0.9% (100 ml) 100 ML IV (22:05)
--- NOTE | 2020-08-17 22:14 | PC.NURSE ---
Noted upon assuming care of patient that patient's heart rate runs 110-140 while in bed. Hospitalist notified. Order received to restart precedex drip. Precedex drip resumed. Will continue to monitor and notify MD as needed.
[2020-08-18] VITALS (26 sets, daily range): BP systolic 121–168; BP diastolic 64–122; PULSE 72–118; RESP 14–33; TEMP 36.6–37.2; O2SAT 92–100
[2020-08-18] MEDS: piperacillin-tazobactam 3.375 GM in sodium chloride 0.9% (plus) 50 ML IV ×4 (00:30→23:59)
[2020-08-18] MEDS: ipratropium 0.5 mg/2.5 mL Neb INHALATION ×6 (03:09→23:37)
[2020-08-18] MEDS: levalbuterol 1.25 mg/3 mL Neb INHALATION ×6 (03:09→23:37)
[2020-08-18 03:36] LABS: Basophils % 0.1 %; Hematocrit 35.2 % (37.0-47.0); Hemoglobin 10.8 g/dL (11.5-15.3); Lymphocytes # 1.1 10^3/uL (0.8-4.8); Lymphocytes % 7.2 %; Mean Corpuscular HGB Conc 30.7 g/dL (30.0-36.0); Mean Platelet Volume 10.3 fL (7.4-10.4); Monocytes # 0.5 10^3/uL (0.2-0.9); Monocytes % 3.3 %; Neutrophils # 13.43 10^3/uL (1.8-7.7); Neutrophils % 88.6 %; Nucleated Red Blood Cells % 0 %; Platelet Count 329 10^3/cmm (130-400); Red Cell Distribution Width 15.4 % (12.1-15.1); White Blood Count 15.2 10^3/uL (4.0-10.0)
[2020-08-18 04:00] LABS: Alanine Aminotransferase 21 U/L (0-33); Albumin Level 3.5 g/dL (3.5-5.2); Alkaline Phosphatase 67 IU/L (35-105); Anion Gap 12.8 (5-19); Aspartate Amino Transferase 42 U/L (0-32); Blood Urea Nitrogen 18 mg/dL (6-20); Calcium 8.6 mg/dL (8.5-10.5); Carbon Dioxide 26 mmol/L (22-29); Chloride 109 mmol/L (98-107); Globulin 2.7 g/dL (1.3-4.6); Glomerular Filtration Rate 94.2 mL/min (90-130); Glucose 135 mg/dL (65-115); Osmolality Calculated 300 mOsm/kg (285-295); Potassium 4.8 mmol/L (3.5-5.1); Sodium 143 mmol/L (136-145); Total Bilirubin 0.2 mg/dL (0.15-1.2); Total Protein 6.2 g/dL (6.6-8.7)
[2020-08-18] MEDS: sodium chloride 0.9% 1,000 ML 60 ML IV ×2 (06:05→23:59)
[2020-08-18] MEDS: budesonide 0.5 mg/2 mL Neb INHALATION ×2 (08:01→19:47)
[2020-08-18] MEDS: montelukast sodium 10 mg Tablet PO (09:11)
[2020-08-18] MEDS: loratadine 10 mg Tablet PO (09:11)
[2020-08-18] MEDS: pantoprazole DR 40 mg Tablet PO (09:11)
[2020-08-18] MEDS: phenol oral Spray 177 mL 2 SPRAY MUCOUS MEM (09:14)
[2020-08-18] MEDS: ALPRAZolam 0.25 mg Tablet 0.125 MG PO (11:40)
[2020-08-18] MEDS: enoxaparin 40 mg/0.4 mL Syringe SUBCUT (11:41)
--- NOTE | 2020-08-18 12:25 | PM.PN ---
Subjective Subjective: Interval history: This is a 35-year-old female who presented to the ER on August 15 with complaints of wheezing. Concern for asthma COPD overlap. Initially placed on BiPAP. The patient was noted to have 5 neg COVID-19 test but had positive Covid 19 antibodies. sHe is a smoker history. The patient was noted to be in extreme respiratory distress and was emergently intubated. she was extubated yesterday. feels anxious. complains of sore throat. sats stable on RA Medications: Reviewed: Yes Vitals/I&O/Wt Last Vital Signs Temp 98.9 F 08/18/20 06:00 Pulse 87 08/18/20 11:29 Resp 18 08/18/20 11:27 BP 143/74 08/18/20 06:00 Pulse Ox 94 08/18/20 11:27 08/17/20 08/18/20 08/18/20 22:59 06:59 14:59 Intake Total 170 / 0621.079 2935 / 2690.685 Output Total 950 / 950 850 / 1800 Balance -780 / 570.685 320 / 890.685 Weight last 48 hrs Weight 234 lb 4.8 oz Physical Exam Const: OTHER: anxious Eye: COMMON NORMALS: EOMs intact bilaterally and conjunctivae normal CONJUNCTIVA: Yes conjunctivae normal Resp: OTHER: wheeze Cardio: COMMON NORMALS: regular rate and regular rhythm RATE: regular rate RHYTHM: regular rhythm GI: COMMON NORMALS: Soft to palpation and no masses PALPATION: Yes Soft to palpation Skin: COMMON NORMALS: no rashes or lesions noted GENERAL SKIN EXAM: no rashes or lesions noted Urinary Catheter Management^: Beebe: Cath Placed During This Visit: yes Reason for Continuing Indwelling Catheter: Accurate Measurement of Urinary Output in Critically Ill Patients Urinary Catheter Date of Insertion: 08/15/20 Urinary Catheter Time of Insertion: 15:39 Data : 08/18/20 03:05 08/18/20 03:05 A&P Assessment and plan (1) Patient ventilator dyssynchrony: Status: Acute (2) Asthma-COPD overlap syndrome: Status: Acute (3) ROBINA (obstructive sleep apnea): Status: Acute (4) Ex-smoker for less than 1 year: Status: Acute Additional A&P Information Respiratory failure -likely 2/2 asthma/COPD -extubated -scheduled nebs -IV solumedrol 40mg q8hr -scheduled inhalers Levalbuterol, budesonide -add xanax abnormal CXR -?aspiration pna vs atelectasis -continue azithromycin, zosyn -IS,acappela COPD -as above DVT:lovenox GI: Protonix Code:full Attestations Medical Necessity Statement*: Fabi Raymundo's hospital stay will require greater than 2 midnights for asthma Coding Level of Care Code Acute Lower School Music Teacher for Chg Fwd Diagnoses Patient ventilator dyssynchrony J95.859 Asthma-COPD overlap syndrome J44.9 ROBINA (obstructive sleep apnea) G47.33 Ex-smoker for less than 1 year Z78.9
--- NOTE | 2020-08-18 14:06 | P.PN_ITS ---
Subjective Subjective: Interval history: Extubated yesterday and the currently on room air saturating well Patient is but anxious-we will start on Xanax Plan is to put her out of bed to chair and physical therapy Continue Zosyn and azithromycin for now She can be transferred to floor tomorrow Medications: Reviewed: Yes Vitals/I&O/Wt Last Vital Signs Temp 98.9 F 08/18/20 06:00 Pulse 87 08/18/20 11:29 Resp 18 08/18/20 11:27 BP 143/74 08/18/20 06:00 Pulse Ox 94 08/18/20 11:27 08/17/20 08/18/20 08/18/20 22:59 06:59 14:59 Intake Total 170 / 1687.747 8229 / 2690.685 Output Total 950 / 950 850 / 1800 Balance -780 / 570.685 320 / 890.685 Weight last 48 hrs Weight 234 lb 4.8 oz Physical Exam Narrative: EXAM NARRATIVE: PHYSICAL EXAM: General: Sitting in bed, not in acute respiratory anxious HEENT:NCAT, PERRLA, EOMI Neck: Supple Lungs: Improving breath sounds;with no appreciable wheeze Heart: s1/s2, RRR Abd: Obese soft, NT, ND, BS + Normoactive Extremities: No edema COMMUNITY LIAISON OFFICER: Awake alert follows commands and communicative SKIN: no rash Urinary Catheter Management^: Beebe: Cath Placed During This Visit: yes Reason for Continuing Indwelling Catheter: Accurate Measurement of Urinary Output in Critically Ill Patients Urinary Catheter Date of Insertion: 08/15/20 Urinary Catheter Time of Insertion: 15:39 Data : 08/18/20 03:05 08/18/20 03:05 A&P Assessment and plan (1) Asthma-COPD overlap syndrome: Status: Acute (2) ROBINA (obstructive sleep apnea): Status: Acute (3) Ex-smoker for less than 1 year: Status: Acute (4) Respiratory failure with hypercapnia: Status: Acute (5) Patient ventilator dyssynchrony: Status: Acute #Acute hypercapnic respiratory failure secondary to severe asthma/COPD exacerbation #Ex-smoker with significant smoking history 1.5 PPD cross 23 years quit May 2020 #Undiagnosed ROBINA #Difficulty vent management due to severe bronchoconstriction -Extubated yesterday and currently on room air saturating more than 92% -Patient more alert and cooperative but she is anxious -Plan is to start Xanax for anxiety; out of bed to chair and physical therapy -Can start tapering steroids -Can change Xopenex Atrovent nebulizations every 6 hours scheduled -Pulmicort 0.5 twice daily scheduled -Chest x-ray-RLL opacity -pneumonia versus atelectasis -Singulair 10 mg daily -Agree with antibiotic coverage with Zosyn and azithromycin -continue incentive spirometry/physical therapy/Acapella - Can transfer to floor tomorrow - When ready for discharge - DC with symbicort 160-4/5 2 puffs/day - give pulm clinic appointment after 1 week Recommendations conveyed to hospitalist, RN and RT taking care of the patient. Attestations Medical Necessity Statement*: Acute hypercapnic respiratory failure secondary to severe asthma/COPD exacerbation - extuabted yesterday and improving Time Spent in Patient Care: Greater than 35 minutes (>than 50% of time s pent in counselling and/or direct pt care on unit) . Critical Care Time: Critical Care Time (min): 45 Coding Level of Care Code Acute Cloth Spreader Screen Printing for Chg Fwd Diagnoses Asthma-COPD overlap syndrome J44.9 ROBINA (obstructive sleep apnea) G47.33 Ex-smoker for less than 1 year Z78.9 Respiratory failure with hypercapnia J96.92 Patient ventilator dyssynchrony J95.859
[2020-08-18] MEDS: azithromycin 500 MG in sodium chloride 0.9% 250 ML 250 MG IV (15:44)
--- NOTE | 2020-08-18 21:02 | PC.NURSE ---
Patient resting in room with eyes closed at this time. Patient is alert and orientated x4. No s/s of distress or complaints of pain. Call light is within reach. Continue care.
[2020-08-19] VITALS (21 sets, daily range): BP systolic 124–171; BP diastolic 78–97; PULSE 70–110; RESP 14–24; TEMP 36.8–36.9; O2SAT 91–97
[2020-08-19] MEDS: ipratropium 0.5 mg/2.5 mL Neb INHALATION ×3 (03:18→11:03)
[2020-08-19] MEDS: levalbuterol 1.25 mg/3 mL Neb INHALATION ×6 (03:19→23:07)
[2020-08-19 03:47] LABS: Basophils % 0.1 %; Hematocrit 37.1 % (37.0-47.0); Hemoglobin 11.5 g/dL (11.5-15.3); Lymphocytes # 1.2 10^3/uL (0.8-4.8); Lymphocytes % 10.3 %; Mean Corpuscular Hemoglobin 27.5 pg (28.0-34.0); Mean Corpuscular Volume 88.8 fL (81-99); Monocytes # 0.4 10^3/uL (0.2-0.9); Monocytes % 3.1 %; Neutrophils # 10.22 10^3/uL (1.8-7.7); Neutrophils % 84.7 %; Nucleated Red Blood Cells % 0 %; Platelet Count 331 10^3/cmm (130-400); Red Blood Count 4.18 10^6/uL (4.1-5.3); Red Cell Distribution Width 14.6 % (12.1-15.1); White Blood Count 12.1 10^3/uL (4.0-10.0)
[2020-08-19 04:10] LABS: Alanine Aminotransferase 26 U/L (0-33); Albumin Level 3.6 g/dL (3.5-5.2); Alkaline Phosphatase 63 IU/L (35-105); Anion Gap 12.6 (5-19); Aspartate Amino Transferase 31 U/L (0-32); Blood Urea Nitrogen 21 mg/dL (6-20); Calcium 9.1 mg/dL (8.5-10.5); Carbon Dioxide 27 mmol/L (22-29); Chloride 103 mmol/L (98-107); Creatinine Clr Calc Pharmacy 152.6669; Globulin 2.8 g/dL (1.3-4.6); Glomerular Filtration Rate 112.5 mL/min (90-130); Glucose 159 mg/dL (65-115); Osmolality Calculated 292 mOsm/kg (285-295); Potassium 4.6 mmol/L (3.5-5.1); Sodium 138 mmol/L (136-145); Total Bilirubin 0.3 mg/dL (0.15-1.2); Total Protein 6.4 g/dL (6.6-8.7)
--- NOTE | 2020-08-19 04:33 | PC.NURSE ---
Patient resting in room with eyes closed at this time. Patient is alert and orientated. Denies any complaints of pain just voices complaints of weakness. IV patent and running per MAR. Patient is able to voice concerns. Patient is on menstrual cycle and has mesh panties and pad in place. Call light within reach. Continue care.
[2020-08-19] MEDS: piperacillin-tazobactam 3.375 GM in sodium chloride 0.9% (plus) 50 ML IV ×3 (07:52→23:46)
[2020-08-19] MEDS: budesonide 0.5 mg/2 mL Neb INHALATION ×2 (08:09→19:57)
[2020-08-19] MEDS: pantoprazole DR 40 mg Tablet PO (08:14)
[2020-08-19] MEDS: montelukast sodium 10 mg Tablet PO (08:14)
[2020-08-19] MEDS: loratadine 10 mg Tablet PO (08:14)
--- NOTE | 2020-08-19 09:11 | PC.CHAP ---
Pastoral Care Encounter/Spiritual Assessment Type of Contact [] Declined amphibious operations officer visit [] Patient/Family/Request visit [] Outpatient visit [] Follow-up visit [] Physician referral [] Code/Alert [] Routine visit [] Staff referral [] Actively dying [] Patient sleeping [] Family support [] [] Out of room [] Palliative care [] [] Receiving care in room [] Pre-surgical visit [] Trauma [] Long length of stay [x] ICU visit [] Other: Relational/Emotional Strength [] Patient feels connected with others/family/visitors/staff [] Distress [] Loneliness/isolation [] Abandonment Spirituality of Patient [] Person of Krystle [] Attends Congregational of their Krystle [] Believes in Prayer [] Reads Bible or Jewish materials [] There are Spiritual issues to be addressed Deck Supervisor Interventions [x] Prayer [] Active listening [] Non-anxious presence [] Spiritual/emotional support [] Crisis/trauma care [] Spiritual counseling [] Bereavement support [] Provided bereavement packet [] Provided Bible/devotional materials [] Provided toy/stuffed animal, coloring book to patient or family member [] Provided Communion [] Anointing/[place] [] Salvation [x] Completed spiritual assessment [] Other: Impact on Illness or Injury [] Angry [] Fearful [] Anxious [] Often cries [] Exhaustion [] Unable to work [] Unable to attend zoroastrian [] Unable to walk/stand [] Unable to read [] Unable to drive [] Unable to eat/drink [] Unable to sleep [] Unable to be with family [] Patient intubated [] Other: Summary Time spent with patient
[2020-08-19] MEDS: enoxaparin 40 mg/0.4 mL Syringe SUBCUT (12:49)
--- NOTE | 2020-08-19 13:53 | PM.PN ---
Subjective Subjective: Interval history: 35 year old with past medical history of tobacco abuse, asthma who presented to ER with hypoxic respiratory distress. Patient initially required mechanical ventilation however was extubated and now currently on RA. 08/19 Extubated, feeling anxious, no respiratory distress. ON RA Medications: Reviewed: Yes Vitals/I&O/Wt Last Vital Signs Temp 98.4 F 08/19/20 14:00 Pulse 90 08/19/20 20:16 Resp 20 H 08/19/20 20:00 BP 137/87 08/19/20 20:00 Pulse Ox 94 08/19/20 20:00 08/19/20 08/19/20 08/19/20 06:59 14:59 22:59 Intake Total 170 / 2240 382.167 / 479.564 1920 / 1752.167 Output Total 750 / 1750 800 / 800 300 / 1100 Balance -580 / 490 -417.833 / -135.065 7123 / 652.167 Weight last 48 hrs Weight 106.277 kg Physical Exam Narrative: EXAM NARRATIVE: General : Alert,awake HEENT: EOMI Cardiovascular: NSR Lungs Nonlabored respiration, no wheezing Abdomen is soft with positive bowel sounds. No obvious organomegaly Extremities : no edema Urinary Catheter Management^: Beebe: Cath Placed During This Visit: yes Reason for Continuing Indwelling Catheter: Accurate Measurement of Urinary Output in Critically Ill Patients Urinary Catheter Date of Insertion: 08/15/20 Urinary Catheter Time of Insertion: 15:39 Data : 08/19/20 03:24 08/19/20 03:24 A&P Assessment and plan (1) Patient ventilator dyssynchrony: Status: Acute (2) Asthma-COPD overlap syndrome: Acute asthma exacerbation. Continue Solu-Medrol. Dose adjusted down per pulmonary Continue Xopenex and Atrovent every 4 hours Continue inhaled budesonide Continue Singulair and loratadine Continue Protonix Continue a azithromycin Extubated Discussed with Pulmonary Medicine Status: Acute (3) ROBINA (obstructive sleep apnea): Status: Acute (4) Ex-smoker for less than 1 year: Status: Acute Additional A&P Information Acute Respiratory failure with hypoxemia s/p MV -Likely 2/2 asthma/COPD -Extubated -Scheduled nebs -IV solumedrol 40mg q8hr -Scheduled inhalers Levalbuterol, budesonide -Add xanax -Currently on room air -Transfer to regular medical floor COPD/ Asthma -as above DVT:lovenox GI: Protonix Code:full Disposition: Ok to transfer to [facility] Attestations Medical Necessity Statement*: Will require further hospitalization for management of hypoxic respiratory failure requiring mechanical ventilation. Anticipate discharge in 1 to 2 days. Time Spent in Patient Care: Greater than 35 minutes (>than 50% of time spent in counselling and/or direct pt care on unit). Coding Level of Care Code Acute Turner Splitter Machine Operator for [facility] Radha Diagnoses Patient ventilator dyssynchrony J95.859 Asthma-COPD overlap syndrome J44.9 ROBINA (obstructive sleep apnea) G47.33 Ex-smoker for less than 1 year Z78.9
[2020-08-19] MEDS: azithromycin 500 MG in sodium chloride 0.9% 250 ML 250 MG IV (15:54)
[2020-08-19] MEDS: sodium chloride 0.9% 1,000 ML 60 ML IV (18:07)
--- NOTE | 2020-08-19 18:35 | PC.NURSE ---
No precedex running at start of my shift, not sure when gtt was d/c, but I stopped it at 0700 in the MAR. No precedex hanging or anywhere to be found in pt room.
--- NOTE | 2020-08-19 20:27 | P.PN_ITS ---
Subjective Subjective: Interval history: For acute events overnight Patient sitting in bed, alert and communicating -Saturating well on room air -Afebrile, improving WBC Medications: Reviewed: Yes Vitals/I&O/Wt Last Vital Signs Temp 98.4 F 08/19/20 14:00 Pulse 90 08/19/20 20:16 Resp 18 08/19/20 19:57 BP 159/84 08/19/20 18:00 Pulse Ox 94 08/19/20 19:57 08/19/20 08/19/20 08/19/20 06:59 14:59 22:59 Intake Total 170 / 2240 382.167 / 965.002 9354 / 1752.167 Output Total 750 / 1750 800 / 800 300 / 1100 Balance -580 / 490 -417.833 / -103.796 8442 / 652.167 Weight last 48 hrs Weight 234 lb 4.8 oz Physical Exam Narrative: EXAM NARRATIVE: PHYSICAL EXAM: General: Sitting in bed, not in acute respiratory anxious HEENT:NCAT, PERRLA, EOMI Neck: Supple Lungs: Improving breath sounds;with no appreciable wheeze Heart: s1/s2, RRR Abd: Obese soft, NT, ND, BS + Normoactive Extremities: No edema 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 MANAGER: Awake alert follows commands and communicative SKIN: no rash Urinary Catheter Management^: Beebe: Cath Placed During This Visit: yes Reason for Continuing Indwelling Catheter: Accurate Measurement of Urinary Output in Critically Ill Patients Urinary Catheter Date of Insertion: 08/15/20 Urinary Catheter Time of Insertion: 15:39 Data : 08/19/20 03:24 08/19/20 03:24 A&P Assessment and plan (1) Asthma-COPD overlap syndrome: Status: Acute (2) ROBINA (obstructive sleep apnea): Status: Acute (3) Ex-smoker for less than 1 year: Status: Acute (4) Respiratory failure with hypercapnia: Status: Acute (5) Patient ventilator dyssynchrony: Status: Acute #Acute hypercapnic respiratory failure secondary to severe asthma/COPD exacerbation #Ex-smoker with significant smoking history 1.5 PPD cross 23 years quit May 2020 #Undiagnosed ROBINA #Difficulty vent management due to severe bronchoconstriction -Extubated 06/17/2021 yesterday and currently on room air saturating more than 92% -Patient more alert and cooperative -On Xanax for anxiety; out of bed to chair and physical therapy -Decrease Solu-Medrol to 40 every 12: Recommended to taper based on clinical response -Can change Xopenex Atrovent nebulizations every 6 hours scheduled -Pulmicort 0.5 twice daily scheduled -Chest x-ray-RLL opacity -pneumonia versus atelectasis -Singulair 10 mg daily -Agree with antibiotic coverage with Zosyn and azithromycin -continue incentive spirometry/physical therapy/Acapella - Can transfer to floor - When ready for discharge - DC with symbicort 160-4/5 2 puffs/day and Singulair- give pulm clinic appointment after 1 week -We will request sleep study as outpatient Recommendations conveyed to hospitalist, RN and RT taking care of the patient. I am signing of the case as patient clinically improved and saturating well on room air. We will follow-up in pulmonary clinic. Do not hesitate to reconsult if necessary Attestations Medical Necessity Statement*: Acute hypercapnic respiratory failure secondary to severe asthma/COPD exacerbation in patient with significant smoking history and undiagnosed ROBINA-extubated and saturating well on room air Time Spent in Patient Care: Greater than 35 minutes (>than 50% of time spent in counselling and/or direct pt care on unit) . 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
[2020-08-20] VITALS (13 sets, daily range): BP systolic 124–159; BP diastolic 60–84; PULSE 60–91; RESP 16–29; TEMP 36.5; O2SAT 93–95
[2020-08-20] MEDS: levalbuterol 1.25 mg/3 mL Neb INHALATION ×3 (03:21→11:35)
[2020-08-20 04:39] LABS: Basophils % 0.2 %; Hematocrit 37.6 % (37.0-47.0); Lymphocytes # 1.7 10^3/uL (0.8-4.8); Lymphocytes % 16.1 %; Mean Corpuscular HGB Conc 31.9 g/dL (30.0-36.0); Mean Corpuscular Hemoglobin 27.7 pg (28.0-34.0); Mean Corpuscular Volume 86.8 fL (81-99); Mean Platelet Volume 9.8 fL (7.4-10.4); Monocytes # 0.4 10^3/uL (0.2-0.9); Monocytes % 3.9 %; Neutrophils # 8.07 10^3/uL (1.8-7.7); Neutrophils % 75.7 %; Nucleated Red Blood Cells % 0 %; Platelet Count 336 10^3/cmm (130-400); Red Blood Count 4.33 10^6/uL (4.1-5.3); Red Cell Distribution Width 13.8 % (12.1-15.1); White Blood Count 10.7 10^3/uL (4.0-10.0)
[2020-08-20] MEDS: sodium chloride 0.9% 1,000 ML 60 ML IV (04:54)
[2020-08-20 05:10] LABS: Alanine Aminotransferase 24 U/L (0-33); Albumin Level 3.8 g/dL (3.5-5.2); Alkaline Phosphatase 62 IU/L (35-105); Anion Gap 14.4 (5-19); Aspartate Amino Transferase 18 U/L (0-32); Blood Urea Nitrogen 23 mg/dL (6-20); Carbon Dioxide 26 mmol/L (22-29); Chloride 104 mmol/L (98-107); Creatinine Clr Calc Pharmacy 152.6669; Globulin 2.2 g/dL (1.3-4.6); Glomerular Filtration Rate 112.5 mL/min (90-130); Glucose 153 mg/dL (65-115); Osmolality Calculated 297 mOsm/kg (285-295); Potassium 4.4 mmol/L (3.5-5.1); Sodium 140 mmol/L (136-145); Total Bilirubin 0.2 mg/dL (0.15-1.2)
[2020-08-20 05:13] LABS: Procalcitonin 0.06 ng/mL (0-0.5)
--- NOTE | 2020-08-20 07:00 | XRR_ITS ---
PROCEDURE INFORMATION: Exam: XR Chest, 1 View Exam date and time: 08/20/2020 5:46 AM Age: 35 years old Clinical indication: Condition or disease; Lung condition and disease; Respiratory failure; Status not specified TECHNIQUE: Imaging protocol: XR of the chest Views: 1 view. COMPARISON: CR XR chest 1V portable [id number] 08/17/2020 5:20 AM FINDINGS: Lungs: Subtle airspace disease right lung base. Pleural space: Unremarkable. No pleural effusion. No pneumothorax. Heart/Mediastinum: Unremarkable. No cardiomegaly. Bones/joints: Unremarkable. XR/XR chest 1V portable [id number] IMPRESSION: Subtle airspace disease right lung base. Lungs are otherwise well aerated. Improved
[2020-08-20] MEDS: montelukast sodium 10 mg Tablet PO (08:03)
[2020-08-20] MEDS: loratadine 10 mg Tablet PO (08:03)
[2020-08-20] MEDS: piperacillin-tazobactam 3.375 GM in sodium chloride 0.9% (plus) 50 ML IV (08:03)
[2020-08-20] MEDS: pantoprazole DR 40 mg Tablet PO (08:03)
[2020-08-20] MEDS: budesonide 0.5 mg/2 mL Neb INHALATION (08:53)
--- NOTE | 2020-08-20 13:56 | P.DS_ITS ---
Discharge Providers Date of Admission: 08/15/20 13:44 Date of Discharge: August 20, 2020 Attending Provider at Admission: Jeffy Crawford MD Attending Provider at Discharge: Soledad Nicole Diagnoses at Discharge Discharge Diagnosis (1) Patient ventilator dyssynchrony: Status: Acute (2) Asthma-COPD overlap syndrome: Status: Acute (3) ROBINA (obstructive sleep apnea): Status: Acute (4) Ex-smoker for less than 1 year: Status: Acute Reason for Visit Reason for Visit: RESPIRATORY DISTRESS Hospital Course Hospital Course 35 year old with past medical history of tobacco abuse, asthma who presented to ER with hypoxic respiratory distress. Initial laboratory work upon arrival showed a WBC of 10.2, hemoglobin of 13.6, hematocrit of 42.4 and a platelet count of 369. D-dimer of 0.63. Arterial blood gases showed a pH of 7.31, pCO2 45.5, PO2 of 241 and a bicarb of 22.6. Sodium 137, potassium 4.1, chloride 104, bicarb 22, BUN 12 and creatinine of 0.8. Urinary drug screen and urinalysis were negative. Chest x-ray did not show any acute abnormality. Due to increased work of breathing patient was intubated and placed on mechanical ventilation. Pulmonary Medicine was consulted. Patient was continued on bronchodilator therapy with Xopenex, Atrovent every 4 hours, inhaled budesonide, and empirically started on antibiotics. In addition to this patient was started on IV Solu-Medrol. Patient continued to improve and was extubated on 08/18/2020. Subsequently showed significant improvement in respiratory status. Was weaned to room air. Home O2 evaluation at the time of discharge was performed and patient did not qualify for oxygen. She was comfortable with discharging home. She was advised to follow-up with Pulmonary Medicine within 1 week after discharge. Physical Exam Narrative: EXAM NARRATIVE: General : Alert,awake HEENT: EOMI Cardiovascular: NSR Lungs Nonlabored respiration, no wheezing on room air Abdomen is soft with positive bowel sounds. No obvious organomegaly Extremities : no edema Urinary Catheter Management^: Beebe: Cath Placed During This Visit: yes, but has since been removed by the nurse Reason for Continuing Indwelling Catheter: Decision to DC Catheter Urinary Catheter Date of Insertion: 08/15/20 Urinary Catheter Time of Insertion: 15:39 Date Urinary Catheter Removed: 08/20/20 Time Urinary Catheter Discontinued: 10:00 Discharge Data Data Completed and Pending: Completed Studies During Hospitalization Category Date Time Status CXRP [XR chest 1V portable [id number]] R outine Exams 08/16/20 10:34 Completed XR chest 1V tawanda ble [id number] Routine Exams 08/16/20 07:00 Completed XR chest 1V tawanda ble [id number] Routine Exams 08/17/20 07:28 Completed XR chest 1V tawanda ble [id number] Routine Exams 08/20/20 07:00 Completed XR chest 1V tawanda ble [id number] Stat Exams 08/15/20 09:23 Completed XR chest 1V tawanda ble [id number] Stat Exams 08/15/20 15:21 Completed XR chest 1V tawanda ble [id number] Stat Exams 08/15/20 17:32 Completed Labs from last 24 hours 08/20/20 08/20/20 08/20/20 04:10 04:10 04:10 WBC 10.7 H RBC 4.33 Hgb 12.0 Hct 37.6 MCV 86.8 MCH 27.7 L MCHC 31.9 RDW 13.8 Plt Count 336 MPV 9.8 Neut % (Auto) 75.7 Lymph % (Auto) 16.1 [place] % (Auto) 3.9 Eos % (Auto) 0.0 Baso % (Auto) 0.2 Neut # (Auto) 8.07 H Lymph # (Auto) 1.7 [place] # (Auto) 0.4 Eos # (Auto) 0.0 Baso # (Auto) 0.0 Nucleated RBC % (a uto) 0 Nucleated RBCs # 0.0 Sodium 140 Potassium 4.4 Chloride 104 Carbon Dioxide 26 Anion Gap 14.4 BUN 23 H Creatinine 0.6 GFR Calculation 112.5 Glucose 153 H Calculated Osmolal ity 297 H Calcium 9.0 Total Bilirubin 0.2 AST 18 ALT 24 Alkaline Phosphata se 62 Total Protein 6.0 L Albumin 3.8 Globulin 2.2 Procalcitonin 0.06 Misc Test Referenc e 08/15/20 17:39 WBC RBC Hgb Hct MCV MCH MCHC RDW Plt Count MPV Neut % (Auto) Lymph % (Auto) [place] % (Auto) Eos % (Auto) Baso % (Auto) Neut # (Auto) Lymph # (Auto) [place] # (Auto) Eos # (Auto) Baso # (Auto) Nucleated RBC % (a uto) Nucleated RBCs # Sodium Potassium Chloride Carbon Dioxide Anion Gap BUN Creatinine GFR Calculation Glucose Calculated Osmolal ity Calcium Total Bilirubin AST ALT Alkaline Phosphata se Total Protein Albumin Globulin Procalcitonin Misc Test Referenc e See comment Vitals: Last Vital Signs Temp 97.7 F 08/20/20 04:00 Pulse 80 08/20/20 12:54 Resp 16 08/20/20 12:54 BP 129/76 08/20/20 12:54 Pulse Ox 95 08/20/20 12:54 Discharge Plan Discharge Patient Disposition: Home Condition: Stable Prescriptions: New montelukast 10 mg Tablet 10 mg PO DAILY Qty: 30 RF: 0 Symbicort 160-4.5 mcg/actuation HFA aerosol inhaler 2 inh inhalation BID Qty: 10.2 RF: 0 prednisone 10 mg tablets,dose pack See Rx Instructions .ROUTE .COMPLEX Qty: 21 RF: 0 cefuroxime axetil 250 mg tablet 250 mg PO BID 5 Days Qty: 10 RF: 0 Ventolin HFA 90 mcg/actuation HFA aerosol inhaler 1 inh inhalation Q6H PRN (Reason: shortness of breath or wheezing) Qty: 6.7 RF: 0 Continued paroxetine HCl [Paxil] 10 mg tablet 10 mg PO DAILY PRN (Reason: Anxiety) RF: 0 Singulair 10 mg Tablet 10 mg PO DAILY RF: 0 hydroxyzine HCl 25 mg Tablet 12.5 - 25 mg PO TID PRN (Reason: Anxiety) RF: 0 28 mg iron- 800 mcg Tablet 1 tab PO DAILY@07 RF: 0 albuterol sulfate 90 mcg/actuation HFA aerosol inhaler 2 inh INHALATION Q6H PRN (Reason: shortness of breath or wheezing) Qty: 8 RF: 0 Discontinued albuterol sulfate 2.5 mg/0.5 mL Solution For Nebulization 2.5 mg inhalation Q6H.RESPIRATORY PRN (Reason: Shortness Of Breath) Qty: 30 RF: 0 Serevent Diskus 50 mcg/dose Blister With Device 1 inh INHALATION BID RF: 0 Childrens Robitussin Syrup 20 ml PO PRN RF: 0 Discharge Orders: Discharge Order (Routine); Ordered 08/20/20 Ordered By: Soledad Nicole Patient Instructions: Cefuroxime (By mouth), Albuterol (By breathing), Prednisone (By mouth), Montelukast (By mouth), Budesonide/Formoterol (By breathing), Asthma (GEN) Discharge Attestations Time Spent in Discharge Care*: greater than 30 min Specific Discharge Activities: educating patient, discussing with pcp/other providers, discussing with renal case manager/social workers/dc planners, documenting/other paperwork and evaluating patient/reviewing data Status at Discharge: Cognitive status at discharge: cognitively intact , Behavioral status at discharge: cooperative , Functional status at discharge: independent ambulation Overall status at discharge: patient is back to baseline Quality Metrics Clinical Quality Measures During this hospital stay, did patient experience: None Coding Level of Care Code Acute 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
== END 2020-08-20 12:54 | disposition home or self-care (01) | DRG 208 ==
LOC: ER 15:01 → ICU 20:07
PROVIDERS: Internal Medicine; Internal Medicine Pulmonary Disease; Admitting Provider Internal Medicine; Emergency Provider Family Medicine; Visit Provider Hospitalist
DX: J96.02 Acute respiratory failure with hypercapnia (principal); J45.901 Unspecified asthma with (acute) exacerbation; J95.859 Other complication of respirator [ventilator]; J44.9 Chronic obstructive pulmonary disease, unspecified; Z87.442 Personal history of urinary calculi; Z87.891 Personal history of nicotine dependence; R00.0 Tachycardia, unspecified; R73.9 Hyperglycemia, unspecified; F41.9 Anxiety disorder, unspecified; Z86.16 Personal history of COVID-19; G47.33 Obstructive sleep apnea (adult) (pediatric); Z79.51 Long term (current) use of inhaled steroids
CPT/HCPCS: 12345; 36415; 36600; 51702; 71045; 80048; 80051; 80053; 80306; 81003; 82330; 82550; 82803; 82805; 83036; 83605; 83735; 84145; 85025; 85378; 87641; 93005; 94002; 94003; 94640; 94660; 94664; 94799; 96372; 99283; 99291; J0330; J0456; J1100; J1650; J2060; J2270; J2405; J2543; J2704; J2920; J2930; J3010; J3475; J3490; J7030; J7050; J7614; J7626; J7644

== ENCOUNTER 2020-08-22 13:18 | Outpatient (CLI) | payer BC, MEDICAID, SELFPAY ==
[2020-08-22 14:08] LABS: Basophils # 0.1 10^3/uL (0.0-0.1); Basophils % 0.4 %; Eosinophils % 0.1 %; Hematocrit 41.1 % (37.0-47.0); Hemoglobin 13.4 g/dL (11.5-15.3); Lymphocytes # 1.8 10^3/uL (0.8-4.8); Mean Corpuscular HGB Conc 32.6 g/dL (30.0-36.0); Mean Corpuscular Hemoglobin 27.3 pg (28.0-34.0); Mean Corpuscular Volume 83.7 fL (81-99); Mean Platelet Volume 9.6 fL (7.4-10.4); Monocytes # 0.4 10^3/uL (0.2-0.9); Monocytes % 2.7 %; Neutrophils # 11.91 10^3/uL (1.8-7.7); Neutrophils % 80.1 %; Nucleated Red Blood Cells % 0 %; Platelet Count 410 10^3/cmm (130-400); Red Blood Count 4.91 10^6/uL (4.1-5.3); Red Cell Distribution Width 13.4 % (12.1-15.1); White Blood Count 14.9 10^3/uL (4.0-10.0)
[2020-08-22 14:39] LABS: Thyroid Stimulating Hormone 0.28 uIU/mL (0.27-4.20)
[2020-08-23 16:18] LABS: Immunoglobulin E 66 kU/L (<OR=114)
[2020-08-23 16:48] LABS: Alternaria Alternata (M6) Ige <0.10 kU/L; Alternaria Class 0; Bermuda Class 0; Bermuda Grass (G2) Ige <0.10 kU/L; Cat Dander (E1) Ige <0.10 kU/L; Cat Dander Class 0; Common Ragweed (Short) (W1) Ig <0.10 kU/L; D. Farinae Class 0/1; Dermatophagoides Class 0/1; Dermatophagoides Farinae (D2) 0.13 kU/L; Dermatophagoides Pteronyssinus 0.15 kU/L; Dog Dander (E5) Ige <0.10 kU/L; Dog Dander Class 0; Elm (T8) Ige <0.10 kU/L; Elm Class 0; English Plantain (W9) Ige <0.10 kU/L; English Plantain Class 0; House Dust (Greer) (H1) Ige <0.10 kU/L; House Dust (Hollister- Stier) <0.10 kU/L; House Dust Class 0; Immunoglobulin E 65 kU/L (<OR=114); Johnson Grass (G10) Ige <0.10 kU/L; Johnson Grass Cl 0; June Grass Class 0; June Grass(Kentucky Blue) (G8) <0.10 kU/L; Lamb'S Quarters (Goose Foot) <0.10 kU/L; Lamb'S Quarters Class 0; Maple (Box Elder) (T1) Ige <0.10 kU/L; Maple Class 0; Meadow Fescue (G4) Ige <0.10 kU/L; Meadow Fescue Class 0; Mucor Racemosus Class 0; Oak (T7) Ige <0.10 kU/L; Oak Class 0; Orchard Grass (Cocksfoot) (G3) <0.10 kU/L; Penicillium Class 0; Penicillium Notatum (M1) Ige <0.10 kU/L; Perennial Rye Grass (G5) Ige <0.10 kU/L; Perennial Rye Grass Class 0; Ragweeed Class 0; Rough Marsh Elder (W16) Ige <0.10 kU/L; Rough Marsh Elder Class 0; Sweet Vernal Class 0; Sweet Vernal Grass (G1) Ige <0.10 kU/L; Timothy Grass (G6) Ige <0.10 kU/L; Timothy Grass Class 0
[2020-08-27 15:40] LABS: Aspergillus Fumigatus, Igg Ab, 14.3 mg/L (<=102)
== END 2020-08-22 13:19 | disposition home or self-care (01) ==
PROVIDERS: Visit Provider Internal Medicine Pulmonary Disease
DX: J44.9 Chronic obstructive pulmonary disease, unspecified (principal)
CPT/HCPCS: 36415; 82785; 84443; 85025; 86003

== ENCOUNTER 2020-08-27 20:00 | Outpatient (CLI) | payer BC, MEDICAID, SELFPAY | END 2020-08-27 20:01 | disposition home or self-care (01) | LOC: SLEEP 08-28 09:02 | PROVIDERS: Visit Provider Internal Medicine Pulmonary Disease | DX: G47.33 Obstructive sleep apnea (adult) (pediatric) (principal) | CPT/HCPCS: 95810 ==

== ENCOUNTER → 2020-09-04 09:26 | Outpatient (BNVA) | payer BC, MEDICAID, SELFPAY | PROVIDERS: Visit Provider Internal Medicine Pulmonary Disease | DX: R06.02 Shortness of breath (principal) | CPT/HCPCS: 87635 ==

== ENCOUNTER 2020-09-09 08:44 | Outpatient (CLI) | payer BC, MEDICAID, SELFPAY ==
--- NOTE | 2020-09-09 09:54 | PFTS_ITS ---
Date of Study:09/09/20 Date of Dictation: 09/09/2020 MECHANICS: Forced vital capacity (FVC) is normal. Forced expiratory volume in one second (FEV1) is normal. FEV1/FVC is normal. FLOW VOLUME LOOP: Normal . LUNG VOLUMES: Total lung capacity (TLC) is normal. Residual volume (RV) is normal. DIFFUSING CAPACITY FOR CARBON MONOXIDE: Normal . INTERPRETATION: The pulmonary function tests are normal MTDD
== END 2020-09-09 08:45 | disposition home or self-care (01) ==
LOC: RT 08:48
PROVIDERS: PCP Family Medicine; Visit Provider Internal Medicine Pulmonary Disease
DX: J44.9 Chronic obstructive pulmonary disease, unspecified (principal)
CPT/HCPCS: 94010; 94726; 94729

== ENCOUNTER 2020-10-21 20:00 | Outpatient (CLI) | payer BC, MEDICAID, SELFPAY | END 2020-10-21 20:01 | disposition home or self-care (01) | LOC: SLEEP 10-22 09:02 | PROVIDERS: PCP Family Medicine; Visit Provider Internal Medicine Pulmonary Disease | DX: G47.33 Obstructive sleep apnea (adult) (pediatric) (principal) | CPT/HCPCS: 95811 ==

== ENCOUNTER 2022-04-15 07:28 | Emergency (ER) | payer OTHER, BC, MEDICAID, SELFPAY ==
[2022-04-15] VITALS (8 sets, daily range): BP systolic 110–126; BP diastolic 66–80; PULSE 81–106; RESP 17–22; TEMP 36.9; O2SAT 95–97
--- NOTE | 2022-04-15 07:37 | W.ED.ASTHMA ---
HPI - Asthma General: Chief Complaint: Asthma Stated Complaint: SOB-asthma Time Seen by Provider: 04/15/22 07:37 History of Present Illness: Ms. Raymundo is a 36-year-old lady with history of asthma COPD overlap syndrome and postviral syndrome presenting to the emergency department due to shortness of breath and wheezing. She reports onset of symptoms yesterday with generalized illness including body aches and increased cough. This progressed throughout the day and woke up this morning with significant shortness of breath. Has not had significant improvement with home nebulizer treatments or medications. Intensity symptoms is moderate to severe. Course has worsened. No other specific changes in health, exacerbating, or alleviating factors identified. Onset (ago): hour(s) Severity: moderate Context: other Associated symptoms: Reports productive cough and other Asthma History: adult onset and followed by specialist Review of Systems General: Reports: 10 or more systems reviewed and unremarkable except in HPI and below Resp: Reports: productive cough PFSH ED PFSH: Medical History Asthma-COPD overlap syndrome H/O renal calculi H/O: depression Surgical History H/O tubal ligation Hx of cholecystectomy Social History Smoking and tobacco status: current every day smoker cigarettes Packs smoked per day: 0.5 [ Other cigarette details: [id number]] Quit status (tobacco): considering quitting Second hand smoke exposure: Yes Smoking risk assessment/counseling performed?: Yes Alcohol intake: current Alcohol intake frequency: holidays/special occasions only Alcohol type: wine Desire information about alcohol rehabilitation?: No Counseling given: No Caregiver/support person: No Lives independently: Yes Household members: children Housing: House Marital status: service: No Current occupational status: employed Pets and animals: Yes History of recent travel: No Current gender identity: Female Female Reproductive History: Date of last menstrual period: 09/15/20 Physical Exam Const: COMMON NORMALS: alert GENERAL APPEARANCE: cooperative and well developed HENMT: COMMON NORMALS: normocephalic and atraumatic HEAD & SCALP: normocephalic and atraumatic Eye: COMMON NORMALS: conjunctivae normal CONJUNCTIVA: Yes conjunctivae normal SCLERA: sclerae normal Neck/C-Spine: COMMON NORMALS: supple GENERAL: Yes trachea midline Resp: EFFORT & INSPECTION: Yes tachypneic and Yes labored AUSCULTATION: wheezes and diminished lung sounds Cardio: COMMON NORMALS: regular rate and regular rhythm RATE: regular rate RHYTHM: regular rhythm GI: COMMON NORMALS: Soft to palpation PALPATION: Yes Soft to palpation and No Tenderness to palpation present (GI) PERCUSSION: normal to percussion Extremity: GENERAL: Yes normal exam except as noted and No edema Neuro: COMMON NORMALS: moves all extremities SENSORIUM/ORIENTATION: Yes alert and No Orientation impaired Psych: COMMON NORMALS: mental status grossly normal and Normal thought process present THOUGHT PROCESS: Normal thought process present Course ED course: - Patient was seen and evaluated by me at bedside - Patient placed on cardiac monitors, IV access obtained - Initial evaluation notable for exam as above. - Labs and xrays personally interpreted by me - Fluids, steroids, magnesium, and RT treatment ordered - Labs notable for entero/rhinovirus - Imaging notable for no lobar consolidation or pneumothorax - Upon serial reexamination after treatment the patient was improved with repeat RT treatment - Based on patient history, evaluation, and testing as interpreted the most likely cause of the patient's condition is asthma/COPD exacerbation - The results of ED evaluation were discussed with the patient including prescriptions and/or symptomatic cares (if applicable) including appropriate and responsible use, followup plan, and return precautions. The patient verbalized understanding and felt safe for discharge. - Patient discharged in satisfactory condition. Note: Click bubbles or prepopulated keene in note writing are used for assistance with data collection and billing and are inherently more limited than narrative and other text portions of this note. Please use narrative for additional clinical history and defer to narrative/free test for any case of contradictory information. If information appears in only free text or click bubble it should be considered present or absent as reported. Please contact note technical writer and editor for clarifications of clinical information or contradictory information. MDM is a brief summary, contradictory or erroneous seeming information should be clarified and full note should be reviewed. Vital Signs: Vital signs: Vital Signs Temperature 98.5 F 04/15/22 07:33 Pulse Rate 106 H 04/15/22 09:36 Respiratory Rate 20 H 04/15/22 09:36 Blood Pressure 110/66 04/15/22 09:36 Pulse Oximetry 96 04/15/22 09:36 Oxygen Delivery Me thod 04/15/22 09:36 MDM - Asthma Medical Decision Making 37-year-old lady with history of underlying lung disease presenting with respiratory symptoms. Patient improved with treatment in the emergency department and likely has acute exacerbation of underlying lung disease secondary to viral syndrome. Satisfactory for outpatient management. Medical Records I reviewed the patient's medical records. Lab Data I reviewed the patient's lab results. Radiology Impressions Chest X-Ray 04/15/22 07:44 Impression: Negative chest. Laboratory Results Nasal Influ A H1 2009 PCR Not detected (NOT DETECT) 04/15/22 08:17 Adenovirus (PCR) Not detected (NOT DETECT) 04/15/22 08:17 C. pneumoniae DNA (PCR) Not detected (NOT DETECT) 04/15/22 08:17 Coronavirus 229E (PCR) Not detected (NOT DETECT) 04/15/22 08:17 Human Metapneumovir PCR Not detected (NOT DETECT) 04/15/22 08:17 Influenza A (H1) PCR Not detected (NOT DETECT) 04/15/22 08:17 Influenza A (H3) PCR Not detected (NOT DETECT) 04/15/22 08:17 Influenza Type A (PCR) Not detected (NOT DETECT) 04/15/22 08:17 Influenza Type B (PCR) Not detected (NOT DETECT) 04/15/22 08:17 M. pneumoniae (PCR) Not detected (NOT DETECT) 04/15/22 08:17 Parainfluenza 1 (PCR) Not detected (NOT DETECT) 04/15/22 08:17 Parainfluenza 2 (PCR) Not detected (NOT DETECT) 04/15/22 08:17 Parainfluenza 3 (PCR) Not detected (NOT DETECT) 04/15/22 08:17 Parainfluenza 4 (PCR) Not detected (NOT DETECT) 04/15/22 08:17 RSV Type A (PCR) Not detected (NOT DETECT) 04/15/22 08:17 RSV Type B (PCR) Not detected (NOT DETECT) 04/15/22 08:17 Entero/Rhino (PCR) Detected (NOT DETECT) A 04/15/22 08:17 SARS-CoV-2 (PCR) Not detected (NOT DETECT) 04/15/22 08:17 Discharge Plan Discharge Patient Disposition: Home Clinical Impression: Asthma-COPD overlap syndrome, Asthma with acute exacerbation Condition: Stable Prescriptions: New Diflucan 150 mg tablet 150 mg PO Q3D Qty: 2 0RF albuterol sulfate 1.25 mg/3 mL solution for nebulization 1.25 mg inhalation Q4H PRN (Reason: shortness of breath or wheezing) Qty: 90 2RF No Action cetirizine [Zyrtec] 10 mg tablet 10 mg PO DAILY PRN (Reason: allergy symptoms) Qty: 14 0RF fluticasone propionate [Flonase Allergy Relief] 50 mcg/actuation spray,suspension 1 spray intranasal BID Qty: 16 3RF Rx Instructions: administer into each nostril Ventolin HFA 90 mcg/actuation HFA aerosol inhaler 1 inh inhalation Q6H PRN (Reason: shortness of breath or wheezing) Qty: 6.7 5RF montelukast 10 mg tablet 10 mg PO DAILY Qty: 30 5RF budesonide-formoterol [Symbicort] 80-4.5 mcg/actuation HFA aerosol inhaler 2 puff inhalation BID Qty: 10.2 3RF Discharge Orders: Discharge ED (Routine); Ordered 04/15/22 Ordered By: Antonio Villalobos Discharge Diet: Usual diet Discharge Activity: Increase activity as tolerated Patient Instructions: Moderate and Severe Persistent Asthma (ED), How to Use a Nebulizer (ED) Activity Restrictions/Additional Instructions: Thank you for visiting the emergency department. You were seen and evaluated for shortness of breath and wheezing. The most likely cause of this is viral exacerbation of underlying asthma/COPD. This will be treated with steroids and antibiotics. Please use scheduled albuterol as discussed. 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 Please continue your other medications. Return to the emergency department for worsening symptoms or anything else that you are concerned about a feel needs emergency department evaluation. Stand Alone Forms: Work/School Release Coding Level of Care Code ED Director Emergency Department for Isaac Fwd Exam Comprehensive
--- NOTE | 2022-04-15 07:44 | XR_ITS ---
WS: [id number] Portable AP upright chest, 04/15/2022 Clinical Data: sob, wheezing Comparison: Portable chest, 08/20/2020. Findings: No nodules, masses or effusions are seen. The heart is normal. The pulmonary vascularity is not increased. No pneumonia or pneumothorax is seen. Monitor leads are on the chest wall. XR/XR chest 1V portable [id number] Impression: Negative chest.
[2022-04-15] MEDS: ipratropium-albuterol 3 mL Neb INHALATION (07:51)
[2022-04-15] MEDS: lactated ringers 1,000 ML 999 ML IV (08:10)
[2022-04-15 11:10] LABS: Adenovirus Not Detected (NOT DETECT); Chlamydia Pneumoniae Not Detected (NOT DETECT); Coronavirus 229E,HKU1,NL63,OC4 Not Detected (NOT DETECT); Human Metapneumovirus Not Detected (NOT DETECT); Human Rhinovirus/Enterovirus Detected (NOT DETECT); Influenza A Not Detected (NOT DETECT); Influenza A H1 Not Detected (NOT DETECT); Influenza A H1-2009 Not Detected (NOT DETECT); Influenza A H3 Not Detected (NOT DETECT); Influenza B Not Detected (NOT DETECT); Mycoplasma Pneumoniae Not Detected (NOT DETECT); Parainfluenza Virus Type 1 Not Detected (NOT DETECT); Parainfluenza Virus Type 2 Not Detected (NOT DETECT); Parainfluenza Virus Type 3 Not Detected (NOT DETECT); Parainfluenza Virus Type 4 Not Detected (NOT DETECT); Respiratory Syncytial Virus A Not Detected (NOT DETECT); Respiratory Syncytial Virus B Not Detected (NOT DETECT); SARS-COV-2 Not Detected (NOT DETECT)
== END 2022-04-15 10:35 | disposition home or self-care (01) ==
PROVIDERS: Emergency Provider Emergency Medicine
DX: J44.9 Chronic obstructive pulmonary disease, unspecified (principal); F17.210 Nicotine dependence, cigarettes, uncomplicated
CPT/HCPCS: 71045; 87486; 87581; 87633; 94640; 96365; 96375; 99284; J2930; J3475; J7611

== ENCOUNTER 2022-06-16 17:39 | Emergency (ER) | payer OTHER, SELFPAY ==
[2022-06-16 17:48] VITALS: BP 119/91; PULSE 90; RESP 16; TEMP 36.4; O2SAT 99
--- NOTE | 2022-06-16 18:12 | ED_ITS ---
HPI - Fall General: Chief Complaint: Fall Stated Complaint: Fall Time Seen by Provider: 06/16/22 18:12 History of Present Illness: Patient is in today for headache and blurred vision status post fall. She reports that she was at work on Wednesday and she fell and hit her head on the left side on a metal prep tray. She denies any loss of consciousness. She reports that immediately she had some blurred vision however that resolved within a few minutes. She reports that today she is more and more sore everywhere she has bruising on her right arm and both of her knees are sore. She reports that she has pain to palpation on the left side parietal region. She reports that she became concerned today when she was driving as she developed blurred vision. Associated symptoms-after fall: Reports headache(s); Denies chest pain Review of Systems Const: Denies: fever(s) or chills Eyes: Reports: change in vision, blurry vision and eye discomfort Card: Denies: chest pain or palpitations Resp: Denies: dyspnea Neuro: Reports: headache(s) PFSH ED PFSH: Medical History Asthma-COPD overlap syndrome H/O renal calculi H/O: depression Surgical History H/O tubal ligation Hx of cholecystectomy Social History Smoking and tobacco status: current every day smoker cigarettes Packs smoked per day: 0.5 [ Other cigarette details: [id number]] Quit status (tobacco): considering quitting Second hand smoke exposure: Yes Smoking risk assessment/counseling performed?: Yes Alcohol intake: current Alcohol intake frequency: holidays/special occasions only Alcohol type: wine Desire information about alcohol rehabilitation?: No Counseling given: No Caregiver/support person: No Lives independently: Yes Household members: children Housing: House Marital status: service: No Current occupational status: employed Pets and animals: Yes History of recent travel: No Current gender identity: Female Female Reproductive History: Date of last menstrual period: 09/15/20 Physical Exam Const: COMMON NORMALS: no acute distress, patient oriented x3 and alert Eye: COMMON NORMALS: Equal, round and reactive pupils present, EOMs intact bilaterally and conjunctivae normal CONJUNCTIVA: Yes conjunctivae normal PUPIL: Yes Equal, round and reactive pupils present OTHER: Patient reports pain with left lateral eye gaze Resp: COMMON NORMALS: normal respiratory effort, No use of accessory muscles and clear to auscultation bilaterally AUSCULTATION: clear to auscultation bilaterally Cardio: COMMON NORMALS: regular rate, regular rhythm, S1 normal heart sound present and S2 normal heart sound present RATE: regular rate RHYTHM: regular rhythm HEART SOUNDS: S1 normal heart sound present and S2 normal heart sound present Neuro: COMMON NORMALS: patient oriented x3, CN's II-XII intact bilaterally, moves all extremities, no focal motor deficits and no sensory deficits noted SENSORIUM/ORIENTATION: Yes alert Course Vital Signs: Vital signs: Vital Signs Temperature 97.5 F L 06/16/22 17:48 Pulse Rate 90 06/16/22 17:48 Respiratory Rate 16 06/16/22 17:48 Blood Pressure 119/91 06/16/22 17:48 Pulse Oximetry 99 06/16/22 17:48 MDM - Fall Medical Decision Making Patient is in today status post fall on Wednesday. She reports that she hit her head and did not have a loss of consciousness. Patient reports that today she started having blurred vision which she had not had since immediately after the fall. She has pain with lateral eye gaze. Cranial nerves II through XII are grossly intact. CT scan head today which did not show any acute abnormality. We will treat patient conservatively for postconcussive syndrome. Educated her about brain rest. Work note is given. Follow-up with primary care provider. Recommend routine eye evaluation. Return to the ER for new or worsening symptoms. Patient voiced understanding of all instruction. All questions answered to satisfaction. Patient discharged in stable condition Lab Data Radiology Impressions Head CT 06/16/22 19:34 IMPRESSION: No acute intracranial abnormality. Laboratory Results Urine HCG, Qual Negative (Negative) 06/16/22 18:54 Discharge Plan Discharge Patient Disposition: Home Clinical Impression: Post concussive syndrome Condition: Stable Prescriptions: No Action cetirizine [Zyrtec] 10 mg tablet 10 mg PO DAILY PRN (Reason: allergy symptoms) Qty: 14 0RF fluticasone propionate [Flonase Allergy Relief] 50 mcg/actuation spray,suspension 1 spray intranasal BID Qty: 16 3RF Rx Instructions: administer into each nostril Ventolin HFA 90 mcg/actuation HFA aerosol inhaler 1 inh inhalation Q6H PRN (Reason: shortness of breath or wheezing) Qty: 6.7 5RF montelukast 10 mg tablet 10 mg PO DAILY Qty: 30 5RF budesonide-formoterol [Symbicort] 80-4.5 mcg/actuation HFA aerosol inhaler 2 puff inhalation BID Qty: 10.2 3RF Diflucan 150 mg tablet 150 mg PO Q3D Qty: 2 0RF albuterol sulfate 1.25 mg/3 mL solution for nebulization 1.25 mg inhalation Q4H PRN (Reason: shortness of breath or wheezing) Qty: 90 2RF Discharge Orders: Discharge ED (Routine); Ordered 06/16/22 Ordered By: Jennifer Lion Discharge Diet: Usual diet Discharge Activity: Increase activity as tolerated Patient Instructions: Post Concussion Syndrome (ED) Activity Restrictions/Additional Instructions: Your CT scan did not show any evidence of acute abnormality. I recommend conservative treatment for this at home. Alternating Tylenol and Motrin to help with head pain. Make sure that you are staying well-hydrated. I recommend 72 hours of brain rest which includes limited screen time (phone, TV, computer) limited fluorescent lighting, resting in a dark room with limited talking. Follow-up with your primary care provider for ongoing management. I recommend a routine eye examination. Return to the ER for any new or worsening symptoms, increased pain or change in pain characteristic, vomiting, confusion, weakness, further change in vision. Stand Alone Forms: Work/School Release Coding Level of Care Code ED Non Destructive Tester for Chg Fwd Exam Detailed
--- NOTE | 2022-06-16 19:34 | CTR_ITS ---
PROCEDURE INFORMATION: Exam: CT Head Without Contrast Exam date and time: 06/16/2022 7:43 PM Age: 37 years old Clinical indication: Injury or trauma; Fall; Work related; Blunt trauma (contusions or hematomas); Dizziness; Injury date: Wednesday; Additional info: Head injury sat with new onset blurred vision TECHNIQUE: Imaging protocol: Computed tomography of the head without contrast. Radiation optimization: All CT scans at this facility use at least one of these dose optimization techniques: automated exposure control; mA and/or kV adjustment per patient size (includes targeted exams where dose is matched to clinical indication); or iterative reconstruction. COMPARISON: No relevant prior studies available. RADIATION DOSE METRICS: Total DLP (mGy-cm): 1093.08 FINDINGS: Brain: Normal. No hemorrhage. Unremarkable white matter. No mass effect. Cerebral ventricles: No ventriculomegaly. Paranasal sinuses: Visualized sinuses are unremarkable. No fluid levels. Mastoid air cells: Visualized mastoid air cells are well aerated. Bones/joints: Unremarkable. No acute fracture. Soft tissues: Unremarkable. CT/CT head wo con* [id number] IMPRESSION: No acute intracranial abnormality.
== END 2022-06-16 20:17 | disposition home or self-care (01) ==
PROVIDERS: Emergency Provider Nurse Practitioner Family
DX: F07.81 Postconcussional syndrome (principal); F17.210 Nicotine dependence, cigarettes, uncomplicated; J44.9 Chronic obstructive pulmonary disease, unspecified
CPT/HCPCS: 70450; 81025; 99284

== ENCOUNTER 2022-08-28 10:36 | Outpatient (CLI) | payer BC, MEDICAID, SELFPAY ==
--- NOTE | 2022-08-28 10:51 | MM_ITS ---
WS: [id number] DIAGNOSTIC BILATERAL DIGITAL BREAST TOMOSYNTHESIS MAMMOGRAPHY WITH CAD RIGHT breast ultrasound, limited HISTORY: RT BREAST LUMP, LOWER INNER QUAD COMPARISON: None available. TECHNIQUE: Bilateral craniocaudad, mediolateral oblique, and mediolateral views are submitted with to mosynthesis and SM. Spot compression RIGHT CC and MLO. Computer aided detection utilized. Breast composition: There are scattered areas of fibroglandular density. Palpable markers are placed along the medial and lateral aspect of the RIGHT breast. Multiple palpable abnormalities are indicate d. There is no underlying mass or distortion. No calcifications. LEFT breast is also negative. RIGHT breast ultrasound, limited ultrasound is directed at 3:00, 4:00, 5:00, 6:00 10:00, 11:00 and 12 :00. There are no underlying masses. No distortion. No cystic or solid mass. MM/[place] [id number] IMPRESSION: BI-RADS: 1-Negative FOLLOW UP: 1 Year Follow-up No mammographic or ultrasound abnormalities are identified in the palpable loca tions RIGHT breast.
== END 2022-08-28 10:37 | disposition home or self-care (01) ==
LOC: RAD 10:46
PROVIDERS: PCP Family Medicine; Visit Provider Family Medicine
DX: N63.14 Unspecified lump in the right breast, lower inner quadrant (principal); N64.4 Mastodynia
CPT/HCPCS: 76642; 77062; G0279

== ENCOUNTER 2023-07-15 13:45 | Outpatient (CLI) | payer BC, MEDICAID, SELFPAY ==
--- NOTE | 2023-07-15 14:10 | US_ITS ---
WS: [id number] US pelv w/transvag [id number] HISTORY: MENORRHAGIA COMPARISON: None available. Uterus: 9.2 cm x 6.0 cm x 4.4 cm. Normal size anteverted uterus. No fibroid or mass. Endometrium: 0.9 cm. Trilaminar normal endometrium. Right ovary: 2.5 cm x 2.1 cm x 1.5 cm. Normal size and vascularity, no cystic or solid masses. Left ovary: 3.2 cm x 2.0 cm x 2.7 cm. Normal size and vascularity, no cystic or solid masses. Septate d follicle or 2 small follicles are present. The entire complex measures 1.0 x 0.7 x 1.8 cm. No free fluid in the cul-de-sac. IMPRESSION: Normal transabdominal and transvaginal pelvic ultrasounds. Normal endometrium.
== END 2023-07-15 13:46 | disposition home or self-care (01) ==
PROVIDERS: PCP Family Medicine; Visit Provider Family Medicine
DX: N94.6 Dysmenorrhea, unspecified (principal)
CPT/HCPCS: 76830; 76856

== ENCOUNTER 2024-05-13 16:24 | Emergency (ER) | payer BC, MEDICAID, SELFPAY ==
[2024-05-13 16:46] VITALS: BP 93/64; PULSE 97; RESP 16; TEMP 36.6; O2SAT 97; BMI 33.3
--- NOTE | 2024-05-13 19:21 | CTR_ITS ---
PROCEDURE INFORMATION: Exam: CT Abdomen And Pelvis Without Contrast Exam date and time: 05/13/2024 7:26 PM Age: 39 years old Clinical indication: Prior surgery; Surgery date: 6+ months; Surgery type: Gb. Tubal. Patient HX: C/O back pain. Diagnosed with UTI yesterday. History of nephrolithiasis. ; Additional info: Rule out stone TECHNIQUE: Imaging protocol: Computed tomography of the abdomen and pelvis without contrast. Radiation optimization: All CT scans at this facility use at least one of these dose optimization techniques: automated exposure control; mA and/or kV adjustment per patient size (includes targeted exams where dose is matched to clinical indication); or iterative reconstruction. COMPARISON: CT kidney stone [id number] 01/06/2019 12:08 AM RADIATION DOSE METRICS: Total DLP (mGy-cm): 764.74 FINDINGS: Liver: Normal. No mass. Gallbladder and biliary ducts: Cholecystectomy. Pancreas: Normal. No ductal dilation. Spleen: Normal. No splenomegaly. Adrenal glands: Normal. No mass. Kidneys and ureters: Bilateral nonobstructing renal calyceal stones. Stomach and bowel: Moderate constipation. Appendix: No evidence of appendicitis. Intraperitoneal space: Unremarkable. No free air. No significant fluid collection. Vasculature: Unremarkable. No abdominal aortic aneurysm. Lymph nodes: Unremarkable. No enlarged lymph nodes. Urinary bladder: Unremarkable as visualized. Reproductive: Prominent fluid in the uterine cavity, likely related to menstrual status. Bones/joints: Unremarkable. No acute fracture. Soft tissues: Unremarkable. CT/CT kidney stone [id number] IMPRESSION: 1. Negative for a focal acute inflammatory process in abdomen or pelvis. 2. Prominent fluid in the uterine cavity, likely related to menstrual status. 3. Cholecystectomy. 4. Bilateral nonobstructing renal calyceal stones. 5. Moderate constipation.
--- NOTE | 2024-05-13 19:22 | ED_ITS ---
HPI - Female Genitourinary 2 General: Chief complaint: Urogenital-Female Stated complaint: hip and back hurts, Time Seen by Provider: 05/13/24 18:46 History of Present Illness: Patient is a 38-year-old female who presents to the emergency department with complaints of suprapubic pain, flank pain bilaterally and burning. Onset of symptoms 2 days ago. Patient was evaluated yesterday in the urgent care and was started on antibiotics. Patient is taken 3 doses but her symptoms are progressively worsening. She also notes fever, chills, intense back pain. He does have a history of renal stones. Patient medical history also includes depression, asthma, COPD Last menstrual cycle unclear. Patient states sometime in the last month. Has had irregular periods for a while. Associated symptoms: Deny headache(s) or nausea Related Data Previous Rx's Medication Instructions Recorded fluticasone propionate 50 1 spray intranasal BID #16 grams 12/11/20 mcg/actuation nasal spray,suspension (Flonase Allergy Relief) montelukast 10 mg tablet 10 mg PO DAILY #30 tabs 02/02/23 budesonide-formoterol HFA 80 2 puff inhalation BID #10.2 grams 10/06/23 mcg-4.5 mcg/actuation aerosol inhaler (Symbicort) albuterol sulfate 1.25 mg/3 mL 1.25 mg (3 mL) inhalation Q4H PRN 12/06/23 solution for nebulization shortness of breath or wheezing #90 mL albuterol sulfate 90 mcg/actuation 1 inh inhalation Q4H PRN shortness 01/05/24 aerosol inhaler of breath or wheezing #8.5 grams phenazopyridine 200 mg tablet 200 mg PO Q8H 9 doses #7 tabs 05/13/24 (Pyridium) Allergies Allergy/AdvReac Type Severity Reaction Status Date / Time No Known Allergies Allergy Verified 01/05/24 15:31 Review of Systems 2 General: Reports: 10 or more systems reviewed and unremarkable except in HPI and below Narrative: Reports: Dysuria, burning, increased frequency, fevers and chills, flank pain, suprapubic abdominal pain, malaise and fatigue Const: Denies: change in appetite, change in weight or malaise Eyes: Denies: change in vision, eye discomfort, eye discharge or eye redness ENMT: Denies: throat pain, enlarged tonsils, odynophagia, hoarseness, ear or mastoid pain, ear discharge, change in hearing, tinnitus, nasal discharge, nasal congestion, post nasal drip or sinus pain Card: Denies: chest pain, palpitations, irregular heart rhythm, edema, dyspnea on exertion, orthopnea or leg pain with exertion Resp: Denies: dyspnea, productive cough, non-productive cough, wheezing, stridor or chest congestion GI: Denies: nausea, vomiting, dysphagia, diarrhea, constipation, bloating, GI cramping or hematochezia : Denies: difficulty voiding, urinary frequency, urinary hesitancy, oliguria or hematuria Musc: Denies: neck pain, back pain, extremity pain, joint pain, joint swelling, joint redness, joint warmth or muscle weakness Skin/Breast: Denies: rash, pruritus, erythema, photosensitivity or new lesions Neuro: Denies: headache(s), numbness in extremities, weakness in extremities, sensory changes, lack of coordination, difficulty walking, frequent falls, dizziness, confusion, Slurred speech present, difficulty communicating thoughts, seizure-like activity or involuntary movements Endo: Denies: polyuria, polydipsia or tired all the time Michele/Lymph: Denies: easy bruising or easy bleeding PFSH ED 2 PFSH: Medical History H/O renal calculi H/O: depression Asthma-COPD overlap syndrome Surgical History Hx of cholecystectomy H/O tubal ligation Family History Grandmother Diabetes Grandfather Stroke Denies family history of Colon cancer Ovarian cancer Heart disease Breast cancer Hypertension Uterine cancer Thyroid disease Social History Smoking and tobacco/nicotine status: current every day tobacco/nicotine user (1 ppd) cigarettes Packs smoked per day: 0.5 [ Other cigarette details: [id number]] Quit status (tobacco/nicotine): considering quitting Second hand smoke exposure: Yes Alcohol intake: current Alcohol intake frequency: holidays/special occasions only Alcohol type: wine Substance/Drug Use: never Caregiver/support person: No Lives independently: Yes Household members: children Housing: House Marital status: service: No Current occupational status: employed Pets and animals: Yes Do you think of yourself as: Straight/Heterosexual Current gender identity: Female Physical Exam 2 Const: COMMON NORMALS: no acute distress, patient oriented x3 and alert G ENERAL APPEARANCE: cooperative ORIENTATION/CONSCIOUSNESS: Yes awake, Yes oriented to person, Yes oriented to place and Yes oriented to time HENMT: COMMON NORMALS: normocephalic and atraumatic HEAD & SCALP: n ormocephalic and atraumatic FACE & SINUS: normal facial exam MOUTH: Normal oral and palatal mucosa present THROAT: posterior oropharynx normal Eye: COMMON NORMALS: Equal, round and reactive pupils present, EOMs intact bilaterally, conjunctivae normal and no scleral icterus GENERAL EYE: a ppearance normal, both eyes and all related structures ALIGNMENT: Yes alignment normal PERIORBITAL: periorbital findings normal CONJUNCTIVA: Yes conjunctivae normal PUPIL: Yes Equal, round and reactive pupils present Neck/C-Spine: COMMON NORMALS: full ROM GENERAL: Yes normal visual inspection Lymph: LYMPHATIC: no lymphadenopathy noted Chest: COMMONS NORMALS: normal inspection of the chest Breast/axilla inspection: Yes no chest deformity, asymmetry, normal contours, no nodules, masses, tenderness Resp: COMMON NORMALS: normal respiratory effort, No retractions, No use of accessory muscles and clear to auscultation bilaterally EFFORT & INSPECTION: Yes able to speak in complete sentences and Yes symmetric chest movement A USCULTATION: clear to auscultation bilaterally Cardio: COMMON NORMALS: regular rate, regular rhythm and Peripheral pulses 2+ throughout RATE: regular rate RHYTHM: regular rhythm PERIPHERAL PULSES: Peripheral pulses 2+ throughout GI: COMMON NORMALS: Normal to inspection, nondistended, normoactive bowel sounds present, Soft to palpation, non-tender and No hepatosplenomegaly present INSPECTION: Yes normal to inspection AUSCULTATION: Yes normoactive bowel sounds PALPATION: Yes Soft to palpation and Yes No hepatosplenomegaly present RECTAL EXAM: deferred Extremity: COMMON NORMALS: normal to inspection GENERAL: Yes normal exam except as noted Neuro: COMMON NORMALS: patient oriented x3 SENSORIUM/ORIENTATION: Yes alert, Yes oriented to person, Yes oriented to place and Yes oriented to time CRANIAL NERVES: Yes CN normal except as noted Psych: COMMON NORMALS: mental status grossly normal, Normal thought process present, cooperative, activity/motor behavior normal, denies homicidal ideation and denies suicidal ideation THOUGHT PROCESS: Normal thought process present Skin: COMMON NORMALS: no rashes or lesions noted, no wounds and turgor normal GENERAL SKIN EXAM: no rashes or lesions noted and turgor normal Course 2 Vital Signs: Vital signs: Vital Signs Temperature 97.9 F 05/13/24 16:46 Pulse Rate 72 05/13/24 20:00 Respiratory Rate 16 05/13/24 20:00 Blood Pressure 91/42 05/13/24 20:00 Pulse Oximetry 96 05/13/24 20:57 Oxygen Delivery Me thod Room Air 05/13/24 20:00 MDM - Female Medical Decision Making Patient evaluated in the emergency department today for complaints of burning with urination, flank pain bilateral and fevers and chills. She is already being treated for a urinary tract infection but it is unclear what she was prescribed She is taken 3 doses but is only getting worse. They obtain a new urine specimen and gotten baseline labs CBC and CMP Kain ordered a CT renal protocol as patient has a history of renal stones. Laboratory findings returned. Patient has no leukocytosis, anemias, electrolyte abnormalities. Patient does have an elevated creatinine without history of chronic kidney disease. GFR is low as well. Patient and I discussed these diagnostics. We also talked about her abdomen pelvis CT. There is no evidence of hydronephrosis or acute inflammatory process in the abdomen or pelvis. There is prominent fluid collection in the uterine cavity. 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 No evidence of urethral or ureter stones. She does have bilateral nonobstructing renal calyceal we will stones. Patient received 1 L of normal saline while here in the emergency department. She also received Toradol, Zofran, morphine. None of these medications helped particularly. However, I gave her a dose of Pyridium and this seemed to resolve much of her complaints. She is going to go home with a take-home pack of 1?Pyridium She already has Bactrim prescribed and filled. She needs to continue taking that as prescribed High radium prescription has been sent to pharmacy. Patient will pick that up Wednesday. Patient is to return to the emergency department for new concerning or worsening symptoms Lab Data 05/13/24 20:07 05/13/24 20:07 Radiology Impressions Abdomen/Pelvis CT 05/13/24 19:21 IMPRESSION: 1. Negative for a focal acute inflammatory process in abdomen or pelvis. 2. Prominent fluid in the uterine cavity, likely related to menstrual status. 3. Cholecystectomy. 4. Bilateral nonobstructing renal calyceal stones. 5. Moderate constipation. Laboratory Results WBC 5.65 10^3/uL (3.29-11.43) 05/13/24 20:07 RBC 4.79 10^6/uL (3.85-5.65) 05/13/24 20:07 Hgb 13.20 g/dL (11.27-16.99) 05/13/24 20:07 Hct 40.5 % (36-47) 05/13/24 20:07 MCV 84.6 fl (85-98) L 05/13/24 20:07 MCH 27.6 pg (27-33) 05/13/24 20:07 MCHC 32.6 g/dL (30-55) 05/13/24 20:07 RDW 13.2 % (12.1-15.1) 05/13/24 20:07 Plt Count 277 10^3/cmm (157-399) 05/13/24 20:07 MPV 10.0 fL (7.4-10.4) 05/13/24 20:07 Neut % (Auto) 78.1 % 05/13/24 20:07 Lymph % (Auto) 13.6 % 05/13/24 20:07 [place] % (Auto) 3.9 % 05/13/24 20:07 Eos % (Auto) 3.0 % 05/13/24 20:07 Baso % (Auto) 0.7 % 05/13/24 20:07 Neut # (Auto) 4.41 10^3/uL (1.8-7.7) 05/13/24 20:07 Lymph # (Auto) 0.8 10^3/uL (0.8-4.8) 05/13/24 20:07 [place] # (Auto) 0.2 10^3/uL (0.2-0.9) 05/13/24 20:07 Eos # (Auto) 0.2 10^3/uL (0.0-0.8) 05/13/24 20:07 Baso # (Auto) 0.0 10^3/uL (0.0-0.1) 05/13/24 20:07 Nucleated RBC % (auto) 0 % 05/13/24 20:07 Nucleated RBCs # 0.0 /100WBC 05/13/24 20:07 Sodium 135 mmol/L (136-145) L 05/13/24 20:07 Potassium 4.0 mmol/L (3.5-5.1) 05/13/24 20:07 Chloride 101 mmol/L (98-107) 05/13/24 20:07 Carbon Dioxide 24 mmol/L (22-29) 05/13/24 20:07 Anion Gap 14.0 (5-19) 05/13/24 20:07 BUN 10 mg/dL (6-20) 05/13/24 20:07 Creatinine 1.1 mg/dL (0.5-0.9) H 05/13/24 20:07 GFR Calculation 54.7 mL/min (90-130) L 05/13/24 20:07 Glucose 92 mg/dL (65-115) 05/13/24 20:07 Calculated Osmolality 279 mOsm/kg (285-295) L 05/13/24 20:07 Calcium 8.7 mg/dL (8.5-10.5) 05/13/24 20:07 HCG, Qual Negative (Negative) 05/13/24 19:30 Urine Color Yellow (Yellow) 05/13/24 19:30 Urine Appearance Cloudy (CLEAR) A 05/13/24 19:30 Urine pH 6.0 (5-7) 05/13/24 19:30 Ur Specific [place] 1.019 (1.005-1.030) 05/13/24 19:30 Urine Protein Negative (Negative) 05/13/24 19:30 Urine Glucose (UA) Negative (Normal) 05/13/24 19: Urine Ketones Trace (Negative) 05/13/24 19:30 Urine Blood Negative (Negative) 05/13/24 19:30 Urine Nitrate Negative (Negative) 05/13/24 19:30 Urine Bilirubin Negative (Negative) 05/13/24 19:30 Urine Urobilinogen 1.0 mg/dL (Negative) 05/13/24 19:30 Ur Leukocyte Esterase 3+ (Negative) A 05/13/24 19:30 Urine RBC 0-2 /hpf (0-2) 05/13/24 19:30 Urine WBC 21-50 /hpf (0-5) H 05/13/24 19:30 Ur Squamous Epith Cells 51-100 /hpf (0-5) 05/13/24 19:30 Amorphous Sediment Not Reportable 05/13/24 19:30 Urine Bacteria 4+ /hpf (NONE) H 05/13/24 19:30 Hyaline Casts 1.21 /lpf 05/13/24 19:30 All radiology interpretation(s) finalized by discharge Discharge Plan Discharge Patient Disposition: Home Clinical Impression: Dysmenorrhea, Urinary tract infection Condition: Stable Prescriptions: New phenazopyridine [Pyridium] 200 mg tablet 200 mg PO Q8H Qty: 7 0RF No Action albuterol sulfate 90 mcg/actuation HFA aerosol inhaler 1 inh inhalation Q4H PRN (Reason: shortness of breath or wheezing) Qty: 8.5 11RF fluticasone propionate [Flonase Allergy Relief] 50 mcg/actuation spray,suspension 1 spray intranasal BID Qty: 16 3RF Rx Instructions: administer into each nostril montelukast 10 mg tablet 10 mg PO DAILY Qty: 30 5RF budesonide-formoterol [Symbicort] 80-4.5 mcg/actuation HFA aerosol inhaler 2 puff inhalation BID Qty: 10.2 6RF albuterol sulfate 1.25 mg/3 mL solution for nebulization 1.25 mg inhalation Q4H PRN (Reason: shortness of breath or wheezing) Qty: 90 2RF Discharge Orders: Discharge ED (Routine); Ordered 05/13/24 Ordered By: Darryl Spicer Referrals: Theresa Francois DO [Primary Care Provider] - Discharge Diet: Advance as tolerated Discharge Activity: Resume usual activity Patient Instructions: Abdominal Pain (ED), Opioid Safety, Pain Management, Urinary Tract Infection - Women Activity Restrictions/Additional Instructions: Please take your antibiotics previously prescribed?Bactrim. This is the right drug for urinary tract infection. Please use the Pyridium as needed and as prescribed for bladder spasms Drink plenty of fluids Follow-up with your primary care doctor this week. Call Wednesday for an appointment Coding Level of Care Code ED Change Management Director for Isaac Garcia
[2024-05-13 19:43] LABS: HCG Qualitative Urine. Negative (Negative)
[2024-05-13 19:47] LABS: Bilirubin Urine Negative (Negative); Blood Urine Negative (Negative); Glucose Urine UA Negative (Normal); Ketones Urine Trace (Negative); Leukocyte Esterase Urine 3+ (Negative); Nitrate Urine Negative (Negative); Protein Urine Negative (Negative); Specific Gravity, Urine 1.019 (1.005-1.030); Urine Appearance Cloudy (CLEAR); Urine Color Yellow (Yellow)
[2024-05-13 19:49] LABS: Add Urine Microscopic? YES; Bacteria Urine 4+ /hpf; Hyaline Casts Urine 1.21 /lpf; RBC Urine 0-2 /hpf (0-2); Squamous Epithelial Cell Urine 51-100 /hpf (0-5); Universal Test for UA Present (0); WBC Urine 21-50 /hpf (0-5)
[2024-05-13 20:00] VITALS: BP 91/42; PULSE 72; RESP 16; O2SAT 99
[2024-05-13 20:08] LABS: Add Urine Culture? No
[2024-05-13] MEDS: ketorolac 30 mg/mL INJ IVP (20:09)
[2024-05-13] MEDS: sodium chloride 0.9% 1,000 ML 999 ML IV (20:09)
[2024-05-13 20:12] LABS: Basophils % 0.7 %; Eosinophils # 0.2 10^3/uL (0.0-0.8); Hematocrit 40.5 % (36-47); Lymphocytes # 0.8 10^3/uL (0.8-4.8); Lymphocytes % 13.6 %; Mean Corpuscular HGB Conc 32.6 g/dL (30-55); Mean Corpuscular Hemoglobin 27.6 pg (27-33); Mean Corpuscular Volume 84.6 fl (85-98); Monocytes # 0.2 10^3/uL (0.2-0.9); Monocytes % 3.9 %; Neutrophils # 4.41 10^3/uL (1.8-7.7); Neutrophils % 78.1 %; Nucleated Red Blood Cells % 0 %; Platelet Count 277 10^3/cmm (157-399); Red Blood Count 4.79 10^6/uL (3.85-5.65); Red Cell Distribution Width 13.2 % (12.1-15.1); White Blood Count 5.65 10^3/uL (3.29-11.43)
[2024-05-13 20:31] LABS: Blood Urea Nitrogen 10 mg/dL (6-20); Calcium 8.7 mg/dL (8.5-10.5); Carbon Dioxide 24 mmol/L (22-29); Chloride 101 mmol/L (98-107); Glomerular Filtration Rate 54.7 mL/min (90-130); Glucose 92 mg/dL (65-115); Osmolality Calculated 279 mOsm/kg (285-295); Sodium 135 mmol/L (136-145)
[2024-05-13 20:57] VITALS: O2SAT 96
[2024-05-13] MEDS: phenazopyridine 100 mg Tablet 200 MG PO (20:57)
[2024-05-13] MEDS: morphine 4 mg/mL SDV 1 mL IVP (20:57)
[2024-05-13 21:47] VITALS: BP 113/85; PULSE 90; RESP 16; O2SAT 98
== END 2024-05-13 21:42 | disposition home or self-care (01) ==
PROVIDERS: Emergency Provider Nurse Practitioner; PCP Family Medicine
DX: N39.0 Urinary tract infection, site not specified (principal); N94.6 Dysmenorrhea, unspecified; F17.210 Nicotine dependence, cigarettes, uncomplicated; J44.9 Chronic obstructive pulmonary disease, unspecified; Z87.442 Personal history of urinary calculi
CPT/HCPCS: 74176; 80048; 81001; 81025; 85025; 96374; 96375; 99285; J1885; J2270; J7030

== ENCOUNTER → 2025-04-02 14:04 | Outpatient (BNVA) | payer BC, MEDICAID, SELFPAY | PROVIDERS: PCP Family Medicine; Visit Provider Family Medicine | DX: D50.9 Iron deficiency anemia, unspecified (principal); N92.0 Excessive and frequent menstruation with regular cycle; R53.83 Other fatigue; Z13.6 Encounter for screening for cardiovascular disorders | CPT/HCPCS: 80053; 80061; 82728; 83550; 84443; 85025 ==